=== PATIENT | female | born 1955 | race Caucasian/White ===

== ENCOUNTER 2016-09-22 13:11 | Emergency (ER) | payer OTHER ==
[2016-09-22 14:30] VITALS: BP 122/90
--- NOTE | 2016-09-22 14:47 | ED ---
Respiratory - History of Current Complaint Chief Complaint: UCRespiratory Stated Complaint: COUGH AND ACHES Hx Obtained From: Patient Onset/Duration: Gradual Onset - started last week with runny nose, now has dry cough and sinus leander. 3 months ago was treated for bronchitis and got better. Initial Severity: Mild Current Severity: Moderate Character: Cough (Nonproductive) Sputum Amount: Small Sputum Color: Clear Aggravating Factor(s): Nothing Alleviating Factor(s): Nothing - has tried no meds Associated Signs and Symptoms: Negative - no fever - Allergy/Home Medications Allergies/Adverse Reactions: Allergies Allergy/AdvReac Type Severity Reaction Status Date / Time Tramadol Allergy Intermediate Rash Verified 03/16/16 17:05 Codeine Allergy Unknown See Comment Verified 03/16/16 17:05 Ibuprofen AdvReac Intermediate stomach Verified 03/16/16 17:05 upset Sulfamethoxazole AdvReac Intermediate stomach Verified 03/16/16 17:05 w/Trimethoprim upset [From Bactrim] Amoxicillin AdvReac GI Upset Verified 03/16/16 17:05 PMH/Surg Hx/FS Hx/Imm Hx Previously Healthy: Yes Endocrine/Hematology History: Denies: Hx Anticoagulant Therapy, Hx Blood Disorders, Hx Blood Transfusions, Hx Bone Marrow Disease, Hx Diabetes, Hx Systemic Lupus Erythematosus, Hx Sickle Cell Disease, Hx Thyroid Disease, Hx Anemia, Hx Unexplained Bleeding Cardiovascular History: Reports: Hx Angina, Hx Hypercholesterolemia, Hx Hypertension, Other Cardiovascular Problems/Disorders - Hx HTN Denies: Hx Aneurysm, Hx Angioplasty, Hx Auto Implanted Cardiovert Defib, Hx Cardiac Arrest, Hx Cardiomegaly, Hx Congenital Heart Disease, Hx Congestive Heart Failure, Hx Coronary Artery Disease, Hx Deep Vein Thrombosis, Hx Embolism , Hx Hypotension, Hx Myocardial Infarction, Hx Pacemaker/ICD, Hx Rheumatic Fever , Hx Syncope, Hx Valvular Heart Disease Respiratory History: Reports: Hx Seasonal Allergies Denies: Hx Asthma, Hx Chronic Bronchitis, Hx Chronic Obstructive Pulmonary Disease (COPD), Hx Cystic Fibrosis, Hx Lung Cancer, Hx Pleural Effusion, Hx Pneumonia, Hx Pulmonary Edema, Hx Pulmonary Embolism, Hx Sleep Apnea GI History: Reports: Hx Irritable Bowel Denies: Hx Cirrhosis, Hx Crohn's Disease, Hx Diverticulosis, Hx Gall Bladder Disease, Hx Gastroesophageal Reflux Disease, Hx Gastrointestinal Bleed, Hx Hiatal Hernia, Hx Jaundice, Hx Obstructive Bowel, Hx Ulcer History: Reports: Hx Kidney Stones Denies: Hx Acute Renal Failure, Hx Chronic Renal Failure, Hx Dialysis, Hx Kidney Infection, Hx Renal Disease Musculoskeletal History: Reports: Hx Arthritis, Hx Back Problems, Hx Orthopedic Injury - broken left foot x2, Hx Osteoporosis, Hx Scoliosis Denies: Hx Rheumatoid Arthritis, Hx Bursitis, Hx Congenital Bone Abnormalities, Hx Fibromyalgia, Hx Gout, Hx Tendonitis Sensory History: Reports: Hx Contacts or Glasses - bifocals Denies: Hx Cataracts, Hx Glaucoma, Hx Macular Degeneration, Hx Deafness, Hx Hearing Aid Opthamlomology History: Reports: Hx Contacts or Glasses - bifocals Denies: Hx Cataracts, Hx Glaucoma, Hx Macular Degeneration Psychiatric History: Reports: Hx Anxiety, Hx Depression, Hx Community Mental Health Tx Denies: Hx Attention Deficit Hyperactivity Disorder, Hx Eating Disorder, Hx Panic Disorder, Hx Post Traumatic Stress Disorder, Hx Inpatient Treatment, Hx Schizophrenia, Hx Bipolar Disorder, Hx Suicide Attempt, Hx of Violent Episodes Against Others, Hx Substance Abuse - Cancer History Hx Chemotherapy: No Hx Radiation Therapy: No - Surgical History Surgery Procedure, Year, and Place: LEFT and Right BREAST cys REMOVED. tonsillectomy 1957. tubal ligation 1996 - Immunization History Date of Tetanus Vaccine: Unk Date of Influenza Vaccine: Fall 2012 Infectious Disease History: No Infectious Disease History: Denies: Hx Hepatitis, Hx Tuberculosis, History Other Infectious Disease, Traveled Outside the [place] in Last 30 Days - Family History Known Family History: Positive: Diabetes - Social History Occupation: Disabled Lives: Alone Alcohol Use: None Substance Use Type: Reports: None Hx Tobacco Use: No Smoking Status (MU): Former Smoker Have You Smoked in the Last Year: No Review of Systems Constitutional: Negative Negative: Fever, Chills Eyes: Negative Negative: Drainage Positive: Nasal Discharge - clear. Negative: Sore Throat Cardiovascular: Negative Positive: Cough. Negative: Shortness Of Breath Gastrointestinal: Negative Negative: Abdominal Pain, Diarrhea, Nausea Musculoskeletal: Negative Skin: Negative Negative: Rash Neurological: Negative Negative: Headache Psychological: Normal All Other Systems Reviewed And Are Negative: Yes Physical Exam Triage Information Reviewed: Yes Vital Signs On Initial Exam: Initial Vitals Temp Pulse Resp BP Pulse Ox 97.5 F 78 18 122/90 95 09/22/16 14:27 09/22/16 14:27 09/22/16 14:27 09/22/16 14:27 09/22/16 14:27 Vital Signs Reviewed: Yes Appearance: Positive: Well-Appearing, No Pain Distress, Well-Nourished Skin: Positive: Warm, Skin Color Reflects Adequate Perfusion Eyes: Positive: Conjunctiva Clear ENT: Positive: Pharynx normal, Nasal congestion, TMs normal Neck: Positive: No Lymphadenopathy Respiratory/Lung Sounds: Positive: Clear to Auscultation Cardiovascular: Positive: Normal, RRR, Pulses are Symmetrical in both Upper and Lower Extremities Neurological: Positive: Normal, Sensory/Motor Intact, Alert, Oriented to Person Place, Time Psychiatric: Positive: Normal Diagnostics - Vital Signs Vital Signs Temp Pulse Resp BP Pulse Ox 09/22/16 14:27 97.5 F 78 18 122/90 95 - Laboratory Lab Statement: Any lab studies that have been ordered have been reviewed, and results considered in the medical decision making process. Disposition - Differential Dx - Cardiopulmonary Differential Diagnoses - Cardiopulmonary: Bronchitis, Influenza, Lower Resp Infection, Sinusitis, Other - URI - Diagnoses Provider Diagnoses: Upper respiratory infection Discharge - Discharge Plan Condition: Stable Disposition: HOME Patient Education Materials: Upper Respiratory Infection (ED) Referrals: Kenzie Will MD [Primary Care Provider] - 2 Days (if no better) Additional Instructions: drink extra fluids and rest Use Robitussin DM cough syrup as directed (this is over the counter) return here or to the ER if your symptoms worsen at any time
== END 2016-09-22 15:13 | disposition home or self-care (01) ==
LOC: UCEAST 13:11
DX: J06.9 Acute upper respiratory infection, unspecified (principal); Z88.5 Allergy status to narcotic agent; Z88.6 Allergy status to analgesic agent; Z88.0 Allergy status to penicillin; Z88.2 Allergy status to sulfonamides; Z87.891 Personal history of nicotine dependence
CPT/HCPCS: 99212; G0463

== ENCOUNTER 2017-09-30 13:23 | Emergency (ER) | payer OTHER ==
[2017-09-30 13:42] VITALS: BP 126/93
--- NOTE | 2017-09-30 13:43 | UC ---
Throat Pain/Nasal Augusto HPI - HPI Summary HPI Summary: Pt presents with post nasal drip and cough for the last 3 weeks. She has not taken anything OTC for this. Denies fever, chills, sore throat, SOB, chest pain , abdominal pain, n/v/d/c. - History of Current Complaint Chief Complaint: UCGeneralIllness Stated Complaint: RESP COMPLAINT Time Seen by Provider: 09/30/17 13:40 Hx Obtained From: Patient Hx Last Menstrual Period: na Onset/Duration: Gradual Onset Pain Intensity: 0 Pain Scale Used: 0-10 Numeric Cough: Nonproductive - Allergies/Home Medications Allergies/Adverse Reactions: Allergies Allergy/AdvReac Type Severity Reaction Status Date / Time MS Tramadol [Tramadol] Allergy Intermediate Rash Verified 03/16/16 17:05 nitrofurantoin Allergy Intermediate vomit Verified 09/30/17 13:42 [From Macrobid] MS Codeine [Codeine] Allergy Unknown See Comment Verified 03/16/16 17:05 MS Ibuprofen [Ibuprofen] AdvReac Intermediate stomach Verified 03/16/16 17:05 upset MS Sulfamethoxazole AdvReac Intermediate stomach Verified 03/16/16 17:05 w/Trimethoprim upset [From Bactrim] MS Amoxicillin [Amoxicillin] AdvReac GI Upset Verified 03/16/16 17:05 Home Medications: Home Medications Atenolol TAB* [Tenormin TAB* 25 MG] 25 mg PO DAILY 09/30/17 [History Confirmed 09/30/17] Atorvastatin* [Lipitor*] 40 mg PO 1700 09/30/17 [History Confirmed 09/30/17] OLANzapine TAB* [Zyprexa 2.5 MG TAB*] 2.5 mg PO BEDTIME 09/30/17 [History Confirmed 09/30/17] PMH/Surg Hx/FS Hx/Imm Hx Cardiovascular History: Hypertension Psychological History: Anxiety, Depression, Bipolar Disorder Other History Of: Negative For: Anticoagulant Therapy - Surgical History Surgical History: Yes Surgery Procedure, Year, and Place: LEFT and Right BREAST cys REMOVED. tonsillectomy 1957. tubal ligation 1996 - Family History Known Family History: Positive: Diabetes - Social History Lives: With Family Alcohol Use: None Substance Use Type: None Smoking Status (MU): Former Smoker Have You Smoked in the Last Year: No When Did the Patient Quit Smoking/Using Tobacco: 20 years ago - Immunization History Most Recent Influenza Vaccination: 2014 Most Recent Tetanus Shot: UP TO DATE Most Recent Pneumonia Vaccination: 2011 Review of Systems Constitutional: Negative Skin: Negative Eyes: Negative ENT: Other - Post nasal drip Respiratory: Cough Cardiovascular: Negative Gastrointestinal: Negative Neurological: Negative Psychological: Negative All Other Systems Reviewed And Are Negative: Yes Physical Exam Triage Information Reviewed: Yes Appearance: Well-Appearing, No Pain Distress, Well-Nourished Vital Signs: Initial Vital Signs Temp 99.3 F 09/30/17 13:37 Pulse 76 09/30/17 13:37 Resp 18 09/30/17 13:37 BP 126/93 09/30/17 13:37 Pulse Ox 98 09/30/17 13:37 Vital Signs Reviewed: Yes Eyes: Positive: Conjunctiva Clear. Negative: Conjunctiva Inflamed, Discharge ENT: Positive: Hearing grossly normal, Pharynx normal, Uvula midline, Other - Right ear with occluding cerumen. Negative: Pharyngeal erythema, Nasal congestion, Nasal drainage, TM bulging, TM dull, TM red, Tonsillar swelling, Tonsillar exudate, Muffled voice, Hoarse voice, Sinus tenderness Neck: Positive: Supple, Nontender, No Lymphadenopathy Respiratory: Positive: Chest non-tender, Lungs clear, Normal breath sounds, No respiratory distress, No accessory muscle use Cardiovascular: Positive: RRR, No Murmur, Pulses Normal Neurological: Positive: Alert Psychological: Positive: Age Appropriate Behavior Skin: Negative: rashes Throat Pain/Nasal Course/Dx - Course Course Of Treatment: Cerumen disimpaction of right ear today. Post nasal drip - has not tried anything OTC. Will advise to try claritin and flonase. Tylenol prn discomfort. - Differential Dx/Diagnosis Provider Diagnoses: Post nasal drip. Cerumen impaction right ear Discharge - Discharge Plan Condition: Stable Disposition: HOME Prescriptions: Acetaminophen TAB* [Tylenol TAB*] 325 mg PO Q6H PRN #30 tab PRN Reason: Pain Fluticasone NASAL SPRAY 50MCG* [Flonase NASAL SPRAY 50MCG*] 1 spray BOTH NARES DAILY #1 btl Loratadine [Claritin] 10 mg PO DAILY #14 tablet Patient Education Materials: Postnasal Drip (DC) Referrals: Kenzie Will MD [Primary Care Provider] - Additional Instructions: If you develop a fever, shortness of breath, chest pain, new or worsening symptoms - please call your PCP or go to the ED.
== END 2017-09-30 14:35 | disposition home or self-care (01) ==
LOC: UCEAST 13:23
DX: R09.82 Postnasal drip (principal); H61.21 Impacted cerumen, right ear; I10 Essential (primary) hypertension; F41.9 Anxiety disorder, unspecified; F31.9 Bipolar disorder, unspecified; Z88.6 Allergy status to analgesic agent; Z88.1 Allergy status to other antibiotic agents; Z88.5 Allergy status to narcotic agent; Z88.2 Allergy status to sulfonamides; Z87.891 Personal history of nicotine dependence
CPT/HCPCS: 99213; G0463

== ENCOUNTER 2018-03-14 12:59 | Emergency (ER) | payer OTHER ==
[2018-03-14 13:06] VITALS: BP 119/92
--- OUTSIDE RECORDS SUMMARY | 2018-03-14 13:06 | XMS REPORT ---
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 Active Onset: 06/29/2011 Lumbar sprain Ankita Clements M.D. Active Onset: 06/29/2011 Essential hypertension Ankita Clements M.D. Active Onset: 06/29/2011 Recurrent major depressive episodes Ankita Clements M.D. Active Onset: 06/29/2011 Obesity Ankita Clements M.D. Active Onset: 06/29/2011 Disorder of lipid metabolism Ankita Clements M.D. Active Onset: 10/15/2011 Arthralgia of the pelvic region and Selwyn Pillai M.D. Active thigh Onset: 10/15/2011 Swelling of limb Selwyn Pillai M.D. Active Onset: 01/26/2014 Abnormal renal function Ankita Clements M.D. Active Onset: 07/31/2011 Chronic kidney disease stage 3 Kenzie Will M.D. Active Onset: 01/21/2017 Left bundle branch hemiblock Kenzie Will M.D. 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 2 children cig no social smoker quit 10 yrs ago etoh no exercise no caffiene no Allergies, Adverse Reactions, Alerts Date Description Reaction Status Severity Comments 06/15/2011 Codeine Anaphylaxis, Nausea and active Vomiting 03/27/2013 Tramadol stomach pain active 06/13/2015 Caffeine active 06/06/2016 Macrobid active Nausea, headache Medications Medication Date Status Form Strength Qnty SIG Indications Ordering Provider Multi-Vitamin 02/13/ Active Tablets 30tab 1 by mouth Kenzie Daily 2018 s every day Zully Will Rollator 07/31/ Active Misc 1unit M21.962 Kenzie Ultra-Light/2016 s Rachid Will,Seat M.DPrimitivo And Brakes Wheelchair 07/29/ Active Misc 1unit basket/chair Kenzie 2016 s as needed Dx dawn Will1.962 MPrimitivoDPrimitivo Metoprolol 07/10/ Active Tablets ER 25mg 90tab 1 by mouth Kenzie Succinate ER 2016 24HR s every day Zully Will Elkins-3 08/16/ Active Capsules 1000mg 60cap 2 by mouth Kenzie 2016 s qd. Zully Will Blood Pressure 06/15/ Active Misc 1unit in the I10 Ankita Monitor 2013 s morning and Felipe Clements/Manual at night M.DPrimitivo Inflate Atorvastatin 06/15/ Active Tablets 40mg 90tab take one E78.2 Kenzie Calcium 2013 s tablet by Suman, mouth at M.D. bedtime Colace 01/07/ Active Capsules 100mg 60cap 2 capsules by K59.00 Kenzie 2013 s mouth at Suman, bedtime as M.D. needed for constipation Tylenol 12/30/ Active Tablets 325mg 60tab 2 tabs q Kenzie 2013 s 4hours as larissa Will M.DPrimitivo Calcium 500/D 12/02/ Active Chewtabs 500-400mg 90uni 3 times a day Kenzie 2013 -Unit ts Will, M.D. Walker 10/15/ 1unit as needed 847.2 Ankita 2011 angel Clements M.D. 729.81 Lactaid Ultra 07/25/2011 Active Tablets 9000Unit 60tabs 1 po prn Ankita Clements M.D. Clonazepam Active Tablets .5mg 90tabs 1/2-1 po bid Unknown and 1 at bedtime Sertraline HCL Active Tablets 100mg 90tabs 2 po qd Unknown Bupropion HCL Active Tablets ER 150mg 60tabs 1 po bid Selwyn SR 12HR Zully Pillai Olanzapine Active Tablets 2.5mg 30tabs [address] Garrett Alex Probiotic Active Capsules 1 by mouth Unknown every day Augmentin 08/14/2016 - Hx Tablets 875-125mg 20tabs 1 tab by Jeromy Espino 01/21/2017 mouth twice a 0 Will, day 2 M.D. . 8 1 8 Bactrim DS 06/06/2016 - Hx Tablets 800-160mg 20tabs 1 by mouth Asaf Cortez 07/22/2016 twice a day 3 Isidra, 5 M.D. . 0 Macrobid 06/04/2016 - Hx Capsules 100mg 14caps 1 tab by Asaf Cortez 06/06/2016 mouth twice a 3 Isidra, day x 7 days 5 M.D. . 0 Cleocin 06/17/2015 - Hx Capsules 300mg 28caps 1 capsule Qid Jeromy Dumont 07/21/2015 x 7 days 0 Red, RELIEF DRILLER 3 . 1 1 4 Doxycycline 06/13/2015 - Hx Capsules 100mg 20caps 1 tab by Jeromy Dumont Hyclate 06/17/2015 mouth twice a 0 Red, RELIEF DRILLER day x 10 days 3 . 1 1 9 Azithromycin 01/18/2015 - Hx Tablets 250mg 6tabs take 2 tab on 4 Kenzie 03/18/2015 day 1 then 1 6 Will, tab daily x 4 6 M.D. days . 0 Loratadine 01/05/2015 - Hx Tablets 10mg 30tabs 1 by mouth 9 Kenzie 03/18/2015 every day as 9 Will, needed 5 M.D. . 3 Atenolol 06/15/2014 - Hx Tablets 25mg 90tabs take one Kenzie 07/10/2017 tablet by Suman, mouth once M.D. daily Elkins 3 03/04/2014 - Hx Capsules 1000mg 60caps take 2 Víctor E. 08/16/2016 capsules Isidra, daily M.D. Senna-Tabs 01/07/2014 - Hx Tablets 8.6mg 30tabs 1 tab po 5 Ankita 06/13/2015 every day as 6 Tyree, needed 4 M.D. . 0 0 Fiber 01/07/2014 - Hx Tablets 625mg 30tabs 1 po every 5 Ankita 12/10/2014 day as needed 6 Tyree, for 4 M.D. constipation . 0 0 Tramadol HCL 12/18/2012 - Hx Tablets 50mg 20tabs 1 po 2x per 7 Ankita 01/16/2013 day 2 Tyree, 2 M.D. . 9 3 Flexeril 11/10/2012 - Hx Tablets 10mg 30tabs 1 tab by Ankita 12/10/2014 mouth at Tyree, bedtime as M.D. needed Naproxen 04/15/2012 - Hx Tablets 550mg 60tabs 1 po bid Herminio Sodium 12/18/2012 Zully Pappas Alendronate 03/11/2012 - Hx Tablets 70mg 12tabs 1 po weekly Ankita Sodium 04/08/2012 Zully Clements Lipitor 10/19/2011 - Hx Tablets 40mg 90tabs 1 po qhs Ankita 01/07/2014 Zully Clements Boniva 08/09/2011 - Hx Tablets 150mg 4tabs once a month Deborah 06/15/2014 Zully Jacobo Calcium 07/27/2011 - Hx 60units 2 tabs qd [place] Citrate With 12/02/2012 [place] Vitamin D Zully Ibuprofen 07/25/2011 - Hx Tablets 200mg 90tabs prn Ankita 07/21/2015 Zully Clements Loperamide HCL 07/25/2011 - Hx Capsules 2mg 30caps 2 tabs with Ankita 12/18/2012 first loose Clements, stool, then 1 M.D. q2hr prn loose stool Milk Of 07/25/2011 - Hx Suspension 400mg/5ML Ankita Magnesia 07/25/2011 Zully Clements Lactaid 07/25/2011 - Hx Tablets 3000Unit Ankita 07/25/2011 Zully Clements Lactaid Fast 07/25/2011 - Hx Tablets 9000Unit Ankita Act 07/25/2011 Zully Clements Milk Of 07/25/2011 - Hx Suspension 1200mg/15 1Bottle 30 ml po qd Ankita Magnesia 06/13/2015 ML prn Zully Clements Alendronate 06/29/2011 - Hx Tablets 70mg 12tabs 1 po weekly 7 Ankita Sodium 08/07/2011 3 Tyree, 3 M.D. . 0 0 Calcium 06/29/2011 - Hx Chewtabs 600-400mg 60units 1 tab po 2x 7 Ankita Creamies 07/27/2011 -Unit per day with 3 Tyree, food 3 M.D. . 0 0 Lipitor 06/26/2011 - Hx Tablets 10mg 90tabs 1 po qhs Ankita 10/19/2011 Zully Clements Vitamin D 06/26/2011 - Hx Tablets 1000Unit 30tabs 1 tab po Ankita 08/22/2012 every day Zully Clements Elkins 3 06/26/2011 - Hx Capsules 1000mg 60caps Take 2 Ankita 08/07/2011 capsules gume Clements M.D. Multi-Vitamin - Hx Tablets 30tabs 1 by mouth Kenzie 02/13/2018 every day Zully Will Atenolol - Hx Tablets 50mg 30tabs 1 by mouth Kenzie 06/15/2014 every day uZlly Will Zyprexa - Hx Tablets 2.5mg 90tabs 1 po qhs Unknown 08/22/2012 Multiple - Hx Tablets 100tabs 1 po qd Unknown Vitamin With 08/07/2011 Ginkgo Lovaza - Hx Capsules 1gm 60caps 1 po bid Ankita 10/19/2011 Zully Clements Oxycodone/Acet - Hx Tablets 5-325mg 60tabs 1-2 tabs poq Ankita aminophen 06/13/2015 6 hour only Clements, 2x per day as M.D. needed pain Lomotil - Hx Tablets 2.5-0.025 20tabs po qid prn Unknown 03/27/2013 mg diarrhea Atorvastatin - Hx Tablets 40mg 30tabs 1 po qd Unknown Calcium 01/28/2014 Levaquin - Hx Tablets 500mg 7tabs 1 by mouth Unknown 09/17/2014 every day x 7 days Rollator - Hx 1units Ancelmo Will W/4 07/31/2017 Rachid Espino Brakes, MD Seat Immunizations CPT Code Status Date Vaccine Lot # [id number] Given 01/21/2018 Pneumococcal Conjugate Vaccine 13 Valent For [id number] Intramuscular Use 62574 Given 04/13/2017 Influenza Virus Vaccine, Quadrivalent, Split, Preservative Free [id number] Given 04/13/2017 Influenza Virus Vaccine, Quadrivalent, Split, Preservative Free 80778 Given 07/23/2016 Zoster (Zostavax) [id number] 27564 Given 05/11/2016 Influenza Virus Vaccine, Quadrivalent, Split, Preservative Free [id number] Given 05/17/2015 Flu Vaccine NOS [id number] Given 05/28/2014 Flu Vaccine Split Virus Preservative Free For Indiv 3Yr Older [id number] Given 07/31/2013 Flu Vaccine Split Virus Preservative Free For [id number] Indiv 3Yr Older 91538 Given 06/15/2011 Tdap - Tetanus/Diptheria/Acellular Pertussis [id number] Vital Signs Date Vital Result Comment 01/21/2018 Height 61.3 inches 5'1.30" Weight 182.00 lb Heart Rate 84 /min BP Systolic 130 mmHg R arm BP Diastolic 85 mmHg R arm Body Temperature 98.4 F O2 % BldC Oximetry 98 % BMI (Body Mass Index) 34.0 kg/m2 07/23/2017 Height 61.3 inches 5'1.30" Weight 181.00 lb Heart Rate 77 /min BP Systolic Sitting 130 mmHg BP Diastolic Sitting 90 mmHg O2 % BldC Oximetry 92 % BMI (Body Mass Index) 33.9 kg/m2 01/28/2017 Height 62 inches 5'2" Weight 180.50 lb no shoes Heart Rate 84 /min BP Systolic 126 mmHg Lue reg cuff BP Diastolic 90 mmHg Lue reg cuff BP Systolic Sitting 132 mmHg Rue reg cuff BP Diastolic Sitting 94 mmHg Rue reg cuff BP Systolic Standing 126 mmHg Rue reg cuff BP Diastolic Standing 94 mmHg Rue reg cuff Respiratory Rate 16 /min BMI (Body Mass Index) 33.0 kg/m2 01/21/2017 Weight 179.00 lb Heart Rate 80 /min BP Systolic Sitting 110 mmHg BP Diastolic Sitting 76 mmHg O2 % BldC Oximetry 94 % 08/14/2016 Height 62 inches 5'2" Weight 179.00 lb Heart Rate 93 /min BP Systolic 104 mmHg BP Diastolic 60 mmHg Body Temperature 99.7 F O2 % BldC Oximetry 98 % BMI (Body Mass Index) 32.7 kg/m2 07/23/2016 Height 62 inches 5'2" Weight 181.25 lb Heart Rate 66 /min BP Systolic 120 mmHg BP Diastolic 80 mmHg Body Temperature 98.7 F O2 % BldC Oximetry 98 % BMI (Body Mass Index) 33.1 kg/m2 06/04/2016 Heart Rate 79 /min BP Systolic Sitting 128 mmHg BP Diastolic Sitting 88 mmHg Body Temperature 99.4 F O2 % BldC Oximetry 97 % 05/28/2016 Weight 179.00 lb Heart Rate 77 /min BP Systolic Sitting 120 mmHg BP Diastolic Sitting 86 mmHg Body Temperature 99.2 F O2 % BldC Oximetry 98 % 01/20/2016 Height 61.5 inches 5'1.50" Weight 182.00 lb Heart Rate 73 /min BP Systolic Sitting 128 mmHg BP Diastolic Sitting 80 mmHg Body Temperature 98.7 F BMI (Body Mass Index) 33.8 kg/m2 07/21/2015 Height 61.5 inches 5'1.50" Weight 178.00 lb Heart Rate 80 /min BP Systolic Sitting 139 mmHg BP Diastolic Sitting 93 mmHg Body Temperature 97.6 F BMI (Body Mass Index) 33.1 kg/m2 06/17/2015 Weight 177.00 lb Heart Rate 80 /min BP Systolic Sitting 116 mmHg BP Diastolic Sitting 86 mmHg Body Temperature 98.3 F 06/13/2015 Weight 179.00 lb Heart Rate 93 /min BP Systolic Sitting 109 mmHg BP Diastolic Sitting 69 mmHg Body Temperature 99.6 F 03/18/2015 Height 62 inches 5'2" Weight 177.00 lb Heart Rate 68 /min BP Systolic Sitting 110 mmHg BP Diastolic Sitting 60 mmHg Body Temperature 98.4 F O2 % BldC Oximetry 97 % BMI (Body Mass Index) 32.4 kg/m2 01/18/2015 Weight 178.25 lb Heart Rate 83 /min BP Systolic Sitting 138 mmHg BP Diastolic Sitting 98 mmHg Respiratory Rate 16 /min Body Temperature 98.7 F O2 % BldC Oximetry 95 % 01/05/2015 Weight 177.25 lb Heart Rate 81 /min BP Systolic Sitting 121 mmHg BP Diastolic Sitting 88 mmHg 09/17/2014 Weight 179.00 lb Heart Rate 84 /min BP Systolic Sitting 142 mmHg BP Diastolic Sitting 92 mmHg Body Temperature 98.2 F 08/17/2014 Weight 174.00 lb Heart Rate 64 /min BP Systolic Sitting 126 mmHg BP Diastolic Sitting 82 mmHg Body Temperature 98.3 F 06/15/2014 Weight 170.00 lb Heart Rate 70 /min BP Systolic Sitting 118 mmHg BP Diastolic Sitting 72 mmHg 01/07/2014 Weight 171.00 lb Heart Rate 90 /min BP Systolic Sitting 128 mmHg BP Diastolic Sitting 80 mmHg 10/21/2013 Height 62 inches 5'2" Weight 165.00 lb Heart Rate 86 /min BP Systolic 129 mmHg BP Diastolic 82 mmHg BMI (Body Mass Index) 30.2 kg/m2 09/25/2013 Height 62 inches 5'2" Weight 165.00 lb Heart Rate 78 /min BP Systolic 130 mmHg BP Diastolic 90 mmHg BMI (Body Mass Index) 30.2 kg/m2 08/28/2013 Weight 175.00 lb Heart Rate 76 /min BP Systolic Sitting 126 mmHg BP Diastolic Sitting 82 mmHg 07/31/2013 Weight 176.00 lb Heart Rate 82 /min BP Systolic Sitting 123 mmHg BP Diastolic Sitting 84 mmHg 03/27/2013 Weight 169.25 lb Heart Rate 76 /min BP Systolic Sitting 120 mmHg BP Diastolic Sitting 86 mmHg 01/22/2013 Weight 168.25 lb Heart Rate 74 /min BP Systolic Sitting 136 mmHg BP Diastolic Sitting 95 mmHg 12/18/2012 Weight 168.00 lb Heart Rate 75 /min BP Systolic Sitting 120 mmHg BP Diastolic Sitting 82 mmHg Body Temperature 98.4 F O2 % BldC Oximetry 98 % 09/18/2012 Height 63 inches 5'3" Weight 169.00 lb Heart Rate 72 /min BP Systolic Sitting 122 mmHg BP Diastolic Sitting 68 mmHg Body Temperature 98.8 F BMI (Body Mass Index) 29.9 kg/m2 08/22/2012 Height 63 inches 5'3" Weight 169.00 lb Heart Rate 68 /min BP Systolic Sitting 118 mmHg BP Diastolic Sitting 80 mmHg BMI (Body Mass Index) 29.9 kg/m2 04/08/2012 Height 63 inches 5'3" Weight 173.00 lb Heart Rate 64 /min BP Systolic 118 mmHg BP Diastolic 74 mmHg Respiratory Rate 16 /min Body Temperature 98.3 F BMI (Body Mass Index) 30.6 kg/m2 01/18/2012 Height 63 inches 5'3" Weight 177.00 lb Heart Rate 68 /min BP Systolic Sitting 110 mmHg BP Diastolic Sitting 80 mmHg BMI (Body Mass Index) 31.4 kg/m2 12/07/2011 Height 63 inches 5'3" Weight 172.00 lb Heart Rate 60 /min BP Systolic Sitting 122 mmHg BP Diastolic Sitting 90 mmHg BMI (Body Mass Index) 30.5 kg/m2 11/13/2011 Height 63 inches 5'3" Weight 170.00 lb Heart Rate 64 /min BP Systolic Sitting 126 mmHg BP Diastolic Sitting 90 mmHg BMI (Body Mass Index) 30.1 kg/m2 10/15/2011 Height 63 inches 5'3" Weight 172.00 lb pt has a boot on. Heart Rate 76 /min BP Systolic Sitting 140 mmHg BP Diastolic Sitting 90 mmHg BMI (Body Mass Index) 30.5 kg/m2 08/07/2011 Height 63 inches 5'3" Weight 158.00 lb Heart Rate 76 /min BP Systolic Sitting 130 mmHg BP Diastolic Sitting 80 mmHg BMI (Body Mass Index) 28.0 kg/m2 06/29/2011 Height 63 inches 5'3" Weight 153.00 lb Heart Rate 60 /min BP Systolic Sitting 120 mmHg BP Diastolic Sitting 82 mmHg BMI (Body Mass Index) 27.1 kg/m2 06/15/2011 Height 63 inches 5'3" Weight 150.00 lb Heart Rate 84 /min BP Systolic Sitting 150 mmHg BP Diastolic Sitting 100 mmHg BMI (Body Mass Index) 26.6 kg/m2 Results Test Date Test Result H/L Range Note CBC Auto Diff 12/10/2017 White Blood Count 6.4 10^3/uL 3.5-10.8 Red Blood Count 4.81 10^6/uL 4.0-5.4 Hemoglobin 15.3 g/dL 12.0-16.0 Hematocrit 45 % 35-47 Mean Corpuscular Volume 94 fL 80-97 Mean Corpuscular Hemoglobin 32 pg High 27-31 Mean Corpuscular HGB Conc 34 g/dL 31-36 Red Cell Distribution Width 14 % 10.5-15 Platelet Count 277 10^3/uL 150-450 Mean Platelet Volume 8.2 um3 7.4-10.4 Abs Neutrophils 4.5 10^3/uL 1.5-7.7 Abs Lymphocytes 0.9 10^3/uL Low 1.0-4.8 Abs Monocytes 0.6 10^3/uL 0-0.8 Abs Eosinophils 0.4 10^3/uL 0-0.6 Abs Basophils 0.1 10^3/uL 0-0.2 Abs Nucleated RBC 0 10^3/uL Granulocyte % 70.1 % 38-83 Lymphocyte % 14.0 % Low 25-47 Monocyte % 9.3 % High 0-7 Eosinophil % 5.6 % 0-6 Basophil % 1.0 % 0-2 Nucleated Red Blood Cells % 0.1 Lipid Profile (Trig/Chol/HDL) 07/12/2017 Triglycerides 100 mg/dL 1 Cholesterol 165 mg/dL 2 HDL Cholesterol 69.2 mg/dL 3 LDL Cholesterol 76 mg/dL 4 Comp Metabolic Panel 07/12/2017 Sodium 141 mmol/L 133-145 Potassium 4.1 mmol/L 3.5-5.0 Chloride 106 mmol/L 101-111 Co2 Carbon Dioxide 27 mmol/L 22-32 Anion Gap 8 mmol/L 2-11 Glucose 88 mg/dL 70-100 Blood Urea Nitrogen 22 mg/dL 6-24 Creatinine 1.15 mg/dL High 0.51-0.95 BUN/Creatinine Ratio 19.1 8-20 Calcium 9.6 mg/dL 8.6-10.3 Total Protein 6.2 g/dL Low 6.4-8.9 Albumin 3.9 g/dL 3.2-5.2 Globulin 2.3 g/dL 2-4 Albumin/Globulin Ratio 1.7 1-3 Total Bilirubin 0.60 mg/dL 0.2-1.0 Alkaline Phosphatase 97 U/L 34-104 Alt 14 U/L 7-52 Ast 17 U/L 13-39 Egfr Non- 47.8 >60 Egfr 61.5 >60 5 Basic Metabolic Panel 01/14/2017 Sodium 139 mmol/L 133-145 Potassium 4.0 mmol/L 3.5-5.0 Chloride 106 mmol/L 101-111 Co2 Carbon Dioxide 26 mmol/L 22-32 Anion Gap 7 mmol/L 2-11 Glucose 87 mg/dL 70-100 Blood Urea Nitrogen 24 mg/dL 6-24 Creatinine 1.22 mg/dL High 0.51-0.95 BUN/Creatinine Ratio 19.7 8-20 Calcium 9.7 mg/dL 8.6-10.3 Egfr Non- 44.7 >60 Egfr 57.4 >60 6 Laboratory test finding 07/12/2016 Hepatitis C Antibody Nonreactive Nonreactive 7 Comp Metabolic Panel 07/12/2016 Sodium 140 mmol/L 133-145 Potassium 4.0 mmol/L 3.5-5.0 Chloride 105 mmol/L 101-111 Co2 Carbon Dioxide 29 mmol/L 22-32 Anion Gap 6 mmol/L 2-11 Glucose 89 mg/dL 70-100 Blood Urea Nitrogen 17 mg/dL 6-24 Creatinine 1.22 mg/dL High 0.51-0.95 BUN/Creatinine Ratio 13.9 8-20 Calcium 9.6 mg/dL 8.6-10.3 Total Protein 6.8 g/dL 6.4-8.9 Albumin 4.1 g/dL 3.2-5.2 Globulin 2.7 g/dL 2-4 Albumin/Globulin Ratio 1.5 1-3 Total Bilirubin 0.60 mg/dL 0.2-1.0 Alkaline Phosphatase 101 U/L 34-104 Alt 16 U/L 7-52 Ast 15 U/L 13-39 Egfr Non- 44.8 >60 Egfr 57.6 >60 8 Lipid Profile (Trig/Chol/HDL) 07/12/2016 Triglycerides 111 mg/dL 9 Cholesterol 166 mg/dL 10 HDL Cholesterol 71.6 mg/dL 11 LDL Cholesterol 72 mg/dL 12 Ua Routine 06/04/2016 Ua Specific [place] 1.005 Ua PH 6 Ua Color yellow Ua Appera cloudy Ua WBC ++ Ua Protein trace Ua Glucose neg Ua Ketones neg Ua Bilirubin neg Ua Urobilinogen normal Ua Nitrite positive Ua Occult Blood trace Urine Culture And 06/04/2016 Urine Culture SEE RESULT BELOW 13 Sensitivities Pertussis PCR 10/16/2015 Bordetella Source Nasopharyngeal s <SEE 14 NOTE> Bordetella pertussis PCR Negative 15 Bordetella parapertussis PCR Negative 16 Creatinine Clearance 07/23/2015 Creatinine 1.22 mg/dL High 0.51-0.95 17 Urine Collection Time 24 17 Urine Total Volume 2050 mL 17 Urine Random Creatinine 69.00 mg/dL 17 Creatinine Clearance 81 mL/min Low 88-128 17 Comp Metabolic Panel 07/04/2015 Sodium 137 mmol/L 133-145 Potassium 4.1 mmol/L 3.5-5.0 Chloride 101 mmol/L 101-111 Co2 Carbon Dioxide 29 mmol/L 22-32 Anion Gap 7 mmol/L 2-11 Glucose 81 mg/dL 70-100 Blood Urea Nitrogen 26 mg/dL High 6-24 Creatinine 1.21 mg/dL High 0.51-0.95 BUN/Creatinine Ratio 21.5 High 8-20 Calcium 9.8 mg/dL 8.6-10.3 Total Protein 6.6 g/dL 6.4-8.9 Albumin 4.0 g/dL 3.2-5.2 Globulin 2.6 g/dL 2-4 Albumin/Globulin Ratio 1.5 1-3 Total Bilirubin 0.50 mg/dL 0.2-1.0 Alkaline Phosphatase 104 U/L 34-104 Alt 14 U/L 7-52 Ast 15 U/L 13-39 Egfr Non- 45.4 >60 Egfr 58.4 >60 18 Lipid Profile (Trig/Chol/HDL) 07/04/2015 Triglycerides 100 mg/dL 19 Cholesterol 159 mg/dL 20 HDL Cholesterol 66.8 mg/dL 21 LDL Cholesterol 72 mg/dL 22 Comp Metabolic Panel 02/24/2015 Sodium 140 mmol/L 133-145 Potassium 4.3 mmol/L 3.5-5.0 Chloride 105 mmol/L 101-111 Co2 Carbon Dioxide 30 mmol/L 22-32 Anion Gap 5 mmol/L 2-11 Glucose 79 mg/dL 70-100 Blood Urea Nitrogen 20 mg/dL 6-24 Creatinine 1.08 mg/dL High 0.51-0.95 BUN/Creatinine Ratio 18.5 8-20 Calcium 9.5 mg/dL 8.6-10.3 Total Protein 6.4 g/dL 6.4-8.9 Albumin 4.1 g/dL 3.2-5.2 Globulin 2.3 g/dL 2-4 Albumin/Globulin Ratio 1.8 1-3 Total Bilirubin 0.50 mg/dL 0.2-1.0 Alkaline Phosphatase 103 U/L 34-104 Alt 20 U/L 7-52 Ast 17 U/L 13-39 Egfr Non- 51.8 >60 Egfr 66.6 >60 23 Laboratory test finding 09/17/2014 Cytology RUN DATE: 09/20/ <SEE NOTE> 24 Human Papilloma Virus Rna Negative Negative 25 Basic Metabolic Panel 08/26/2014 Sodium 140 mmol/L 133-145 Potassium 4.0 mmol/L 3.5-5.0 Chloride 107 mmol/L 101-111 Co2 Carbon Dioxide 28 mmol/L 22-32 Anion Gap 5 mmol/L 2-11 Glucose 85 mg/dL 70-100 Blood Urea Nitrogen 18 mg/dL 6-24 Creatinine 1.24 mg/dL High 0.51-0.95 BUN/Creatinine Ratio 14.5 8-20 Calcium 9.5 mg/dL 8.6-10.3 Egfr Non- 44.1 >60 Egfr 56.7 >60 26 Comp Metabolic Panel 08/17/2014 Sodium 140 mmol/L 133-145 Potassium 3.9 mmol/L 3.5-5.0 Chloride 103 mmol/L 101-111 Co2 Carbon Dioxide 30 mmol/L 22-32 Anion Gap 7 mmol/L 2-11 Glucose 89 mg/dL 70-100 Blood Urea Nitrogen 21 mg/dL 6-24 Creatinine 1.28 mg/dL High 0.51-0.95 BUN/Creatinine Ratio 16.4 8-20 Calcium 9.7 mg/dL 8.6-10.3 Total Protein 6.7 g/dL 6.4-8.9 Albumin 4.0 g/dL 3.2-5.2 Globulin 2.7 g/dL 2-4 Albumin/Globulin Ratio 1.5 1-3 Total Bilirubin 0.50 mg/dL 0.2-1.0 Alkaline Phosphatase 98 U/L 34-104 Alt 16 U/L 7-52 Ast 16 U/L 13-39 Egfr Non- 42.7 >60 Egfr 54.9 >60 27 Lipid Profile (Trig/Chol/HDL) 07/29/2014 Triglycerides 123 mg/dL 28, 29 Cholesterol 177 mg/dL 28, 30 HDL Cholesterol 82.4 mg/dL 28, 31 LDL Cholesterol 70 mg/dL 28, 32 Laboratory test 07/29/2014 TSH (Thyroid 2.31 IU/mL 0.34-5.60 28, 33 finding Stimulating Horm) Testosterone 18.67 ng/dL 8-60 28, 34 Dhea 1.3 ng/mL <6.0 28, 35 Urinalysis Profile 03/20/2014 Urine Color Yellow Urine Appearance Clear Urine Specific [place] 1.015 1.010-1.030 Urine pH 6.0 5-9 Urine Urobilinogen Negative Negative Urine Ketones Negative Negative Urine Protein Negative Negative Urine Leukocytes 2+ Negative Urine Blood Negative Negative Urine Nitrite Negative Negative Urine Bilirubin Negative Negative Urine Glucose Negative Negative Urine White Blood Cell 1+(6-10/hpf) Absent Urine Red Blood Cell Trace Absent Urine Bacteria Absent Absent Urine Squamous Epithelial Cell Present Absent Urine Culture And Sensitivities 03/20/2014 Urine Culture (SEE NOTE) 36 Lipid Profile (Trig/Chol/HDL) 02/22/2014 Triglycerides 210 mg/dL 37, 38 Cholesterol 297 mg/dL 37, 39 HDL Cholesterol 55.8 mg/dL 37, 40 LDL Cholesterol 199 mg/dL 37, 41 Creatinine Clearance 01/22/2014 Urine Random Creatinine 71.12 mg/dL 42 Creatinine 1.45 mg/dL High 0.51-0.95 42 Creatinine Clearance 45 mL/min Low 88-128 42 Urine Collection Time 24 42 Urine Total Volume 1325 mL 42 Alkaline Phos Isoenzymes 01/20/2014 Alkaline Phosphatase 136 U/L 46 - 118 Alp Liver 1% 62.8 % 27.8-76.3 Alp Liver 1 85.4 IU/L 16.2-70.2 Alp Liver 2% 8.6 % 0.0-8.0 Alp Liver 2 11.7 IU/L 0.0-5.8 Alp Bone % 28.6 % 19.1-67.7 Alp Bone 38.9 IU/L 12.1-42.7 Alp Intestine % 0.0 % 0.0-20.6 Alp Intestine 0.0 IU/L 0.0-11.0 Alp Placental NotPresent 43 Urinalysis Profile 01/14/2014 Urine Color Yellow Urine Appearance Clear Urine Specific [place] 1.015 1.010-1.030 Urine Esterase Trace Negative Urine Nitrate Negative Negative Urine Urobilinogen Negative E.U./dL Negative Urine Protein Negative mg/dL Negative Urine pH 6.0 5-9 Urine Blood Negative Negative Urine Ketones Negative mg/dL Negative Urine Bilirubin Negative Negative Urine Glucose Negative mg/dL Negative Urine Microscopic 01/14/2014 Urine WBC 1+ (<10 /hpf) None Seen Urine Mucus Present /lpf Absent Urine Epithelial Cells 1+ Urothelial /hpf None Seen Urine Epithelial Cells 1+ Squamous /hpf None Seen Comp Metabolic Panel 01/14/2014 Sodium 138 mmol/L 133-145 Potassium 4.7 mmol/L 3.7-5.6 Chloride 102 mmol/L 101-111 Co2 Carbon Dioxide 28 mmol/L 22-32 Anion Gap 8 mmol/L 2-11 Glucose 85 mg/dL 70-100 Blood Urea Nitrogen 27 mg/dL High 6-24 Creatinine 1.61 mg/dL High 0.51-0.95 BUN/Creatinine Ratio 16.8 8-20 Calcium 10.0 mg/dL 8.6-10.3 Total Protein 7.0 g/dL 6.4-8.9 Albumin 3.9 g/dL 3.2-5.2 Globulin 3.1 g/dL 2-4 Albumin/Globulin Ratio 1.3 1-3 Total Bilirubin 0.50 mg/dL 0.2-1.0 Alkaline Phosphatase 173 U/L High 34-104 Alt 17 U/L 7-52 Ast 14 U/L 13-39 Egfr Non- 32.8 >60 Egfr 42.1 >60 44 Urinalysis Profile 12/30/2013 Urine Color Yellow 45 Urine Appearance Turbid 45 Urine Specific [place] 1.024 1.010-1.030 45 Urine Esterase 3+ Negative 45 Urine Nitrate Positive Negative 45 Urine Urobilinogen Negative E.U./dL Negative 45 Urine Protein 2+ mg/dL Negative 45 Urine pH 5.5 5-9 45 Urine Blood 3+ Negative 45 Urine Ketones Negative mg/dL Negative 45 Urine Bilirubin Negative Negative 45 Urine Glucose Negative mg/dL Negative 45 Urine Microscopic 12/30/2013 Urine WBC 3+ (>30 /hpf) None Seen 45 Urine RBC 2+ (>3-10 /hpf) None Seen 45 Urine Mucus Present /lpf Absent 45 Urine Epithelial Cells 1+ Squamous /hpf None Seen 45 Bacteria Urine 3+ None Seen 45 CBC Auto Diff 12/30/2013 White Blood Count 12.1 10^3/uL High 4.8-10.8 Red Blood Count 4.36 10^6/uL 4.0-5.4 Hemoglobin 13.9 g/dL 12.0-16.0 Hematocrit 41 % 35-47 Mean Corpuscular Volume 93 fL 80-97 Mean Corpuscular Hemoglobin 32 pg High 27-31 Mean Corpuscular HGB Conc 34 g/dL 31-36 Red Cell Distribution Width 14 % 10.5-15 Platelet Count 279 10^3/uL 150-450 Mean Platelet Volume 8 um3 7.4-10.4 Abs Neutrophils 11.9 10^3/uL High 1.5-7.7 Abs Lymphocytes 0.1 10^3/uL Low 1.0-4.8 Abs Monocytes 0.1 10^3/uL 0-0.8 Abs Eosinophils 0 10^3/uL 0-0.6 Abs Basophils 0 10^3/uL 0-0.2 Abs Nucleated RBC 0.01 10^3/uL Granulocyte % 98.1 % High 38-83 Lymphocyte % 1.2 % Low 25-47 Monocyte % 0.5 % Low 1-9 Eosinophil % 0 % 0-6 Basophil % 0.2 % 0-2 Nucleated Red Blood Cells % 0.1 Laboratory test finding 12/30/2013 Lactic Acid 1.4 mmol/L 0.5-2.2 Comp Metabolic Panel 12/30/2013 Sodium 136 mmol/L 133-145 Potassium 4.1 mmol/L 3.7-5.6 Chloride 103 mmol/L 101-111 Co2 Carbon Dioxide 24 mmol/L 22-32 Anion Gap 9 mmol/L 2-11 Glucose 133 mg/dL High 70-100 Blood Urea Nitrogen 21 mg/dL 6-24 Creatinine 1.31 mg/dL High 0.51-0.95 BUN/Creatinine Ratio 16.0 8-20 Calcium 9.5 mg/dL 8.6-10.3 Total Protein 6.8 g/dL 6.4-8.9 Albumin 3.6 g/dL 3.2-5.2 Globulin 3.2 g/dL 2-4 Albumin/Globulin Ratio 1.1 1-3 Total Bilirubin 0.70 mg/dL 0.2-1.0 Alkaline Phosphatase 101 U/L 34-104 Alt 28 U/L 7-52 Ast 23 U/L 13-39 Egfr Non- 41.6 >60 Egfr 53.4 >60 46 Laboratory test finding 12/30/2013 Magnesium 1.8 mg/dL Low 1.9-2.7 CKMB 12/30/2013 CKMB ng/mL 1.0 ng/mL 0.6-6.3 Laboratory test finding 12/30/2013 Troponin I 0.01 ng/mL <0.03 47 Myoglobin 24.8 ng/mL 14.3-65.8 T4 6.21 g/dL 6.09-12.23 TSH (Thyroid Stimulating Horm) 1.55 IU/mL 0.34-5.60 Comp Metabolic Panel 08/28/2013 Sodium 139 mmol/L 133-145 Potassium 4.0 mmol/L 3.5-5.0 Chloride 103 mmol/L 101-111 Co2 Carbon Dioxide 29.0 mmol/L 22-32 Anion Gap 7.0 mmol/L 2-11 Glucose 80 mg/dL 70-100 Blood Urea Nitrogen 21 mg/dL 6-24 Creatinine 1.20 mg/dL 0.50-1.40 BUN/Creatinine Ratio 17.5 8-20 Calcium 9.5 mg/dL 8.1-9.9 Total Protein 5.8 g/dL Low 6.2-8.1 Albumin 3.8 g/dL 3.6-5.4 Globulin 2.0 g/dL 2-4 Albumin/Globulin Ratio 1.9 1-3 Total Bilirubin 0.7 mg/dL 0.4-1.5 Alkaline Phosphatase 97 U/L 30-110 Alt 22 U/L 14-54 Ast 20 U/L 12-42 Egfr Non- 46.0 >60 Egfr 59.1 >60 48 CBC Auto Diff 08/28/2013 White Blood Count 7.8 10^3/uL 4.8-10.8 Red Blood Count 4.67 10^6/uL 4.0-5.4 Hemoglobin 14.8 g/dL 12.0-16.0 Hematocrit 44 % 35-47 Mean Corpuscular Volume 94 fL 80-97 Mean Corpuscular Hemoglobin 32 pg High 27-31 Mean Corpuscular HGB Conc 34 g/dL 31-36 Red Cell Distribution Width 14 % 10.5-15 Platelet Count 270 10^3/uL 150-450 Mean Platelet Volume 9 um3 7.4-10.4 Abs Neutrophils 6.0 10^3/uL 1.5-7.7 Abs Lymphocytes 0.8 10^3/uL Low 1.0-4.8 Abs Monocytes 0.6 10^3/uL 0-0.8 Abs Eosinophils 0.2 10^3/uL 0-0.6 Abs Basophils 0.1 10^3/uL 0-0.2 Abs Nucleated RBC 0 10^3/uL Granulocyte % 77.4 % 38-83 Lymphocyte % 10.6 % Low 25-47 Monocyte % 8.1 % 1-9 Eosinophil % 2.9 % 0-6 Basophil % 1.0 % 0-2 Nucleated Red Blood Cells % 0 Laboratory test finding 08/28/2013 Cytology RUN DATE: <SEE NOTE> Laboratory test finding 07/31/2013 Affirm Vaginal Dna (SEE NOTE) 50 Probe Ua Routine 07/31/2013 Ua Specific [place] 1.005 Ua PH 5 Ua Color yellow Ua Appera clear Ua WBC trace Ua Protein neg Ua Glucose neg Ua Ketones neg Ua Bilirubin neg Ua Urobilinogen neg Ua Nitrite neg Ua Occult Blood neg Vitamin D, 25 Hydroxy 03/27/2013 25-Hydroxy Vitamin D2 <4.0 ng/mL 25-Hydroxy Vitamin D3 46 ng/mL 25-Hydroxy Vitamin D Total 46 ng/mL 51 Lipid Profile (Trig/Chol/HDL) 03/27/2013 Triglycerides 178 mg/dL 40-200 Cholesterol 187 mg/dL Less than 200 HDL Cholesterol 73 mg/dL High 40-60 52 Cholesterol/HDL Ratio 2.6 Average 1-4.44 LDL Cholesterol 78.4 Less Than 100 53 Urine Culture And Sensitivities 03/27/2013 Urine Culture (SEE NOTE) 54 Drug Abuse 20 Urine 03/27/2013 Urine Amphetamine Negative ng/mL 55 Urine Barbiturates Negative ng/mL 56 Urine Benzodiazepines Negative ng/mL 57 Urine Cocaine Negative ng/mL 58 Urine Methadone Negative ng/mL 59 Urine Opiates Negative ng/mL 60 Urine Phencyclidine Negative ng/mL Cutoff: 25 Urine Propoxyphene Negative ng/mL 61 Urine Tetrahydrocannabinol Negative ng/mL Cutoff: 20 62 Creatinine 98.9 mg/dL Specific [place] 1.014 pH 7.1 Oxidants Negative 63 Urine Opiates Screen Negative 64 Urine Codeine Confirmation Negative ng/mL 65 Urine Hydrocodone Confirm Negative ng/mL 66 Urine Hydromorphone Confirm Negative ng/mL 67 Urine Morphine Confirm Negative ng/mL 68 Urine Oxycodone Confirm Negative ng/mL 69 Urine Opiates Interpretation Negative. 70 Ua Routine 03/27/2013 Ua Specific [place] 1.010 Ua PH 5 Ua Color yellow Ua Appera clear Ua WBC trace Ua Protein neg Ua Glucose neg Ua Ketones neg Ua Bilirubin neg Ua Urobilinogen neg Ua Nitrite neg Ua Occult Blood neg Urinalysis W/Microscopic 11/28/2012 Urine Color Yellow Urine Appearance Cloudy Urine Specific [place] 1.027 1.010-1.030 Urine Esterase 3+ Negative Urine Nitrate Negative Negative Urine Urobilinogen Negative E.U./dL Negative Urine Protein Negative mg/dL Negative Urine pH 5.5 5-9 Urine Blood Negative Negative Urine Ketones Negative mg/dL Negative Urine Bilirubin Negative Negative Urine Glucose Negative mg/dL Negative Urine WBC 3+ (>30 /hpf) None Seen Urine RBC None Seen None Seen Urine Mucus Present /lpf Absent Urine Epithelial Cells 2+ Squamous /hpf None Seen Crystals Urine Calcium Oxalate /lpf None Seen Urine Culture And 11/28/2012 Urine Culture (SEE NOTE) 71 Sensitivities Urine Culture And 11/22/2012 Urine Culture (SEE NOTE) 72 Sensitivities Urine Microscopic 11/22/2012 Urine WBC 2+ (>10-30 /hpf) None Seen 73 Urine Mucus Present /lpf Absent Bacteria Urine 1+ None Seen Urinalysis 11/22/2012 Urine Color Yellow Urine Appearance Clear Urine Specific [place] 1.020 1.010-1.030 Urine Esterase 3+ Negative Urine Nitrate Negative Negative Urine Urobilinogen Negative E.U./dL Negative Urine Protein Negative mg/dL Negative Urine pH 5.5 5-9 Urine Blood Negative Negative Urine Ketones Negative mg/dL Negative Urine Bilirubin Negative Negative Urine Glucose Negative mg/dL Negative Ua Routine 09/18/2012 Ua Specific [place] 1.020 Ua PH 5 Ua Color clear Ua Appera clear Ua WBC negative Ua Protein negative Ua Glucose negative Ua Ketones negative Ua Bilirubin negative Ua Urobilinogen negative Ua Nitrite negative Ua Occult Blood negative Laboratory test finding 09/11/2012 Lactic Acid 1.4 mmol/L 0.5-1.6 CBC Auto Diff 09/11/2012 White Blood Count 11.2 10^3/uL High 4.8-10.8 Red Blood Count 4.07 10^6/uL 4.0-5.4 Hemoglobin 12.5 g/dL 12.0-16.0 Hematocrit 38 % 35-47 Mean Corpuscular Volume 92 fL 80-97 Mean Corpuscular Hemoglobin 31 pg 27-31 Mean Corpuscular HGB Conc 33 g/dL 31-36 Red Cell Distribution Width 14 % 10.5-15 Platelet Count 265 10^3/uL 150-450 Mean Platelet Volume 8 um3 7.4-10.4 Abs Neutrophils 10.8 10^3/uL High 1.5-7.7 Abs Lymphocytes 0.2 10^3/uL Low 1.0-4.8 Abs Monocytes 0.1 10^3/uL 0-0.8 Abs Eosinophils 0.1 10^3/uL 0-0.6 Abs Basophils 0.1 10^3/uL 0-0.2 Abs Nucleated RBC 0 10^3/uL Granulocyte % 96.5 % High 38-83 Lymphocyte % 1.5 % Low 25-47 Monocyte % 0.4 % Low 1-9 Eosinophil % 1.1 % 0-6 Basophil % 0.5 % 0-2 Nucleated Red Blood Cells % 0 Laboratory test finding 09/11/2012 B Type Natriuretic Peptide 43.0 pg/mL 0-100 Comp Metabolic Panel 09/11/2012 Sodium 140 mmol/L 133-145 Potassium 3.4 mmol/L Low 3.5-5.0 Chloride 107 mmol/L 101-111 Co2 Carbon Dioxide 24.0 mmol/L 22-32 Anion Gap 9.0 mmol/L 2-11 Glucose 103 mg/dL High 70-100 Blood Urea Nitrogen 19 mg/dL 6-24 Creatinine 1.10 mg/dL 0.50-1.40 BUN/Creatinine Ratio 17.3 8-20 Calcium 8.9 mg/dL 8.1-9.9 Total Protein 6.1 g/dL Low 6.2-8.1 Albumin 3.2 g/dL Low 3.6-5.4 Globulin 2.9 g/dL 2-4 Albumin/Globulin Ratio 1.1 1-3 Total Bilirubin 0.9 mg/dL 0.4-1.5 Alkaline Phosphatase 103 U/L 30-110 Alt 21 U/L 14-54 Ast 31 U/L 12-42 Egfr Non- 51.0 >60 Egfr 65.6 >60 74 Urine Microscopic 09/11/2012 Urine WBC 3+ (>10 /hpf) None Seen Urine RBC 3+ (>10 /hpf) None Seen Bacteria Urine 1+ None Seen Urinalysis 09/11/2012 Urine Color Yellow Urine Appearance Clear Urine Specific [place] 1.022 1.010-1.030 Urine Esterase 3+ Negative Urine Nitrate Negative Negative Urine Urobilinogen Negative E.U./dL Negative Urine Protein Negative mg/dL Negative Urine pH 6.5 5-9 Urine Blood 2+ Negative Urine Ketones Negative mg/dL Negative Urine Bilirubin Negative Negative Urine Glucose Negative mg/dL Negative Laboratory test finding 09/11/2012 Lipase 20 U/L Low 22-51 75 Creatine Kinase 43 U/L 0-200 76 CKMB 0.8 ng/mL 0.3-4.0 77 Troponin I 0 ng/mL 0-0.06 78 Comp Metabolic Panel 08/22/2012 Sodium 140 mmol/L 133-145 Chloride 112 mmol/L High 101-111 Co2 Carbon Dioxide 24.0 mmol/L 22-32 Anion Gap 4.0 mmol/L 2-11 Glucose 81 mg/dL 70-100 Blood Urea Nitrogen 17 mg/dL 6-24 Creatinine 1.00 mg/dL 0.50-1.40 BUN/Creatinine Ratio 17.0 8-20 Calcium 9.2 mg/dL 8.1-9.9 Total Protein 6.7 g/dL 6.2-8.1 Albumin 3.9 g/dL 3.6-5.4 Globulin 2.8 g/dL 2-4 Albumin/Globulin Ratio 1.4 1-3 Total Bilirubin 0.7 mg/dL 0.4-1.5 Alkaline Phosphatase 110 U/L 30-110 Alt 16 U/L 14-54 Ast 18 U/L 12-42 Egfr Non- 56.9 >60 Egfr 73.2 >60 79 Laboratory test 08/22/2012 Potassium 4.0 mmol/L 3.5-5.0 finding Cytology 08/22/2012 Cy RUN DATE: <SEE NOTE> Vitamin D, 25 Hydroxy 08/22/2012 25-Hydroxy Vitamin D2 <4.0 ng/mL 25-Hydroxy Vitamin D3 40 ng/mL 25-Hydroxy Vitamin D Total 40 ng/mL 81 Laboratory test finding 08/08/2012 Potassium 3.9 mmol/L 3.5-5.0 Laboratory test finding 08/08/2012 O P: Giardia/Cryptospor (SEE NOTE) 82 Screen C. difficile Amplified Dna (SEE NOTE) 83 Stool Culture (SEE NOTE) 84 Urine Culture And 08/03/2012 Urine Culture (SEE NOTE) 85 Sensitivities Fecal Lactoferrin 08/03/2012 Fecal Lactoferrin (SEE NOTE) 86 (Stool WBC) (Stool WBC) Urine Microscopic 08/03/2012 Urine WBC 2+ (>10-30 None Seen 87 /hpf) Urine RBC None Seen None Seen Urine Epithelial Cells 1+ Squamous /hpf None Seen Crystals Urine Calcium Oxalate /lpf None Seen Urinalysis 08/03/2012 Urine Color Yellow Urine Appearance Clear Urine Specific [place] 1.026 1.010-1.030 Urine Esterase 2+ Negative Urine Nitrate Negative Negative Urine Urobilinogen Negative E.U./dL Negative Urine Protein Negative mg/dL Negative Urine pH 5.0 5-9 Urine Blood Negative Negative Urine Ketones Trace mg/dL Negative Urine Bilirubin 1+ Negative 88 Urine Glucose Negative mg/dL Negative Manual Differential 08/03/2012 Neutrophil % 80.0 % 38-83 Band % 0 % 0-8 Lymphocytes % 10.0 % Low 25-47 Monocytes % 1.0 % 0-13 Eosinophils % 6.0 % 0-6 Basophil % 0 % 0-2 Reactive Lymph % 3.0 % 0-6 Metamyelocytes % 0 % 0-2 Myelocytes % 0 % 0-1 Promyelocytes % 0 % Blast % 0 % RBC Morphology Normal Normal CBC Auto Diff 08/03/2012 White Blood Count 7.9 10^3/uL 4.8-10.8 Red Blood Count 4.64 10^6/uL 4.0-5.4 Hemoglobin 14.5 g/dL 12.0-16.0 Hematocrit 43 % 35-47 Mean Corpuscular Volume 94 fL 80-97 Mean Corpuscular Hemoglobin 31 pg 27-31 Mean Corpuscular HGB Conc 34 g/dL 31-36 Red Cell Distribution Width 14 % 10.5-15 Platelet Count 272 10^3/uL 150-450 Mean Platelet Volume 8 um3 7.4-10.4 Abs Neutrophils 6.0 10^3/uL 1.5-7.7 Abs Lymphocytes 0.8 10^3/uL Low 1.0-4.8 Abs Monocytes 0.6 10^3/uL 0-0.8 Abs Eosinophils 0.3 10^3/uL 0-0.6 Abs Basophils 0.2 10^3/uL 0-0.2 Abs Nucleated RBC 0 10^3/uL Comp Metabolic Panel 08/03/2012 Sodium 139 mmol/L 133-145 Potassium 3.3 mmol/L Low 3.5-5.0 Chloride 112 mmol/L High 101-111 Co2 Carbon Dioxide 21.0 mmol/L Low 22-32 Anion Gap 6.0 mmol/L 2-11 Glucose 87 mg/dL 70-100 Blood Urea Nitrogen 15 mg/dL 6-24 Creatinine 1.00 mg/dL 0.50-1.40 BUN/Creatinine Ratio 15.0 8-20 Calcium 9.7 mg/dL 8.1-9.9 Total Protein 6.3 g/dL 6.2-8.1 Albumin 3.7 g/dL 3.6-5.4 Globulin 2.6 g/dL 2-4 Albumin/Globulin Ratio 1.4 1-3 Total Bilirubin 1.2 mg/dL 0.4-1.5 Alkaline Phosphatase 105 U/L 30-110 Alt 17 U/L 14-54 Ast 18 U/L 12-42 Egfr Non- 57.1 >60 Egfr 73.5 >60 89 Laboratory test finding 08/03/2012 Lipase 21 U/L Low 22-51 C Reactive Protein 0.5 mg/dL Less than 0.5 Manual Differential 05/16/2012 Neutrophil % 78.0 % 38-83 Band % 0 % 0-8 Lymphocytes % 10.0 % Low 25-47 Monocytes % 2.0 % 0-13 Eosinophils % 8.0 % High 0-6 Basophil % 1.0 % 0-2 Reactive Lymph % 1.0 % 0-6 Metamyelocytes % 0 % 0-2 Myelocytes % 0 % 0-1 Promyelocytes % 0 % Blast % 0 % RBC Morphology Normal Normal CBC Auto Diff 05/16/2012 White Blood Count 7.6 10^3/uL 4.8-10.8 Red Blood Count 4.42 10^6/uL 4.0-5.4 Hemoglobin 14.0 g/dL 12.0-16.0 Hematocrit 42 % 35-47 Mean Corpuscular Volume 95 fL 80-97 Mean Corpuscular Hemoglobin 32 pg High 27-31 Mean Corpuscular HGB Conc 34 g/dL 31-36 Red Cell Distribution Width 14 % 10.5-15 Platelet Count 299 10^3/uL 150-450 Mean Platelet Volume 8 um3 7.4-10.4 Abs Neutrophils 4.8 10^3/uL 1.5-7.7 Abs Lymphocytes 1.2 10^3/uL 1.0-4.8 Abs Monocytes 0.6 10^3/uL 0-0.8 Abs Eosinophils 0.9 10^3/uL High 0-0.6 Abs Basophils 0.1 10^3/uL 0-0.2 Abs Nucleated RBC 0 10^3/uL CBC Auto Diff 05/14/2012 White Blood Count 9.2 10^3/uL 4.8-10.8 Red Blood Count 4.30 10^6/uL 4.0-5.4 Hemoglobin 13.8 g/dL 12.0-16.0 Hematocrit 40.8 % 35-47 Mean Corpuscular Volume 95 fL 80-97 Mean Corpuscular Hemoglobin 32 pg High 27-31 Mean Corpuscular HGB Conc 34 g/dL 31-36 Red Cell Distribution Width 14 % 10.5-15 Platelet Count 270 10^3/uL 150-450 Mean Platelet Volume 8 um3 7.4-10.4 Abs Neutrophils 6.3 10^3/uL 1.5-7.7 Abs Lymphocytes 1.4 10^3/uL 1.0-4.8 Abs Monocytes 0.6 10^3/uL 0-0.8 Abs Eosinophils 0.9 10^3/uL High 0-0.6 Abs Basophils 0.1 10^3/uL 0-0.2 Abs Nucleated RBC 0 10^3/uL Granulocyte % 67.6 % 38-83 Lymphocyte % 14.9 % Low 25-47 Monocyte % 6.9 % 1-9 Eosinophil % 9.6 % High 0-6 Basophil % 1.0 % 0-2 Nucleated Red Blood Cells % 0 CBC Auto Diff 05/12/2012 White Blood Count 7.6 10^3/uL 4.8-10.8 Red Blood Count 4.10 10^6/uL 4.0-5.4 Hemoglobin 13.0 g/dL 12.0-16.0 Hematocrit 39.2 % 35-47 Mean Corpuscular Volume 96 fL 80-97 Mean Corpuscular Hemoglobin 32 pg High 27-31 Mean Corpuscular HGB Conc 33 g/dL 31-36 Red Cell Distribution Width 14 % 10.5-15 Platelet Count 252 10^3/uL 150-450 Mean Platelet Volume 8 um3 7.4-10.4 Abs Neutrophils 5.2 10^3/uL 1.5-7.7 Abs Lymphocytes 0.9 10^3/uL Low 1.0-4.8 Abs Monocytes 0.5 10^3/uL 0-0.8 Abs Eosinophils 0.7 10^3/uL High 0-0.6 Abs Basophils 0.2 10^3/uL 0-0.2 Abs Nucleated RBC 0 10^3/uL Granulocyte % 68.9 % 38-83 Lymphocyte % 12.1 % Low 25-47 Monocyte % 7.2 % 1-9 Eosinophil % 9.2 % High 0-6 Basophil % 2.6 % High 0-2 Nucleated Red Blood Cells % 0 Comp Metabolic Panel 04/26/2012 Sodium 140 mmol/L 135-145 Potassium 4.2 mmol/L 3.5-5.0 Chloride 109 mmol/L 101-111 Co2 (Carbon Dioxide) 23.0 mmol/L 22-32 Anion Gap 8.0 mmol/L 2-11 90 Glucose 85 mg/dL 70-100 BUN 29 mg/dL High 6-24 Creatinine 1.0 mg/dL 0.50-1.40 One Over Creatinine 1.00 BUN/Creatinine Ratio 29.0 High 8-20 Calcium 9.2 mg/dL 8.1-9.9 Total Protein 6.2 GM/DL 6.2-8.1 Albumin 3.5 GM/DL Low 3.6-5.4 Globulin 2.7 GM/DL 2-4 Albumin/Globulin Ratio 1.3 1-3 Bilirubin Total 0.8 mg/dL 0.4-1.5 91 Alkaline Phosphatase 123 U/L High 30-110 Alt (SGPT) 19 U/L 14-54 Ast (Sgot) 19 U/L 12-42 eGFR Non- 57.1 > 60 eGFR 73.5 > 60 92 Laboratory test finding 04/26/2012 CPK (Creatine Kinase) 60 U/L 0-170 CBC Auto Diff 04/26/2012 White Blood Count 11.0 CUMM High 4.8-10.8 Red Cell Count 4.21 CUMM 4.2-5.4 Hemoglobin 13.7 g/dL 12.0-16.0 Hematocrit 41 % 35-47 Mean Corpuscular Volume 96 um3 79-97 Mean Corpuscular Hemoglob 33 pg High 27-31 Mean Corpuscular HGB Cone 34 g/dL 32-36 Redcell Distribution WDTH 14 % 10.5-15 Platelet Count 247 CUMM 150-450 Mean Platelet Volume 7.7 um3 7.4-10.4 Gran % 80.3 % 38-83 Lymph % 8.1 % Low 20-45 Mononuclear % 6.7 % 1-9 Eosinophil % 4.2 % 0-6 Basophil % 0.7 % 0-2 Abs Lymphs 0.9 Low 1.0-4.8 Abs Mononuclear 0.7 0-0.8 Absolute Neutrophil Count 8.8 High 1.5-7.7 Abs Eosinophils 0.5 0-0.6 Abs Basophils 0.1 0-0.2 Laboratory test finding 04/26/2012 Erythrocyte Sed Rate 26 MM/HR 0-30 CBC No Diff 04/08/2012 White Blood Count 7.9 CUMM 4.8-10.8 Red Cell Count 4.37 CUMM 4.2-5.4 Hemoglobin 14.5 g/dL 12.0-16.0 Hematocrit 42 % 35-47 Mean Corpuscular Volume 96 um3 79-97 Mean Corpuscular Hemoglob 33 pg High 27-31 Mean Corpuscular HGB Cone 35 g/dL 32-36 Redcell Distribution WDTH 14 % 10.5-15 Platelet Count 285 CUMM 150-450 Mean Platelet Volume 8.2 um3 7.4-10.4 Liver Function Panel 04/08/2012 Total Protein 6.4 GM/DL 6.2-8.1 Albumin 3.7 GM/DL 3.6-5.4 Globulin 2.7 GM/DL 2-4 Albumin/Globulin Ratio 1.4 1-3 Bilirubin Total 0.9 mg/dL 0.4-1.5 93 Bilirubin Direct 0.1 mg/dL 0.1-0.5 Indirect Bilirubin 0.8 mg/dL 0.3-1.0 94 Alkaline Phosphatase 97 U/L 30-110 Alt (SGPT) 29 U/L 14-54 Ast (Sgot) 27 U/L 12-42 Laboratory test finding 04/08/2012 GGTP 21 U/L 7-50 Alkaline Phosphatase 04/08/2012 Alkaline Phosphatase,S 109 U/L 46 - 118 95 Isoenzyme Liver 1% 57.2 % 27.8-76.3 Liver 1 62.3 IU/L 16.2-70.2 Liver 2% 5.8 % 0.0-8.0 Liver 2 6.3 IU/L 0.0-5.8 Bone % 36.3 % 19.1-67.7 Bone 39.6 IU/L 12.1-42.7 Intestine % 0.7 % 0.0-20.6 Intestine 0.8 IU/L 0.0-11.0 Placental NotPresent () 96 Lipid Profile (Trig/Chol/HDL) 04/08/2012 Triglyceride 183 mg/dL 40-200 Cholesterol 193 mg/dL Less Than 200 97 High Density Lipoprotein 67 mg/dL High 40-60 98 Cholesterol/HDL Ratio 2.88 AVERAGE 1-4.44 Low Density Lipoprotein 89 mg/dL Less Than 100 99 CBC Auto Diff 01/18/2012 White Blood Count 8.2 CUMM 4.8-10.8 Red Cell Count 4.56 CUMM 4.2-5.4 Hemoglobin 14.9 g/dL 12.0-16.0 Hematocrit 44 % 35-47 Mean Corpuscular Volume 96 um3 79-97 Mean Corpuscular Hemoglob 33 pg High 27-31 Mean Corpuscular HGB Cone 34 g/dL 32-36 Redcell Distribution WDTH 15 % 10.5-15 Platelet Count 268 CUMM 150-450 Mean Platelet Volume 8.2 um3 7.4-10.4 Absolute Neutrophil Count 6.1 1.5-7.7 100 Laboratory test finding 01/18/2012 PTT (Aptt) 23.1 SEC Low 25.1-38.5 Protime 01/18/2012 Inr 0.79 Low 0.88-1.13 101 Protime 9.3 SEC Low 10.3-13.5 102 Manual Differential 01/18/2012 Polysegmented Neutrophil 75 % 38-83 Lymphocyte 15 % Low 25-47 Monocyte 9 % 0-13 Eosinophil 1 % 0-6 RBC Morphology NORMAL Laboratory test finding 11/30/2011 Mitochondrial AB, AMA-M2 Igg <0.1 U ( ) 103 GGTP 21 U/L 7-50 Alkaline Phosphatase 11/05/2011 Alkaline Phosphatase,S 197 U/L 46 - 118 104 Isoenzyme Liver 1% 28.5 % 27.8-76.3 Liver 1 56.1 IU/L 16.2-70.2 Liver 2% 10.8 % 0.0-8.0 Liver 2 21.3 IU/L 0.0-5.8 Bone % 54.7 % 19.1-67.7 Bone 107.8 IU/L 12.1-42.7 Intestine % 6.0 % 0.0-20.6 Intestine 11.8 IU/L 0.0-11.0 Placental NotPresent () 105 Comp Metabolic Panel 11/05/2011 Sodium 141 mmol/L 135-145 Potassium 4.0 mmol/L 3.5-5.0 Chloride 109 mmol/L 101-111 Co2 (Carbon Dioxide) 28.0 mmol/L 22-32 Anion Gap 4.0 mmol/L 2-11 106 Glucose 77 mg/dL 70-100 BUN 17 mg/dL 6-24 Creatinine 1.0 mg/dL 0.50-1.40 One Over Creatinine 1.00 BUN/Creatinine Ratio 17.0 8-20 Calcium 9.0 mg/dL 8.1-9.9 Total Protein 6.1 GM/DL Low 6.2-8.1 Albumin 3.8 GM/DL 3.6-5.4 Globulin 2.3 GM/DL 2-4 Albumin/Globulin Ratio 1.7 1-3 Bilirubin Total 0.7 mg/dL 0.4-1.5 107 Alkaline Phosphatase 186 U/L High 30-110 Alt (SGPT) 17 U/L 14-54 Ast (Sgot) 17 U/L 12-42 eGFR Non- 57.1 > 60 eGFR 73.5 > 60 108 Lipid Profile (Trig/Chol/HDL) 11/05/2011 Triglyceride 138 mg/dL 40-200 Cholesterol 175 mg/dL Less Than 200 109 High Density Lipoprotein 92 mg/dL High 40-60 110 Cholesterol/HDL Ratio 1.90 AVERAGE 1-4.44 Low Density Lipoprotein 55 mg/dL Less Than 100 111 Protein Electrophoresis 24HR 06/30/2011 Urine Pattern (SEE NOTE) 112, 113 U Suggests: Total Protein Random Urine 2 mg/dL 112 Urine Total Protein/24HR 35 MG/24HR Low 50-100 112 Hours Of Collection 24 HR 24- 112 Urine Volume Measurement 1750 ML 112 Protein Electrophoresis Serum 06/29/2011 Albumin 3.60 GM/DL 3.0-4.35 Alpha 1 0.19 GM/DL 0.09-0.33 Alpha 2 1.21 GM/DL High 0.59-1.18 Beta 1.16 GM/DL High 0.68-1.02 Gamma 0.85 GM/DL 0.76-1.60 Albumin % 51.4 % 46-63 Alpha 1 % 2.7 % 1.2-5.3 Alpha 2 % 17.3 % High 9-17 Beta % 16.6 % High 10-16 Gamma % 12.1 % 12-22 A/G Ratio 1.1 0.9-2 Total Protein 7.0 GM/DL 6.2-8.1 Spep Comments (SEE NOTE) 114 PTH Intact, Inc Total Calcium 06/29/2011 PTH Intact 5.6 PMOL/L 1.3-9.3 Calcium For Pthi 10.0 mg/dL High 8.1-9.9 115 Laboratory test finding 06/15/2011 TSH 2.08 MIU/ML 0.34-5.60 Thyroxine Free 0.64 ng/dL 0.61-1.24 Lipid Profile (Trig/Chol/HDL) 06/15/2011 Triglyceride 234 mg/dL High 40- 200 Cholesterol 331 mg/dL High Less Than 200 116 High Density Lipoprotein 83 mg/dL High 40-60 117 Cholesterol/HDL Ratio 3.99 AVERAGE 1-4.44 Low Density Lipoprotein 201 mg/dL High Less Than 100 118 Urinalysis W/Microscopic 06/15/2011 Ua Color YELLOW Yellow Appearance-Urine CLEAR Clear Specific [place]-Ur 1.020 1.010-1.030 Esterase-Urine 2+ Negative Nitrite NEGATIVE Negative [id number] NEGATIVE Negative Protein-Urine NEGATIVE Negative PH-Urine 6.0 5-9 Blood-Urine NEGATIVE Negative Ketones-Urine NEGATIVE Negative Bilirubin-Ur NEGATIVE Negative Glucose-Urine NEGATIVE Negative WBC-Urine 10-20 0-5 RBC-Urine NONE SEEN 0-2 Epith Cells-Ur MODERATE None Bacteria-Urine 1+ None Urine Culture & Sensitivi 06/15/2011 Urine Culture Sensitivi NF1 119 CBC Auto Diff 06/15/2011 White Blood Count 9.4 CUMM 4.8-10.8 Red Cell Count 4.67 CUMM 4.2-5.4 Hemoglobin 15.0 g/dL 12.0-16.0 Hematocrit 44 % 35-47 Mean Corpuscular Volume 95 um3 79-97 Mean Corpuscular Hemoglob 32 pg High 27-31 Mean Corpuscular HGB Cone 34 g/dL 32-36 Redcell Distribution WDTH 15 % 10.5-15 Platelet Count 287 CUMM 150-450 Mean Platelet Volume 8.3 um3 7.4-10.4 120 Vitamin D, 25 Hydroxy 06/15/2011 25-Hydroxy Vitamin D2 <4.0 ng/mL () 25-Hydroxy Vitamin D3 34 ng/mL () 25-Hydroxy Vitamin D Total 34 ng/mL () 121 Manual Differential 06/15/2011 Polysegmented Neutrophil 75 % 38-83 Band Neutrophil 3 % 0-8 Lymphocyte 17 % Low 25-47 Monocyte 1 % 0-13 Eosinophil 3 % 0-6 Basophil 1 % 0-2 Absolute Neutrophil Count 7.3 RBC Morphology NORMAL Comp Metabolic Panel 06/15/2011 Sodium 142 mmol/L 135-145 Potassium 4.4 mmol/L 3.5-5.0 Chloride 104 mmol/L 101-111 Co2 (Carbon Dioxide) 31.0 mmol/L 22-32 Anion Gap 7.0 mmol/L 2-11 122 Glucose 85 mg/dL 70-100 BUN 18 mg/dL 6-24 Creatinine 1.1 mg/dL 0.50-1.40 One Over Creatinine 0.90 BUN/Creatinine Ratio 16.4 8-20 Calcium 10.0 mg/dL High 8.1-9.9 Total Protein 6.8 GM/DL 6.2-8.1 Albumin 4.0 GM/DL 3.6-5.4 Globulin 2.8 GM/DL 2-4 Albumin/Globulin Ratio 1.4 1-3 Bilirubin Total 1.1 mg/dL 0.4-1.5 123 Alkaline Phosphatase 98 U/L 30-110 Alt (SGPT) 21 U/L 14-54 Ast (Sgot) 26 U/L 12-42 eGFR Non- 51.4 > 60 eGFR 66.1 > 60 124 1 Desirable: <150 Borderline High: 150-199 High: 200-499 Very High: >500 2 Desirable: <200 Borderline High: 200-239 High: >239 3 Low: <40 Desirable: 40-60 High: >60 4 Desirable: <100 Near Optimal: 100-129 Borderline High: 130-159 High: 160-189 Very High: >189 5 Because ethnic data is not always readily available, this report includes an eGFR for both -Americans and non- Americans. The National Kidney Disease Education Program (NKDEP) does not endorse the use of the MDRD equation for patients that are not between the ages of 18 and 70, are , have extremes of body size, muscle mass, or nutritional status, or are non- or non-. According to the [employer], irrespective of diagnosis, the stage of the disease is based on the level of kidney function: Stage Description GFR(mL/min/1.73 m(2)) 1 Kidney damage with normal or decreased GFR 90 2 Kidney damage with mild decrease in GFR 60-89 3 Moderate decrease in GFR 30-59 4 Severe decrease in GFR 15-29 5 Kidney failure <15 (or dialysis) 6 Because ethnic data is not always readily available, this report includes an eGFR for both -Americans and non- Americans. The National Kidney Disease Education Program (NKDEP) does not endorse the use of the MDRD equation for patients that are not between the ages of 18 and 70, are , have extremes of body size, muscle mass, or nutritional status, or are non- or non-. According to the [employer], irrespective of diagnosis, the stage of the disease is based on the level of kidney function: Stage Description GFR(mL/min/1.73 m(2)) 1 Kidney damage with normal or decreased GFR 90 2 Kidney damage with mild decrease in GFR 60-89 3 Moderate decrease in GFR 30-59 4 Severe decrease in GFR 15-29 5 Kidney failure <15 (or dialysis) 7 FASTING 12 HOUR 8 Because ethnic data is not always readily available, this report includes an eGFR for both -Americans and non- Americans. The National Kidney Disease Education Program (NKDEP) does not endorse the use of the MDRD equation for patients that are not between the ages of 18 and 70, are , have extremes of body size, muscle mass, or nutritional status, or are non- or non-. According to the [employer], irrespective of diagnosis, the stage of the disease is based on the level of kidney function: Stage Description GFR(mL/min/1.73 m(2)) 1 Kidney damage with normal or decreased GFR 90 2 Kidney damage with mild decrease in GFR 60-89 3 Moderate decrease in GFR 30-59 4 Severe decrease in GFR 15-29 5 Kidney failure <15 (or dialysis) 9 Desirable <150 Borderline high 150-199 High 200-499 Very High >500 10 Desirable <200 Borderline high 200-239 High >239 11 Low <40 Desirable: 40-60 High: >60 12 Desirable: <100 mg/dL Near Optimal: 100-129 mg/dL Borderline High: 130-159 mg/dL High: 160-189 mg/dL Very High: >189 mg/dL 13 SEE RESULT BELOW Name: JAY COATES E : [address]: Víctor Miner III, MD Acct: [id number] Unit: [id number] AGE: 60 Location: [facility] Re06/04/16 SEX: F Status: REG REF SPEC: [id number] MIGUEL: 06/04/16-3 [facility] DR: Víctor Miner III, MD REQ: [id number] RECD: 06/04/16 STATUS: COMP _ SOURCE: URINE SPDESC: ORDERED: Urine Culture COMMENTS: [id number] Procedure Result Reported Site Urine Culture Final 06/06/16- 08 ML Organism 1 PROTEUS MIRABILIS [place] Count >100,000 (Many) CFU/ML 1. PROTEUS MIRABILIS M.I.C. RX --------- ------ Ampicillin <=2 S Cefazolin <=4 S Cefepime <=1 S Ceftriaxone <=1 S Ciprofloxacin <=0.25 S Gentamicin <=1 S Levofloxacin <=0.12 S Meropenem <=0.25 S Nitrofurantoin 128 R Tetracycline >=16 R Pipercillin/Tazobactam <=4 S Trimethoprim/Sulfamethoxazole <=20 S Amoxicillin/Clavulanic Acid 4 S Aztreonam <=1 S Contact the Microbiology Department for any additional antibiotic reporting. * ML - MAIN LAB ([facility]) . END OF REPORT * ML=Testing performed at Main Lab DEPARTMENT OF PATHOLOGY, [address] [place] [address] Eh Ronoey M.D. Director [facility] # [id number] 14 Nasopharyngeal swab 15 REFERENCE VALUE Not Applicable 16 REFERENCE VALUE Not Applicable ADDITIONAL INFORMATION Laboratory developed test. Test Performed by: [facility] - [address] [address] Technical Project Manager: Sami Singh II, M.D., Ph.D. 17 Collected from 07/22/15321 through 07/23/15321. 18 Because ethnic data is not always readily available, this report includes an eGFR for both -Americans and non- Americans. The National Kidney Disease Education Program (NKDEP) does not endorse the use of the MDRD equation for patients that are not between the ages of 18 and 70, are , have extremes of body size, muscle mass, or nutritional status, or are non- or non-. According to the National Kidney Foundation, irrespective of diagnosis, the stage of the disease is based on the level of kidney function: Stage Description GFR(mL/min/1.73 m(2)) 1 Kidney damage with normal or decreased GFR 90 2 Kidney damage with mild decrease in GFR 60-89 3 Moderate decrease in GFR 30-59 4 Severe decrease in GFR 15-29 5 Kidney failure <15 (or dialysis) 19 Desirable <150 Borderline high 150-199 High 200-499 Very High >500 20 Desirable <200 Borderline high 200-239 High >239 21 Low <40 Desirable: 40-60 High: >60 22 Desirable: <100 mg/dL Near Optimal: 100-129 mg/dL Borderline High: 130-159 mg/dL High: 160-189 mg/dL Very High: >189 mg/dL 23 Because ethnic data is not always readily available, this report includes an eGFR for both -Americans and non- Americans. The National Kidney Disease Education Program (NKDEP) does not endorse the use of the MDRD equation for patients that are not between the ages of 18 and 70, are , have extremes of body size, muscle mass, or nutritional status, or are non- or non-. According to the National Kidney Foundation, irrespective of diagnosis, the stage of the disease is based on the level of kidney function: Stage Description GFR(mL/min/1.73 m(2)) 1 Kidney damage with normal or decreased GFR 90 2 Kidney damage with mild decrease in GFR 60-89 3 Moderate decrease in GFR 30-59 4 Severe decrease in GFR 15-29 5 Kidney failure <15 (or dialysis) 24 RUN DATE: 09/20/14 [facility] LAB LIVE PAGE 1 RUN TIME: [address] [place] [address] Specimen Inquiry Name: JAY COATES : [address]: Ankita Clements MD Acct: [id number] Unit: [id number] AGE: 59 Location: [facility] Re09/17/14 SEX: F Status: REG REF SPEC: [id number] MIGUEL: 09/17/14-1213 [facility] DR: Ankita Clements MD REQ: [id number] RECD: 09/17/14 STATUS: SOUT _ ORDERED: IMAGE ANALYSIS, HPV/Thin Prep FINAL DIAGNOSIS Negative for Intraepithelial lesion or Malignancy A. Ectocervical/Endocervical Specimen Adequacy: Satisfactory of evaluation Transformation zone component identified Patient Information: HPV: High risk HPV RNA testing regardless of pap results. Actual Specimen Date: 09/17/14 ?: N Hysterectomy?: N Date Time Test Result Flag (u) Normal Range 09/17/14 1213 HPV RNA Negative Negative The high-risk HPV types detected by the assay include: 16, 18, 31, 33, 35, 39, 45, 51, 52, 56, 58, 59, 66, and 68. Signed (signature on file) KAROLINA Steinberg(ASCP) 1312 This Pap test was evaluated with the assistance of the QooplPrep Test Imaging System. Due to cytologic findings at the communications administrator microscope, comprehensive manual rescreening by a Hogshead Wrecker may be required. The Pap Smear is a screening test designed to aid in the detection of premalignant and malignant conditions of the uterine cervix. It is not a diagnostic procedure and should not be used as the sole means of detecting cervical cancer. Both false- positive and false- negative reports do occur. Depending on your risk status, a Pap smear should be obtained and evaluated every 1-3 years. END OF REPORT * ML=Testing performed at Main Lab DEPARTMENT OF PATHOLOGY, [address] [place] [address] Eh Rooney M.D. Director [facility] # [id number] 25 The high-risk HPV types detected by the assay include: 16, 18, 31, 33, 35, 39, 45, 51, 52, 56, 58, 59, 66, and 68. 26 Because ethnic data is not always readily available, this report includes an eGFR for both -Americans and non- Americans. The National Kidney Disease Education Program (NKDEP) does not endorse the use of the MDRD equation for patients that are not between the ages of 18 and 70, are , have extremes of body size, muscle mass, or nutritional status, or are non- or non-. According to the National Kidney Foundation, irrespective of diagnosis, the stage of the disease is based on the level of kidney function: Stage Description GFR(mL/min/1.73 m(2)) 1 Kidney damage with normal or decreased GFR 90 2 Kidney damage with mild decrease in GFR 60-89 3 Moderate decrease in GFR 30-59 4 Severe decrease in GFR 15-29 5 Kidney failure <15 (or dialysis) 27 Because ethnic data is not always readily available, this report includes an eGFR for both -Americans and non- Americans. The National Kidney Disease Education Program (NKDEP) does not endorse the use of the MDRD equation for patients that are not between the ages of 18 and 70, are , have extremes of body size, muscle mass, or nutritional status, or are non- or non-. According to the National Kidney Foundation, irrespective of diagnosis, the stage of the disease is based on the level of kidney function: Stage Description GFR(mL/min/1.73 m(2)) 1 Kidney damage with normal or decreased GFR 90 2 Kidney damage with mild decrease in GFR 60-89 3 Moderate decrease in GFR 30-59 4 Severe decrease in GFR 15-29 5 Kidney failure <15 (or dialysis) 28 FASTING 29 Desirable <150 Borderline high 150-199 High 200-499 Very High >500 30 Desirable <200 Borderline high 200-239 High >239 31 Low <40 Desirable: 40-60 High: >60 32 Desirable <100 Near Optimal 100-129 Borderline high 130-159 High 160-189 Very High >189 33 FASTING 34 FASTING 35 Test Performed by: [facility] - [address] [address] Technical Project Manager: Tito Bryan M.D. 36 RUN DATE: 03/22/14 [facility] LAB LIVE PAGE 1 RUN TIME: [address] [place], [place] [address] Specimen Inquiry Name: JAY COATES : [address]: Nicanor Valencia Acct: [id number] Unit: [id number] AGE: 58 Location: ED Re03/20/14 SEX: F Status: DEP ER SPEC: [id number] MIGUEL: 03/20/14-1299 [facility] DR: Nicanor Gonsales DO REQ: [id number] RECD: 03/20/14 STATUS: SRI SANDS DR: Ankita Clements MD _ SOURCE: URINE SPDESC: ORDERED: Urine Culture Procedure Result Verified Site Urine Culture Final 03/22/14- 1118 ML Organism 1 NORMAL MARTY [place] Count 25-50,000 (Moderate) CFU/ML END OF REPORT * ML=Testing performed at Main Lab DEPARTMENT OF PATHOLOGY, [address] [place] [address] Eh Rooney M.D. Director [facility] # [id number] 37 FASTING 10 HOUR 38 Desirable <150 Borderline high 150-199 High 200-499 Very High >500 39 Desirable <200 Borderline high 200-239 High >239 40 Low <40 Desirable: 40-60 High: >60 41 Desirable <100 Near Optimal 100-129 Borderline high 130-159 High 160-189 Very High >189 42 Collected from 01/21/14 0507 through 01/22/14 0500. 43 -- REFERENCE VALUE -- Not present Test Performed by: [address] [address] Technical Project Manager: Justin Baker III, M.D. 44 Because ethnic data is not always readily available, this report includes an eGFR for both -Americans and non- Americans. The National Kidney Disease Education Program (NKDEP) does not endorse the use of the MDRD equation for patients that are not between the ages of 18 and 70, are , have extremes of body size, muscle mass, or nutritional status, or are non- or non-. According to the National Kidney Foundation, irrespective of diagnosis, the stage of the disease is based on the level of kidney function: Stage Description GFR(mL/min/1.73 m(2)) 1 Kidney damage with normal or decreased GFR 90 2 Kidney damage with mild decrease in GFR 60-89 3 Moderate decrease in GFR 30-59 4 Severe decrease in GFR 15-29 5 Kidney failure <15 (or dialysis) 45 Comment: via catch 46 Because ethnic data is not always readily available, this report includes an eGFR for both -Americans and non- Americans. The National Kidney Disease Education Program (NKDEP) does not endorse the use of the MDRD equation for patients that are not between the ages of 18 and 70, are , have extremes of body size, muscle mass, or nutritional status, or are non- or non-. According to the National Kidney Foundation, irrespective of diagnosis, the stage of the disease is based on the level of kidney function: Stage Description GFR(mL/min/1.73 m(2)) 1 Kidney damage with normal or decreased GFR 90 2 Kidney damage with mild decrease in GFR 60-89 3 Moderate decrease in GFR 30-59 4 Severe decrease in GFR 15-29 5 Kidney failure <15 (or dialysis) 47 Reference Range and Interpretation: TnI (ng/mL) Interpretation Less Than 0.03 ng/mL Not supportive of diagnosis of SD 0.03 - 0.50 ng/mL Indeterminate: suggest serial studies if clinically indicated. Greater than 0.5 ng/mL Consistent with diagnosis of SD 48 Because ethnic data is not always readily available, this report includes an eGFR for both -Americans and non- Americans. The National Kidney Disease Education Program (NKDEP) does not endorse the use of the MDRD equation for patients that are not between the ages of 18 and 70, are , have extremes of body size, muscle mass, or nutritional status, or are non- or non-. According to the National Kidney Foundation, irrespective of diagnosis, the stage of the disease is based on the level of kidney function: Stage Description GFR(mL/min/1.73 m(2)) 1 Kidney damage with normal or decreased GFR 90 2 Kidney damage with mild decrease in GFR 60-89 3 Moderate decrease in GFR 30-59 4 Severe decrease in GFR 15-29 5 Kidney failure <15 (or dialysis) 49 RUN DATE: 08/31/13 [facility] LAB LIVE PAGE 1 RUN TIME: [address] [place], [place] [address] Specimen Inquiry Name: JAY COATES : [address]: Ankita Clements MD Acct: [id number] Unit: [id number] AGE: 58 Location: [facility] Re08/28/13 SEX: F Status: REG REF SPEC: [id number] MIGUEL: 08/28/[address]: Ankita Clements MD REQ: [id number] RECD: 08/28/13 STATUS: SOUT _ ORDERED: IMAGE ANALYSIS FINAL DIAGNOSIS Negative for Intraepithelial lesion or Malignancy A. Ectocervical/Endocervical Specimen Adequacy: Satisfactory of evaluation Transformation zone component cannot be definitely identified due to presence of atrophy or other hormonal changes Patient Information: HPV: Thin Layer Pap Test w/reflex to high risk HPV DNA testing when ASCUS Actual Specimen Date: 08/28/13 LMP If Unknown: 4+ yrs ago Cautery: N IUD: N Lesion, grossly demonstrate: N ?: N Post Menopausal?: Y Hysterectomy?: N Previous Abnormal Pap Smears?:N Signed (signature on file) Freddy KAROLINA Plascencia (ASCP) 08/31 1305 This Pap test was evaluated with the assistance of the QooplPrep Test Imaging System. Due to cytologic findings at the communications administrator microscope, comprehensive manual rescreening by a Hogshead Wrecker may be required. The Pap Smear is a screening test designed to aid in the detection of premalignant and malignant conditions of the uterine cervix. It is not a diagnostic procedure and should not be used as the sole means of detecting cervical cancer. Both false- positive and false- negative reports do occur. Depending on your risk status, a Pap smear shoudl be obtained and evaluated every 1-3 years. END OF REPORT * ML=Testing performed at Main Lab DEPARTMENT OF PATHOLOGY, [facility] [address] [place] [address] Eh Rooney M.D. Director [facility] Permit #[id number] 50 RUN DATE: 08/01/13 [facility] LAB LIVE PAGE 1 RUN TIME: 1155 [facility] [employer] [place], [place] [address] Specimen Inquiry Name: JAY COATES : [address]: Ankita Clements MD Acct: [id number] Unit: [id number] AGE: 57 Location: [facility] Re07/31/13 SEX: F Status: REG REF SPEC: [id number] MIGUEL: 07/31/13-1213 [facility] DR: Ankita Clements MD REQ: [id number] RECD: 07/31/13 STATUS: COMP _ SOURCE: VAGINAL SPDESC: ORDERED: Affirm QUERIES: Medent Number [id number] Procedure Result Verified Site Affirm Vaginal DNA Probe Final 08/01/13- 1155 ML Organism 1 Negative Trichomonas Organism 2 Negative Gardnerella Organism 3 Negative Hanna The presence of G. vaginalis, although suggestive, is not diagnostic for bacterial vaginosis. Results should be interpreted in conjunction with other clinical and laboratory data available. Women with vaginal discharge should be evaluated for risk factors of cervicitis and pelvic inflammatory disease, toxic shock syndrome (S.aureus), and if present, evaluated for organisms not included in this assay such as N. gonorrhoeae, C. trachomatis, Mobiluncus, Mycoplasma and/or Prevotella. Mixed infections may occur. The performance of this test on patient specimens collected during or immediately after antimicrobial therapy is unknown. The presence or absence of Hanna species, G. vaginalis or T. vaginalis cannot be used as a test for therapeutic success or failure. END OF REPORT * ML=Testing performed at Main Lab DEPARTMENT OF PATHOLOGY, [facility] [address] [place], [place] [address] Eh Rooney M.D. Director [facility] Permit #[id number] 51 -- REFERENCE VALUE -- 25-HYDROXY D TOTAL (D2+D3) Optimum levels in the normal population are 25-80 Test Performed by: [facility] [address] [address] Technical Project Manager: Justin Baker III, M.D. 52 HDL Interpretation: Undesirable: High Risk: Less than 40 mg/dL Desirable: Low Risk: Greater than 60 mg/dL 53 LDL Interpretation: Low Risk Optimal Level: LDL Less than 100 mg/dL Near or Above Optimal: LDL 100-129 mg/dL Borderline High Risk: LDL 130-159 mg/dL High Risk: LDL 160-189 mg/dL Very High Risk: LDL Greater than 189 mg/dL 54 RUN DATE: 03/29/13 [facility] LAB LIVE PAGE 1 RUN TIME: [address] [place] [address] Specimen Inquiry Name: JAY COATES : [address]: Ankita Clements MD Acct: [id number] Unit: [id number] AGE: 57 Location: [facility] Re03/27/13 SEX: F Status: REG REF SPEC: [id number] MIGUEL: 03/27/13-1150 [facility] DR: Ankita Clements MD REQ: [id number] RECD: 03/27/13 STATUS: COMP _ SOURCE: URINE SPDESC: ORDERED: Urine Culture QUERIES: Medent Number [id number] Procedure Result Verified Site Urine Culture Final 03/29/13- 1057 ML Organism 1 NORMAL MARTY [place] Count >100,000 (Many) CFU/ML END OF REPORT * ML=Testing performed at Main Lab DEPARTMENT OF PATHOLOGY, [address] [place] [address] Eh Rooney M.D. Director [facility] Permit #[id number] 55 -- REFERENCE VALUE -- Cutoff: 500 56 -- REFERENCE VALUE -- Cutoff: 200 57 -- REFERENCE VALUE -- Cutoff: 200 58 -- REFERENCE VALUE -- Cutoff: 150 59 -- REFERENCE VALUE -- Cutoff: 300 60 -- REFERENCE VALUE -- Cutoff: 300 61 -- REFERENCE VALUE -- Cutoff: 300 62 This report is intended for use in clinical monitoring or management of patients. It is not intended for use in employment-related testing. 63 Test Performed by: [facility] - [address] [address] Technical Project Manager: Justin Baker III, M.D. 64 -- REFERENCE VALUE -- Cutoff: 300 65 -- REFERENCE VALUE -- Cutoff: 100 66 -- REFERENCE VALUE -- Cutoff: 100 67 -- REFERENCE VALUE -- Cutoff: 100 68 -- REFERENCE VALUE -- Cutoff: 100 69 -- REFERENCE VALUE -- Cutoff: 100 70 This report is intended for use in clinical monitoring and management of patients. It is not intended for use in employment-related testing. Test Performed by: [facility] - [address] [address] Technical Project Manager: Justin Baker III, M.D. 71 RUN DATE: 11/30/12 [facility] LAB LIVE PAGE 1 RUN TIME: [address] [place] [address] Specimen Inquiry Name: JAY COATES : [address]: Ankita Clements MD Acct: [id number] Unit: [id number] AGE: 57 Location: LAB Re11/28/12 SEX: F Status: REG REF SPEC: [id number] MIGUEL: 11/28/12 [facility] DR: Ankita Clements MD REQ: [id number] RECD: 11/28/12 STATUS: COMP _ SOURCE: URINE SPDESC: ORDERED: Urine Culture QUERIES: Medent Number [id number] Urine Source: Clean Catch Procedure Result Verified Site Urine Culture Final 11/30/12- 09 ML Organism 1 NORMAL MARTY [place] Count >100,000 (Many) CFU/ML END OF REPORT * ML=Testing performed at Main Lab DEPARTMENT OF PATHOLOGY, [facility] [address] [place], [place] [address] Eh Rooney M.D. Director [facility] Permit #[id number] 72 RUN DATE: 11/24/12 [facility] LAB LIVE PAGE 1 RUN TIME: [address] [employer] [place], [place] [address] Specimen Inquiry Name: JAY COATES : [address]: Prabhakar Pop DO Acct: [id number] Unit: [id number] AGE: 57 Location: ED Re11/22/12 SEX: F Status: DEP ER SPEC: [id number] MIGUEL: 11/22/120 [facility] DR: Prabhakar Pop DO REQ: [id number] RECD: 11/22/12 STATUS: SRI SANDS DR: Ankita Clements MD _ SOURCE: URINE [facility]: ORDERED: Urine Culture Procedure Result Verified Site Urine Culture Final 11/24/12- 1036 ML Organism 1 NORMAL MARTY [place] Count >100,000 (Many) CFU/ML END OF REPORT * ML=Testing performed at Main Lab DEPARTMENT OF PATHOLOGY, [address] [place] [address] Eh Rooney M.D. Director [facility] Permit #[id number] 73 2+ (>10-30 /hpf) 74 Because ethnic data is not always readily available, this report includes an eGFR for both -Americans and non- Americans. The National Kidney Disease Education Program (NKDEP) does not endorse the use of the MDRD equation for patients that are not between the ages of 18 and 70, are , have extremes of body size, muscle mass, or nutritional status, or are non- or non-. According to the National Kidney Foundation, irrespective of diagnosis, the stage of the disease is based on the level of kidney function: Stage Description GFR(mL/min/1.73 m(2)) 1 Kidney damage with normal or decreased GFR 90 2 Kidney damage with mild decrease in GFR 60-89 3 Moderate decrease in GFR 30-59 4 Severe decrease in GFR 15-29 5 Kidney failure <15 (or dialysis) 75 Comment: b Comment: d Comment: c Comment: s 76 Comment: b Comment: d Comment: c Comment: s 77 CKMB interpretation should be made in conjunction with clinical symptoms, patient history and EKG changes. 78 Reference Range and Interpretation: TnI (ng/ml) Interpretation Less Than 0.06 ng/mL Not supportive of diagnosis of SD 0.06 - 0.50 ng/ml Indeterminate: suggest serial studies if clinically indicated. Greater than 0.5 ng/mL Consistent with diagnosis of SD 79 Because ethnic data is not always readily available, this report includes an eGFR for both -Americans and non- Americans. The National Kidney Disease Education Program (NKDEP) does not endorse the use of the MDRD equation for patients that are not between the ages of 18 and 70, are , have extremes of body size, muscle mass, or nutritional status, or are non- or non-. According to the National Kidney Foundation, irrespective of diagnosis, the stage of the disease is based on the level of kidney function: Stage Description GFR(mL/min/1.73 m(2)) 1 Kidney damage with normal or decreased GFR 90 2 Kidney damage with mild decrease in GFR 60-89 3 Moderate decrease in GFR 30-59 4 Severe decrease in GFR 15-29 5 Kidney failure <15 (or dialysis) 80 RUN DATE: 08/25/12 [facility] LAB LIVE PAGE 1 RUN TIME: [address] [place], [place] [address] Specimen Inquiry Name: JAY COATES : [address]: Ankita Clements MD Acct: [id number] Unit: [id number] AGE: 57 Location: [facility] Re08/22/12 SEX: F Status: REG REF SPEC: [id number] MIGUEL: 08/22/12-1222 [facility] DR: Tyree SOLOMON, Ankita Sellers REQ: [id number] RECD: 08/25/12 STATUS: SOUT _ ORDERED: IMAGE ANALYSIS FINAL DIAGNOSIS Negative for Intraepithelial lesion or Malignancy A. Ectocervical/Endocervical Specimen Adequacy: Satisfactory of evaluation Transformation zone component cannot be definitely identified due to presence of atrophy or other hormonal changes Patient Information: HPV: Thin Layer Pap Test w/reflex to high risk HPV DNA testing when ASCUS Actual Specimen Date: 08/22/12 LMP If Unknown: 4 yrs Signed (signature on file) Tameka Webber [place] (ASCP) 08/25/12 1158 This Pap test was evaluated with the assistance of the snapp.mep Test Imaging System. Due to cytologic findings at the communications administrator microscope, comprehensive manual rescreening by a Hogshead Wrecker may be required. The Pap Smear is a screening test designed to aid in the detection of premalignant and malignant conditions of the uterine cervix. It is not a diagnostic procedure and should not be used as the sole means of detecting cervical cancer. Both false- positive and false- negative reports do occur. Depending on your risk status, a Pap smear shoudl be obtained and evaluated every 1-3 years. END OF REPORT * ML=Testing performed at Main Lab DEPARTMENT OF PATHOLOGY, [address] [place] [address] Eh Rooney M.D. Director [facility] Permit #[id number] 81 -- REFERENCE VALUE -- 25-HYDROXY D TOTAL (D2+D3) Optimum levels in the normal population are 25-80 Test Performed by: [facility] - [address] [address] Technical Project Manager: Justin Baker III, M.D. 82 RUN DATE: 08/11/12 [facility] LAB LIVE PAGE 1 RUN TIME: [address] [place] [address] Specimen Inquiry Name: JAY COATES : [address]: Ankita Clements MD Acct: [id number] Unit: [id number] AGE: 56 Location: [facility] Re08/08/12 SEX: F Status: REG REF SPEC: [id number] MIGUEL: 08/08/12-1006 [facility] DR: Tyree SOLOMON, Ankita Sellers REQ: [id number] RECD: 08/08/12 STATUS: COMP _ SOURCE: STOOL SPDESC: ORDERED: Stool Culture, C. diff Amp DNA, O P: Giar/Crypt QUERIES: Medent Number [id number] Procedure Result Verified Site Stool Culture Final 08/10/12- 1029 ML Result No enteric pathogens isolated Testing for Salmonella, Shigella, Aeromonas, Plesiomonas, Yersinia and Campylobacter are included in a Stool Culture. Vibrio spp not routinely tested for in a stool culture. If testing is desired, please request specifically when placing test order. Sensitivities not routinely performed on stool isolates, as antibiotics may prolong the carriage rate of bacteria. Please contact the microbiology lab if sensitivities are required. Stool Specimen Description Final 08/09/12- 0734 ML Test not performed Shiga Toxin 1 2 Final 08/11/12- 1146 ML SHIGA TOXIN 1 Negative by Immunochromatographic Assay SHIGA TOXIN 2 Negative by Immunochromatographic Assay C. difficile Amplified DNA Final 08/09/12- 1420 ML C. difficile Amplif DNA Negative: No Toxigenic C. difficile Detected TEST LIMITATIONS: Assay does not distinguish between viable and nonviable organisms. Test results are to be used in conjunction with information available from the patient clinical evaluation CONTINUED ON NEXT PAGE * ML=Testing performed at Main Lab DEPARTMENT OF PATHOLOGY, [address] [place] [address] Eh Rooney M.D. Director [facility] Permit #[id number] RUN DATE: 08/11/12 [facility] LAB LIVE PAGE 2 RUN TIME: [address] [place] [address] Specimen Inquiry Patient: JAY COATES [id number] (Continued) Specimen: [id number] Collected: 08/08/12100 Received: 08/08/12 (Continued) Procedure Result Verified Site C. difficile Amplified DNA Final (continued) 08/09/12- 1420 and other diagnostic procedures. Two distinct groups have been identified that can harbor C. difficile asymptomatically at very high rates. Colonization at rates up to 50% and higher have been reported in infants and rates up to 32% in cystic fibrosis patients. O P: Giardia/Cryptospor Screen Final 08/11/12- 1204 ML Giardia Antigen Negative by Immunoassay Cryptosporidium Antigen Negative by Immunoassay Giardia and cryptosporidium antigen testing performed by immunoassay. If patient is immunocompromised or has traveled to or is from a developing country, a full ova and parasite exam with microscopic (OPMIC) is recommended. All samples will be held one month in case full ova and parasite testing is requested. Contact the Microbiology Department at [phone]. TEST LIMITATIONS: As with all diagnostic procedures, the results obtained should be used in conjunction with other clinical information available the physician. Negative results can occur in samples containing antigen below lower limits of detection of the assay. The use of colonic washes, aspirates or other diluted sample types has not been established and could affect the performance of the assay. Stool samples contaminated with an oily or particulate base (eg. Barium, mineral oil etc.) could interfere with the test and are not recommended. END OF REPORT * ML=Testing performed at Main Lab DEPARTMENT OF PATHOLOGY, [facility] [address] [place], [place] [address] Eh Rooney M.D. Director [facility] Permit #[id number] RUN DATE: 08/09/12 [facility] LAB LIVE PAGE 1 RUN TIME: 1420 [facility] [employer] [place], [place] [address] Specimen Inquiry Name: JAY COATES : [address]: Tyree SOLOMON ,Ankita Sellers Acct: [id number] Unit: [id number] AGE: 56 Location: [facility] Re08/08/12 SEX: F Status: REG REF SPEC: [id number] MIGUEL: 08/08/12-[address]: Tyree SOLOMON, Ankita Sellers REQ: [id number] RECD: 08/08/12 STATUS: RES _ SOURCE: STOOL SPDESC: ORDERED: Stool Culture, C. diff Amp DNA, O P: Giar/Crypt QUERIES: Medent Number [id number] Procedure Result Verified Site Stool Culture Preliminary 08/09/12- 1109 ML <No reportable results for this procedure> Stool Specimen Description Final 08/09/12- 0734 ML Test not performed Shiga Toxin 1 2 PENDING C. difficile Amplified DNA Final 08/09/12- 1420 ML C. difficile Amplif DNA Negative: No Toxigenic C. difficile Detected TEST LIMITATIONS: Assay does not distinguish between viable and nonviable organisms. Test results are to be used in conjunction with information available from the patient clinical evaluation and other diagnostic procedures. Two distinct groups have been identified that can harbor C. difficile asymptomatically at very high rates. Colonization at rates up to 50% and higher have been reported in infants and rates up to 32% in cystic fibrosis patients. O P: Giardia/Cryptospor Screen PENDING END OF REPORT * ML=Testing performed at Main Lab DEPARTMENT OF PATHOLOGY, [facility] [address] [place], [place] [address] Eh Rooney M.D. Director [facility] Permit #[id number] RUN DATE: 08/11/12 [facility] LAB LIVE PAGE 1 RUN TIME: 1146 [facility] [employer] [place], [place] [address] Specimen Inquiry Name: JAY COATES : [address]: Ankita Clements MD Acct: [id number] Unit: [id number] AGE: 56 Location: [facility] Re08/08/12 SEX: F Status: REG REF SPEC: [id number] MIGUEL: 08/08/12-1006 [facility] DR: Tyree SOLOMON, Ankita Sellers REQ: [id number] RECD: 08/08/12 STATUS: RES _ SOURCE: STOOL SPDESC: ORDERED: Stool Culture, C. diff Amp DNA, O P: Giar/Crypt QUERIES: Medent Number [id number] Procedure Result Verified Site Stool Culture Final 08/10/12- 1029 ML Result No enteric pathogens isolated Testing for Salmonella, Shigella, Aeromonas, Plesiomonas, Yersinia and Campylobacter are included in a Stool Culture. Vibrio spp not routinely tested for in a stool culture. If testing is desired, please request specifically when placing test order. Sensitivities not routinely performed on stool isolates, as antibiotics may prolong the carriage rate of bacteria. Please contact the microbiology lab if sensitivities are required. Stool Specimen Description Final 08/09/12- 0734 ML Test not performed Shiga Toxin 1 2 Final 08/11/12- 1146 ML SHIGA TOXIN 1 Negative by Immunochromatographic Assay SHIGA TOXIN 2 Negative by Immunochromatographic Assay C. difficile Amplified DNA Final 08/09/12- 1420 ML C. difficile Amplif DNA Negative: No Toxigenic C. difficile Detected TEST LIMITATIONS: Assay does not distinguish between viable and nonviable organisms. Test results are to be used in conjunction with information available from the patient clinical evaluation CONTINUED ON NEXT PAGE * ML=Testing performed at Main Lab DEPARTMENT OF PATHOLOGY, [address] [place] [address] Eh Rooney M.D. Director [facility] Permit #[id number] RUN DATE: 08/11/12 [facility] LAB LIVE PAGE 2 RUN TIME: [address] [place] [address] Specimen Inquiry Patient: JAY COATES [id number] (Continued) Specimen: [id number] Collected: 08/08/12 Received: 08/08/12-1724 (Continued) Procedure Result Verified Site C. difficile Amplified DNA Final (continued) 08/09/12- 1419 and other diagnostic procedures. Two distinct groups have been identified that can harbor C. difficile asymptomatically at very high rates. Colonization at rates up to 50% and higher have been reported in infants and rates up to 32% in cystic fibrosis patients. O P: Giardia/Cryptospor Screen PENDING END OF REPORT * ML=Testing performed at Main Lab DEPARTMENT OF PATHOLOGY, [facility] [address] [place], [place] [address] Eh Rooney M.D. Director [facility] Permit #[id number] RUN DATE: 08/05/12 [facility] LAB LIVE PAGE 1 RUN TIME: [address] [place] [address] Specimen Inquiry Name: JAY COATES : [address]: Prabhakar Pop DO Acct: [id number] Unit: [id number] AGE: 56 Location: ED Re08/03/12 SEX: F Status: DEP ER SPEC: [id number] MIGUEL: 08/03/[address]: Prabhakar Pop DO REQ: [id number] RECD: 08/03/12 STATUS: SRI SANDS DR: Tyree SOLOMON,Ankita Sellers _ SOURCE: URINE SPDESC: ORDERED: Urine Culture Procedure Result Verified Site Urine Culture Final 08/05/12- 1032 ML No Growth Day 2 (<1,000 CFU/mL) END OF REPORT * ML=Testing performed at Main Lab DEPARTMENT OF PATHOLOGY, [address] [place] [address] Eh Rooney M.D. Director [facility] Permit #[id number] RUN DATE: 08/04/12 [facility] LAB LIVE PAGE 1 RUN TIME: [address] [place] [address] Specimen Inquiry Name: JAY COATES : [address]: Prabhakar Pop DO Acct: [id number] Unit: [id number] AGE: 56 Location: ED Re08/03/12 SEX: F Status: DEP ER SPEC: [id number] MIGUEL: 08/03/[address]: Prabhakar Pop DO REQ: [id number] RECD: 08/03/12 STATUS: SRI SANDS DR: Tyree SOLOMON,Ankita Sellers _ SOURCE: STOOL SPDESC: ORDERED: Fecal Lactoferr Procedure Result Verified Site Stool Specimen Description Final 08/04/12- 0746 ML Stool Color Brown Stool Form Nonformed Stool Consistency Soft Fecal Lactoferrin (Stool WBC) Final 08/04/12- 1258 ML Fecal Lactoferrin Positive by Immunoassay TEST LIMITATIONS: Assay detects elevated levels of lactoferrin released from fecal leukocytes as a marker of intestinal inflammation. The test may not be appropriate in immunocompromised persons. Fecal samples from breast fed infants should not be used with this assay. END OF REPORT * ML=Testing performed at Main Lab DEPARTMENT OF PATHOLOGY, [address] [place] [address] Eh Rooney M.D. Director [facility] Permit #[id number] 87 2+ (>10-30 /hpf) 88 Effective 07/09/12, bilirubin confirmation by ictotest is discontinued. False-positive results for bilirubin may occur due to color interference from large amounts of blood in the urine, very concentrated urine, or drugs that discolor urine such as phenazopyridine(Pyridium). 89 Because ethnic data is not always readily available, this report includes an eGFR for both -Americans and non- Americans. The National Kidney Disease Education Program (NKDEP) does not endorse the use of the MDRD equation for patients that are not between the ages of 18 and 70, are , have extremes of body size, muscle mass, or nutritional status, or are non- or non-. According to the National Kidney Foundation, irrespective of diagnosis, the stage of the disease is based on the level of kidney function: Stage Description GFR(mL/min/1.73 m(2)) 1 Kidney damage with normal or decreased GFR 90 2 Kidney damage with mild decrease in GFR 60-89 3 Moderate decrease in GFR 30-59 4 Severe decrease in GFR 15-29 5 Kidney failure <15 (or dialysis) 90 Anion gap measurement may be of limited value in the presence of any alkalosis, especially in a combined acid base disorder. . 91 A metabolite of Naproxen, O-desmethylnaproxen, has been shown to interfere with the Jendrassik-John method for measuring total bilirubin. Samples from patients who have taken Naproxen have shown spurious elevation in total bilirubin levels. 92 Because ethnic data is not always readily available, this report includes an eGFR for both -Americans and non- Americans. The National Kidney Disease Education Program (NKDEP) does not endorse the use of the MDRD equation for patients that are not between the ages of 18 and 70, are , have extremes of body size, muscle mass, or nutritional status, or are non- or non-. According to the National Kidney Foundation, irrespective of diagnosis, the stage of the disease is based on the level of kidney function: Stage Description GFR(mL/min/1.73 m(2)) 1 Kidney damage with normal or decreased GFR 90 2 Kidney damage with mild decrease in GFR 60-89 3 Moderate decrease in GFR 30-59 4 Severe decrease in GFR 15-29 5 Kidney failure <15 (or dialysis) 93 A metabolite of Naproxen, O-desmethylnaproxen, has been shown to interfere with the [place] method for measuring total bilirubin. Samples from patients who have taken Naproxen have shown spurious elevation in total bilirubin levels. 94 Please note updated reference range, effective 03/02/10 95 Test Performed by: [address] [address] Technical Project Manager: Justin Baker III, M.D. 96 -- REFERENCE VALUE -- Not present Test Performed by: [facility] [address] [place] [address] Technical Project Manager: Justin Baker III, M.D. 97 CHOLESTEROL INTERPRETATION: Desirable: Less than 200 MG/DL Borderline-High Risk: 200-239 MG/DL High-Risk: 240 MG/DL and over 98 HDL INTERPRETATION: Undesirable: High Risk: Less than 40 MG/DL Desirable: Low Risk: Greater than 60 MG/DL 99 LDL INTERPRETATION: Low Risk Optimal Level: LDL Less than 100 MG/DL Near or Above Optimal: LDL 100-129 MG/DL Borderline High Risk: LDL 130-159 MG/DL High Risk: LDL 160-189 MG/DL Very High Risk: LDL Greater than 189 MG/DL 100 Lymphopenia % 101 Recommended INR for Patients on Oral Anticoagulants Prophylaxis 2.0 - 3.0 Treatment of thrombosis 2.0 - 3.0 Prevention of embolism 2.0 - 3.0 Prevention of embolism from prosthetic heart valves 2.5 - 3.5 102 DIAGNOSIS,TREATMENT,AND THERAPY MUST BE BASED ON THE INR VALUE ALONE. 103 -- REFERENCE VALUE -- <0.1 (Negative) Test Performed by: [facility] Dpt of Lab Med and Pathology [address] [place] [address] Technical Project Manager: Justin Baker III, M.D. 104 Test Performed by: [facility] Dpt of Lab Med and Pathology [address] [place] [address] Technical Project Manager: Justin Baker III, M.D. 105 -- REFERENCE VALUE -- Not present Test Performed by: [facility] Dpt of Lab Med and Pathology [address] [place] [address] Technical Project Manager: Justin Baker III, M.D. 106 Anion gap measurement may be of limited value in the presence of any alkalosis, especially in a combined acid base disorder. . 107 A metabolite of Naproxen, O-desmethylnaproxen, has been shown to interfere with the J[place]rass[place] method for measuring total bilirubin. Samples from patients who have taken Naproxen have shown spurious elevation in total bilirubin levels. 108 Because ethnic data is not always readily available, this report includes an eGFR for both -Americans and non- Americans. The National Kidney Disease Education Program (NKDEP) does not endorse the use of the MDRD equation for patients that are not between the ages of 18 and 70, are , have extremes of body size, muscle mass, or nutritional status, or are non- or non-. According to the National Kidney Foundation, irrespective of diagnosis, the stage of the disease is based on the level of kidney function: Stage Description GFR(mL/min/1.73 m(2)) 1 Kidney damage with normal or decreased GFR 90 2 Kidney damage with mild decrease in GFR 60-89 3 Moderate decrease in GFR 30-59 4 Severe decrease in GFR 15-29 5 Kidney failure <15 (or dialysis) 109 CHOLESTEROL INTERPRETATION: Desirable: Less than 200 MG/DL Borderline-High Risk: 200-239 MG/DL High-Risk: 240 MG/DL and over 110 HDL INTERPRETATION: Undesirable: High Risk: Less than 40 MG/DL Desirable: Low Risk: Greater than 60 MG/DL 111 LDL INTERPRETATION: Low Risk Optimal Level: LDL Less than 100 MG/DL Near or Above Optimal: LDL 100-129 MG/DL Borderline High Risk: LDL 130-159 MG/DL High Risk: LDL 160-189 MG/DL Very High Risk: LDL Greater than 189 MG/DL 112 COLLECTED FROM 06/30/11729 THROUGH 07/01/11729. 113 URINE PROTEIN BELOW DETECTABLE LIMITS 114 DECREASED BETA GLOBULIN 115 Please note change in reference range effective 08 . 116 CHOLESTEROL INTERPRETATION: Desirable: Less than 200 MG/DL Borderline-High Risk: 200-239 MG/DL High-Risk: 240 MG/DL and over 117 HDL INTERPRETATION: Undesirable: High Risk: Less than 40 MG/DL Desirable: Low Risk: Greater than 60 MG/DL 118 LDL INTERPRETATION: Low Risk Optimal Level: LDL Less than 100 MG/DL Near or Above Optimal: LDL 100-129 MG/DL Borderline High Risk: LDL 130-159 MG/DL High Risk: LDL 160-189 MG/DL Very High Risk: LDL Greater than 189 MG/DL 119 SPECIMEN CONTAINS NORMAL URETHRAL OR PERINEAL MARTY AND DOES NOT SUGGEST URINARY TRACT INFECTION 120 Lymphopenia % 121 -- REFERENCE VALUE -- 25-HYDROXY D TOTAL (D2+D3) Optimum levels in the normal population are 25-80 Test Performed by: [facility] Dpt of Lab Med and Pathology [address] [place], [place] [id number] Technical Project Manager: Justin Baker III, M.D. 122 Anion gap measurement may be of limited value in the presence of any alkalosis, especially in a combined acid base disorder. . 123 A metabolite of Naproxen, O-desmethylnaproxen, has been shown to interfere with the [place]-John method for measuring total bilirubin. Samples from patients who have taken Naproxen have shown spurious elevation in total bilirubin levels. 124 Because ethnic data is not always readily available, this report includes an eGFR for both -Americans and non- Americans. The National Kidney Disease Education Program (NKDEP) does not endorse the use of the MDRD equation for patients that are not between the ages of 18 and 70, are , have extremes of body size, muscle mass, or nutritional status, or are non- or non-. According to the National Kidney Foundation, irrespective of diagnosis, the stage of the disease is based on the level of kidney function: Stage Description GFR(mL/min/1.73 m(2)) 1 Kidney damage with normal or decreased GFR 90 2 Kidney damage with mild decrease in GFR 60-89 3 Moderate decrease in GFR 30-59 4 Severe decrease in GFR 15-29 5 Kidney failure <15 (or dialysis) Procedures Date CPT Code Description Status 10/02/2017 Mammogram Completed 01/29/2017 90281 ECHO Transthoracic, Real-Time 2D With Doppler And Color Completed Flow 01/28/2017 11815 EKG Tracing & Interpretation Completed 01/21/2017 09236 EKG Tracing & Interpretation Completed 09/28/2016 Mammogram Completed 09/28/2016 Bone Mineral Density Test Completed 09/13/2015 Mammogram Completed 09/09/2014 Mammogram Completed 01/03/2014 63651 EKG, Interpretation Only Completed 01/01/2014 79461 Treadmill Interp/Report Only Completed 01/01/2014 29446 Stress Test Supervsn W/Out I/R Completed 12/31/2013 16067 EKG, Interpretation Only Completed 12/18/2013 Colonoscopy Completed 09/25/2013 10222 Rad Exam; Ankle Comp Completed 09/25/2013 05326 Rad Exam; Foot Limited Completed 09/07/2013 Bone Mineral Density Test Completed 09/07/2013 Mammogram Completed 09/03/2012 Bone Mineral Density Test Completed 09/03/2012 Mammogram Completed 04/26/2012 21459 Cat Scan Pelvis W/O Contrast,computed tomography Completed 08/20/2011 98374 Rad Exam; Ankle Limited Completed 08/20/2011 44333 Rad Exam; Ankle Comp Completed 08/20/2011 36767 Rad Exam; Foot Limited Completed 06/25/2011 Bone Mineral Density Test Completed 06/25/2011 Mammogram Completed Encounters Type Date Location Provider CPT E/M Dx Office Visit 01/21/2018 10:30a [facility] Internal Medicine Kenzie Will M.D. 39117 I10 - Fei Z68.34 Z23 Office Visit 07/23/2017 10:30a [facility] Internal Medicine Kenzie Will 20156 Z00.01 - Fei Andrea N18.3 Z79.899 H61.21 E78.2 Office Visit 01/28/2017 1:00p [facility], 41034 R94.31 [facility] I10 I44.4 N18.3 E78.2 Office Visit 01/21/2017 11:50a [facility] Internal Medicine - Kenzie Will M.D. 79499 I10 Fei I44.4 N18.3 I12.9 Office Visit 08/14/2016 9:10a [facility] Internal Medicine Kenzie Will 09528 L02.818 - Fei Andrea Office Visit 07/23/2016 11:10a [facility] Internal Medicine Kenzie Will 78763 Z00.00 - Fei Andrea M81.0 N18.3 E78.2 Z23 Office Visit 06/04/2016 2:40p [facility] Internal Medicine Víctor Miner, 84897 R35.0 - Fei Andrea Office Visit 05/28/2016 1:20p [facility] Internal Medicine Kenzie Will M.D. 28916 N64.4 - Fei B30.9 N19 Z11.59 Office Visit 01/20/2016 11:00a [facility] Internal Medicine - Ankita Clements M.D. 63557 I10 [place] E78.2 N19 M81.0 M25.571 Office Visit 07/21/2015 11:00a [facility] Internal Medicine Ankita Clements M.D. 12019 Z00.01 - [place] I10 E78.2 Z12.39 N19 M81.0 Office Visit 06/17/2015 3:00p [facility] [place] [address] L03.114 [place] Office Visit 06/13/2015 3:30p [facility] [place] [address] L03.119 [place] L03.114 Office Visit 03/18/2015 11:20a [facility] Internal Medicine Ankita Clements M.D. 37157 588.9 - [place] 401.9 272.2 Office Visit 01/18/2015 2:50p [facility] Internal Medicine Kenzie Will M.D. 58775 466.0 - [place] Office Visit 01/05/2015 1:50p [facility] Internal Medicine Kenzie Will M.D. 52567 995.3 - [place] 611.79 477.9 Office Visit 09/17/2014 11:20a [facility] Internal Medicine Ankita Clements M.D. 44739 V76.19 - [place] V76.2 588.9 V72.31 Office Visit 08/17/2014 11:00a [facility] Internal Medicine - Ankita Clements M.D. 37813 586 [place] 272.2 V76.19 Office Visit 06/15/2014 1:20p [facility] Internal Medicine - Ankita Clements M.D. 01931 586 [place] 272.2 733.00 401.9 704.01 Office Visit 01/07/2014 3:40p [facility] Internal Medicine Ankita Clements M.D. 84960 590.80 - [place] 564.00 311 586 Office Visit 01/05/2014 12:57p [facility] Jones 96785 786.51 [facility] [place] 595.0 272.2 599.70 Office Visit 01/04/2014 12:57p [facility] Cesar Jones 23174 786.51 [facility] [place] 595.0 272.2 599.70 Office Visit 01/03/2014 12:56p Lauren Jones 80569 786.51 [facility] [place] 595.0 272.2 599.70 Office Visit 01/02/2014 12:55p Lauren Jones 75448 786.51 [facility] [place] 595.0 272.2 599.70 Office Visit 01/01/2014 12:54p Lauren Jones, 93624 786.51 [facility]oc, Hospital[facility] Andrea 595.0 458.9 272.2 Office Visit 12/30/2013 12:51p [facility], Gayle Narvaez N.P. 38813 786.51 Hospitalists 595.0 401.9 272.2 Office Visit 10/21/2013 1:45p [facility], 35921 715.17 April Andrea Office Visit 09/25/2013 10:15a [facility], 80525 715.17 April Andrea Office Visit 08/28/2013 9:00a [facility] Internal Medicine Ankita Clements M.D. 42246 V70.0 - [place] V76.2 V76.19 V76.51 272.2 733.00 722.93 790.6 780.79 Office Visit 07/31/2013 11:20a [facility] Internal Medicine Ankita Clements M.D. 71716 788.1 - [place] 616.10 V76.19 V76.41 V04.81 Office Visit 03/27/2013 11:20a [facility] Internal Medicine Ankita Clements M.D. 78261 788.1 - [place] 278.00 733.00 272.2 Office Visit 01/22/2013 11:40a [facility] Internal Medicine Ankita Clements M.D. 57624 722.93 - [place] 272.2 Office Visit 12/18/2012 11:40a [facility] Internal Medicine Ankita Clements M.D. 61395 722.93 - [place] 733.00 592.0 311 599.0 Office Visit 09/18/2012 2:40p [facility] Internal Medicine Ankita Clements M.D. 27642 595.0 - [place] 787.91 Office Visit 09/13/2012 10:03a [facility], Carlos Marquez, 18151 595.0 Hospitalists N.P. 458.9 311 Office Visit 09/12/2012 10:03a [facility], Mukesh Montero M.D. 34428 595.0 Hospitalists 458.9 311 Office Visit 08/22/2012 11:00a [facility] Internal Medicine Ankita Clements M.D. 16364 V76.19 - [place] V76.2 787.91 733.00 276.8 808.8 V72.31 Office Visit 05/16/2012 2:21p [facility], Mukesh Montero M.D. 75967 808.8 Hospitalists 805.8 Office Visit 05/14/2012 2:21p [facility], Mukesh Montero M.D. 25806 808.8 Hospitalists 805.8 Office Visit 05/11/2012 2:20p [facility], Mukesh Montero M.D. 05065 808.8 Hospitalists 805.8 Office Visit 05/02/2012 2:18p [facility], Sabina Helton, 69985 808.8 Hospitalists [place] 805.8 Office Visit 04/28/2012 2:15p [facility] 41370 724.3 April Andrea Office Visit 04/08/2012 10:00a [facility] Internal Medicine - Ankita Clements M.D. 75333 847.2 [place] 272.2 296.30 Office Visit 01/18/2012 2:40p [facility] Internal Medicine Ankita Clements M.D. 57938 782.7 - [place] 734 847.2 Office Visit 12/07/2011 9:40a [facility] Internal Medicine Ankita Clements M.D. 31223 790.6 - [place] 726.5 727.3 Office Visit 11/13/2011 1:40p [facility] Internal Medicine Ankita Clements M.D. 86948 703.0 - [place] 790.6 Office Visit 10/24/2011 1:15p [facility] 72148 716.97 April Andrea Office Visit 10/15/2011 3:20p [facility] Internal Medicine Selwyn Pillai [id number] 719.45 - Leia Andrea [phone] Office Visit 09/17/2011 2:00p [facility] 39477 716.97 C.M.APrimitivo Andrea Office Visit 08/20/2011 2:15p [facility] M.D. 34882 716.97 C.M.A. 754.69 Office Visit 08/07/2011 3:20p DO Not Use [facility] AT Ankita Clements M.D. 34731 [phone] [facility] Office Visit 06/29/2011 11:20a DO Not Use [facility] [employer] [facility] Ankita Clements M.D. 25291 [phone] [facility] 847.2 401.9 [phone] 272.9 V70.0 Office Visit 06/15/2011 9:40a DO Not Use [employer] [facility] Ankita Clements M.D. 56313 847.2 [facility] 724.3 401.9 825.20 296.30 627.9 v06.1 Plan of Care Future Appointment(s):07/23/2018 11:10 am - Kenzie Will M.D. at [facility] Internal Medicine - [id number]/12/2018 - Kenzie Will M.D.I10 Essential ( primary) hypertensionFollow up:annual medicare [id number] Body mass index ( BMI) 34.0-34.9, adultReferral:[facility], [id number] Encounter for immunization
--- NOTE | 2018-03-14 14:35 | UC ---
Skin Complaint HPI - HPI Summary HPI Summary: Patient is a 62-year-old female presenting to the with diffuse confluent erythematous non-blanchable macules to the right upper shoulder, mid back, bilateral posterior upper legs and right inner arm which has been worsening over the past 1 month. Denies any pruritus until approximately 2 days ago and states it is "mild." Denies any known or recent illness. Denies any fevers, sweats, chills. She states the rash is not bothering her in any way, but would like to understand for this is from. Denies any detergent, soaps or lotions changes. Denies any medication changes. She denies any new environments or sleeping arrangements. - History of Current Complaint Chief Complaint: [facility] Time Seen by Provider: 03/14/18 13:20 Stated Complaint: RASH ON ARMS, LEG, BACK Hx Obtained From: Patient Hx Last Menstrual Period: na ?: No Onset/Duration: Sudden Onset Timing: Constant Onset Severity: Mild Current Severity: Mild Pain Intensity: 1 Pain Scale Used: 0-10 Numeric Aggravating Factor(s): Nothing Alleviating Factor(s): Nothing Associated Signs & Symptoms: Positive: Negative - Allergy/Home Medications Allergies/Adverse Reactions: Allergies Allergy/AdvReac Type Severity Reaction Status Date / Time amoxicillin Allergy Intermediate GI Upset Verified 03/14/18 13:06 codeine Allergy Intermediate See Comment Verified 03/14/18 13:06 ibuprofen Allergy Intermediate See Comment Verified 03/14/18 13:06 nitrofurantoin Allergy Intermediate vomit Verified 03/14/18 13:06 [From Macrobid] tramadol Allergy Intermediate Rash Verified 03/14/18 13:06 sulfamethoxazole Allergy See Comment Verified 03/14/18 13:06 [From Bactrim] trimethoprim [From Bactrim] Allergy See Comment Verified 03/14/18 13:06 Home Medications: Home Medications Metoprolol Succinate XL TAB* [Toprol XL TAB*] 25 mg PO DAILY 03/14/18 [History Confirmed 03/14/18] Review of Systems Constitutional: Negative Skin: Rash Eyes: Negative Respiratory: Negative Cardiovascular: Negative Motor: Negative Neurovascular: Negative Neurological: Negative Is Patient Immunocompromised?: No All Other Systems Reviewed And Are Negative: Yes PMH/Surg Hx/FS Hx/Imm Hx Previously Healthy: Yes Other History Of: Negative For: Anticoagulant Therapy - Surgical History Surgical History: Yes Surgery Procedure, Year, and Place: LEFT and Right BREAST cys REMOVED. tonsillectomy 1957. tubal ligation 1996 - Family History Known Family History: Positive: Diabetes - Social History Occupation: Unemployed Lives: Alone Alcohol Use: None Substance Use Type: None Smoking Status (MU): Former Smoker Have You Smoked in the Last Year: No When Did the Patient Quit Smoking/Using Tobacco: 20 years ago - Immunization History Most Recent Influenza Vaccination: 2014 Most Recent Tetanus Shot: UP TO DATE Most Recent Pneumonia Vaccination: 2011 Physical Exam Triage Information Reviewed: Yes Appearance: Well-Appearing, No Pain Distress, Well-Nourished Vital Signs: Initial Vital Signs Temp 98 F 03/14/18 13:04 Pulse 88 03/14/18 13:04 Resp 17 03/14/18 13:04 BP 119/92 03/14/18 13:04 Pulse Ox 100 03/14/18 13:04 Vital Signs Reviewed: Yes Eye Exam: Normal Eyes: Positive: Conjunctiva Clear Respiratory Exam: Normal Respiratory: Positive: Chest non-tender, Lungs clear Cardiovascular Exam: Normal Cardiovascular: Positive: RRR Musculoskeletal Exam: Normal Musculoskeletal: Positive: Strength Intact Neurological Exam: Normal Skin: Positive: Other - diffuse confluent erythematous non-blanchable macules to the right upper shoulder, mid back, bilateral posterior upper legs and right inner arm Course/Dx - Course Course Of Treatment: On physical examination, there is diffuse confluent erythematous non-blanchable macules/and plaques to the right upper shoulder, mid back, bilateral posterior upper legs and right inner arm. This does not appear to be psoriasis, however it could be a manifestation of atopic dermatitis. There are no darkened papules or hemorrhagic lesions to suggest bedbugs. Discussed with the patient this could also be fungal. However, first course of treatment she'll be topical steroids, systemic steroids as well as allergy medications. If this does not improve her symptoms, we will at that point tried antifungal medication or Selsun Blue for fungal reaction. She will also follow up with a internal control consultant if symptoms fail to improve. - Differential Diagnoses - Skin Complaint Differential Diagnoses: Other - Atopic dermatitis, plaques, environmental exposure reaction, allergic reaction, mycosis fungoides - Diagnoses Provider Diagnoses: Dermatitis Discharge - Sign-Out/Discharge Documenting (check all that apply): Patient Departure - Discharge Plan Condition: Stable Disposition: HOME Prescriptions: predniSONE TAB* [Deltasone 20 MG TAB*] 20 mg PO DAILY #12 tab Triamcinolone 0.5% CREAM(NF) [Triamcinolone 0.5% CREAM*] 1 applic TOPICAL TID # 1 tube Referrals: Kenzie Will MD [Primary Care Provider] - Additional Instructions: Please follow up with a internal control consultant Will treat for systemic skin dermatitis, however, this could be a fungal infection and may warrant further evaluation if symptoms fail to improve with topical and systemic steroids. - Billing Disposition and Condition Condition: STABLE Disposition: Home
== END 2018-03-14 14:05 | disposition home or self-care (01) ==
LOC: UCEAST 12:59
DX: L30.9 Dermatitis, unspecified (principal); Z88.6 Allergy status to analgesic agent; Z88.5 Allergy status to narcotic agent; Z88.0 Allergy status to penicillin; Z88.2 Allergy status to sulfonamides; Z87.891 Personal history of nicotine dependence
CPT/HCPCS: 99212; G0463

== ENCOUNTER 2018-08-28 15:21 | Emergency (ER) | payer OTHER ==
--- NOTE | 2018-08-28 17:03 | ED ---
GI/ HPI - HPI Summary HPI Summary: This patient is a 63 year old F presenting to [facility] with a chief complaint of chronic diarrhea since July of the last year. She states the diarrhea began after her colonoscopy on July 28 for polyp removal, they were benign. She states she has about 8 episodes of diarrhea aday. Today when she went and felt like her body opened up, like a hose. The patient rates the pain 6/10 in severity. Symptoms alleviated by Imodium. Patient denies n/v, melena, blood in the stool, CP, pain with BM, dizziness, ABD pain, light headedness, and recent abx use. She has tried changing her diet as suggested by GI with no success. She states she is a nervous person. - History of Current Complaint Chief Complaint: EDNauseaVomitDiarrh Time Seen by Provider: 08/28/18 16:29 Stated Complaint: DIARRHEA, CHILLS Hx Obtained From: Patient Hx Last Menstrual Period: na Onset/Duration: Still Present Timing: Constant, Lasting Weeks Severity: Moderate Current Severity: Moderate Pain Intensity: 6 Location of Pain: Diffuse Associated Signs and Symptoms: Positive: Negative - n/v, melena, blood in the stool, CP, pain with BM, dizziness, ABD pain, light headedness, and recent abx use - Allergy/Home Medications Allergies/Adverse Reactions: Allergies Allergy/AdvReac Type Severity Reaction Status Date / Time codeine Allergy Intermediate chills, Verified 07/28/18 11:38 near syncope nitrofurantoin Allergy Intermediate vomit Verified 07/28/18 11:38 [From Macrobid] tramadol Allergy Intermediate Rash Verified 07/28/18 11:38 caffeine AdvReac Severe jittery to Verified 07/28/18 11:38 the extreme amoxicillin AdvReac Intermediate GI Upset Verified 07/28/18 11:38 ibuprofen AdvReac Intermediate upset Verified 07/28/18 11:38 stomach sulfamethoxazole AdvReac Intermediate stomach Verified 07/28/18 11:38 [From Bactrim] upset trimethoprim [From Bactrim] AdvReac Intermediate stomach Verified 07/28/18 11:38 upset PMH/Surg Hx/FS Hx/Imm Hx Endocrine/Hematology History: Denies: Hx Anticoagulant Therapy, Hx Blood Disorders, Hx Blood Transfusions, Hx Bone Marrow Disease, Hx Diabetes, Hx Systemic Lupus Erythematosus, Hx Sickle Cell Disease, Hx Thyroid Disease, Hx Anemia, Hx Unexplained Bleeding Cardiovascular History: Reports: Hx Angina, Hx Hypercholesterolemia, Hx Hypertension, Other Cardiovascular Problems/Disorders - Hx HTN Denies: Hx Aneurysm, Hx Angioplasty, Hx Auto Implanted Cardiovert Defib, Hx Cardiac Arrest, Hx Cardiomegaly, Hx Congenital Heart Disease, Hx Congestive Heart Failure, Hx Coronary Artery Disease, Hx Deep Vein Thrombosis, Hx Embolism , Hx Hypotension, Hx Myocardial Infarction, Hx Pacemaker/ICD, Hx Rheumatic Fever , Hx Syncope, Hx Valvular Heart Disease Respiratory History: Reports: Hx Seasonal Allergies Denies: Hx Asthma, Hx Chronic Bronchitis, Hx Chronic Obstructive Pulmonary Disease (COPD), Hx Cystic Fibrosis, Hx Lung Cancer, Hx Pleural Effusion, Hx Pneumonia, Hx Pulmonary Edema, Hx Pulmonary Embolism, Hx Sleep Apnea GI History: Reports: Hx Irritable Bowel Denies: Hx Cirrhosis, Hx Crohn's Disease, Hx Diverticulosis, Hx Gall Bladder Disease, Hx Gastroesophageal Reflux Disease, Hx Gastrointestinal Bleed, Hx Hiatal Hernia, Hx Jaundice, Hx Obstructive Bowel, Hx Ulcer History: Reports: Hx Kidney Stones Denies: Hx Acute Renal Failure, Hx Chronic Renal Failure, Hx Dialysis, Hx Kidney Infection, Hx Renal Disease Musculoskeletal History: Reports: Hx Arthritis, Hx Back Problems, Hx Orthopedic Injury - broken left foot x2, Hx Osteoporosis, Hx Scoliosis Denies: Hx Rheumatoid Arthritis, Hx Bursitis, Hx Congenital Bone Abnormalities, Hx Fibromyalgia, Hx Gout, Hx Tendonitis Sensory History: Reports: Hx Contacts or Glasses - bifocals Denies: Hx Cataracts, Hx Glaucoma, Hx Macular Degeneration, Hx Deafness, Hx Hearing Aid Opthamlomology History: Reports: Hx Contacts or Glasses - bifocals Denies: Hx Cataracts, Hx Glaucoma, Hx Macular Degeneration Psychiatric History: Reports: Hx Anxiety, Hx Depression, Hx Community Mental Health Tx Denies: Hx Attention Deficit Hyperactivity Disorder, Hx Eating Disorder, Hx Panic Disorder, Hx Post Traumatic Stress Disorder, Hx Inpatient Treatment, Hx Schizophrenia, Hx Bipolar Disorder, Hx Suicide Attempt, Hx of Violent Episodes Against Others, Hx Substance Abuse - Cancer History Hx Chemotherapy: No Hx Radiation Therapy: No - Surgical History Surgery Procedure, Year, and Place: LEFT and Right BREAST cys REMOVED. tonsillectomy 1957. tubal ligation 1996 - Immunization History Date of Tetanus Vaccine: Unk Date of Influenza Vaccine: Fall 2012 Infectious Disease History: No Infectious Disease History: Denies: Hx Hepatitis, Hx Tuberculosis, History Other Infectious Disease, Traveled Outside the [place] in Last 30 Days - Family History Known Family History: Positive: Diabetes - Social History Alcohol Use: None Substance Use Type: Reports: None Hx Tobacco Use: No Smoking Status (MU): Former Smoker Have You Smoked in the Last Year: No Review of Systems Negative: Fever, Chills Negative: Erythema Negative: Sore Throat Negative: Chest Pain Negative: Shortness Of Breath, Cough Gastrointestinal: Negative - blood in stool, melena Negative: Abdominal Pain, Vomiting, Nausea Negative: dysuria, hematuria Negative: Myalgia Negative: Rash Neurological: Negative - dizziness and light headedness Positive: Anxious All Other Systems Reviewed And Are Negative: Yes Physical Exam - Summary Physical Exam Summary: Constitutional: Well-developed, Well-nourished, Alert. (-) Distressed Skin: Warm, Dry HENT: Normocephalic; Atraumatic Eyes: Conjunctiva normal Neck: Musculoskeletal ROM normal neck. (-) JVD, (-) Stridor, (-) Tracheal deviation Cardio: Rhythm regular, rate normal, Heart sounds normal; Intact distal pulses; The pedal pulses are 2+ and symmetric. Radial pulses are 2+ and symmetric. (-) Murmur Pulmonary/Chest wall: Effort normal. (-) Respiratory distress, (-) Wheezes, (-) Rales Abd: Soft, (-) epigastric tenderness, (-) Distension, (-) Guarding, (-) Rebound Musculoskeletal: (-) Edema Lymph: (-) Cervical adenopathy Neuro: Alert, Oriented x3 Psych: Mood and affect Normal Triage Information Reviewed: Yes Vital Signs On Initial Exam: Initial Vitals Temp Pulse Resp BP Pulse Ox 97.2 F 106 18 161/106 96 08/28/18 15:29 08/28/18 15:29 08/28/18 15:29 08/28/18 15:29 08/28/18 15:29 Vital Signs Reviewed: Yes Diagnostics - Vital Signs Vital Signs Temp Pulse Resp BP Pulse Ox 08/28/18 16:29 106 152/106 95 08/28/18 15:29 97.2 F 106 18 161/106 96 - Laboratory Result Diagrams: 08/28/18 17:05 08/28/18 17:05 Lab Statement: Any lab studies that have been ordered have been reviewed, and results considered in the medical decision making process. GIGU Course/Dx - Course Assessment/Plan: This patient is a 63 year old F presenting to [facility] with a chief complaint of chronic diarrhea since July of the last year. She states the diarrhea began after her colonoscopy on July 28 for polyp removal, they were benign. She states she has about 8 episodes of diarrhea a day. Today when she went and felt like her body opened up, like a hose. The patient rates the pain 6/10 in severity. Symptoms alleviated by Imodium. Patient denies n/v, melena, blood in the stool, CP, pain with BM, dizziness, ABD pain, light headedness, and recent abx use. She has tried changing her diet as suggested by GI with no success. She states she is a nervous person. I do not suspect C. Diff as there is no ABD pain and her stool is formed. Stool sample sent to the lab confirmed this. In the ED course the patient was given IV fluids. _. Patient will be discharged and fu with PCP. The patient is agreeable with this plan. - Diagnoses Provider Diagnoses: Chronic diarrhea, Dehydration Discharge - Sign-Out/Discharge Documenting (check all that apply): Patient Departure - Discharge Plan Condition: Good Disposition: HOME Patient Education Materials: Irritable Bowel Syndrome (ED), Chronic Diarrhea ( ED) Referrals: Kenzie Will MD [Primary Care Provider] - 2 Days - Billing Disposition and Condition Condition: GOOD Disposition: Home - Attestation Statements Document Initiated by Kong: Yes Documenting Scribe: Manny Conde Provider For Whom Kong is Documenting (Include Credential): Pio Jones MD Scribe Attestation: Manny Shankar scribed for Pio Jones MD on 09/02/18 at 1209. Scribe Documentation Reviewed: Yes Provider Attestation: The documentation as recorded by the Manny salinas accurately reflects the service I personally performed and the decisions made by me, Pio Jones MD Status of Scribe Document: Viewed
[2018-08-28 17:15] LABS: ABS Basophils 0.1 10^3/ul (0-0.2); ABS Eosinophils 0.5 10^3/ul (0-0.6); ABS Lymphocytes 0.8 10^3/ul (1.0-4.8); ABS Monocytes 0.6 10^3/ul (0-0.8); ABS Neutrophils 5.2 10^3/ul (1.5-7.7); ABS Nucleated RBC 0 10^3/ul; Eosinophil % 7.3 %; Hematocrit 46 % (35-47); Hemoglobin 15.3 g/dl (12.0-16.0); Lymphocyte % 11.5 %; Mean Corpuscular HGB Conc 33 g/dl (31-36); Mean Corpuscular Hemoglobin 31 pg (27-31); Mean Corpuscular Volume 93 fL (80-97); Mean Platelet Volume 7.6 fL (7.4-10.4); Nucleated Red Blood Cells % 0.1; Platelet Count 264 10^3/ul (150-450); Red Blood Count 4.92 10^6/ul (4.00-5.40); Red Cell Distribution Width 13 % (10.5-15); White Blood Count 7.2 10^3/ul (3.5-10.8)
[2018-08-28 17:23] LABS: Urine Appearance Cloudy; Urine Bacteria Absent (Absent); Urine Bilirubin Negative (Negative); Urine Blood Negative (Negative); Urine Color Yellow; Urine Glucose Negative (Negative); Urine Ketones Negative (Negative); Urine Nitrite Negative (Negative); Urine Protein Negative (Negative); Urine Red Blood Cell Absent (Absent); Urine Urobilinogen Negative (Negative); Urine White Blood Cell 1+(6-10/hpf) (Absent)
[2018-08-28 17:32] LABS: Albumin 4.2 g/dL (3.2-5.2); Albumin/Globulin Ratio 1.5 (1-3); C Reactive Protein 10.92 mg/L (<8.01); Calcium 9.7 mg/dL (8.6-10.3); EGFR Non-African American 45.7 (>60); Globulin 2.8 g/dL (2-4); Potassium 3.8 mmol/L (3.5-5.0); Total Bilirubin 0.4 mg/dL (0.2-1.0)
[2018-08-28] MEDS ORDERED: NS 0.9% 1000 ML* 1,000 ML IV ONE (18:14)
[2018-08-28 19:34] VITALS: BP 160/97
== END 2018-08-28 19:33 | disposition home or self-care (01) ==
LOC: ED 15:21
DX: R19.7 Diarrhea, unspecified (principal); Z88.0 Allergy status to penicillin; Z87.891 Personal history of nicotine dependence; E86.0 Dehydration
CPT/HCPCS: 36415; 80053; 81003; 81015; 83605; 83690; 85025; 86140; 87045; 87046; 87077; 87086; 87493; 87899; 99283

== ENCOUNTER 2018-12-15 14:02 | Emergency (ER) | payer OTHER ==
[2018-12-15 14:31] VITALS: BP 119/90
--- NOTE | 2018-12-15 15:02 | UC ---
Ear Complaint HPI - HPI Summary HPI Summary: 63 yo female presents with sinus congestion and post nasal drip for the last 2- 3 days. Yesterday developed left ear pain that has continued into today. She has not been taking anything OTC for her symptoms. Denies fever, chills, cough. States that she does get allergies, but has not been taking any allergy medications. - History of Current Complaint Chief Complaint: UCEar Stated Complaint: EAR PAIN Time Seen by Provider: 12/15/18 15:02 Hx Obtained From: Patient Hx Last Menstrual Period: na Onset/Duration: Gradual Onset Severity Initially: Moderate Severity Currently: Moderate Pain Intensity: 7 Pain Scale Used: 0-10 Numeric - Allergies/Home Medications Allergies/Adverse Reactions: Allergies Allergy/AdvReac Type Severity Reaction Status Date / Time codeine Allergy Intermediate chills, Verified 12/15/18 14:31 near syncope nitrofurantoin Allergy Intermediate vomit Verified 12/15/18 14:31 [From Macrobid] tramadol Allergy Intermediate Rash Verified 12/15/18 14:31 caffeine AdvReac Severe jittery to Verified 12/15/18 14:31 the extreme amoxicillin AdvReac Intermediate GI Upset Verified 12/15/18 14:31 ibuprofen AdvReac Intermediate upset Verified 12/15/18 14:31 stomach sulfamethoxazole AdvReac Intermediate stomach Verified 12/15/18 14:31 [From Bactrim] upset trimethoprim [From Bactrim] AdvReac Intermediate stomach Verified 12/15/18 14:31 upset PMH/Surg Hx/FS Hx/Imm Hx Endocrine History: Dyslipidemia Psychological History: Anxiety, Depression, Schizophrenia Other History Of: Negative For: Anticoagulant Therapy - Surgical History Surgical History: Yes Surgery Procedure, Year, and Place: LEFT and Right BREAST cys REMOVED. tonsillectomy 1957. tubal ligation 1996 - Family History Known Family History: Positive: Diabetes - Social History Alcohol Use: None Substance Use Type: None Smoking Status (MU): Former Smoker Have You Smoked in the Last Year: No When Did the Patient Quit Smoking/Using Tobacco: 20 years ago - Immunization History Most Recent Influenza Vaccination: 2014 Most Recent Tetanus Shot: UP TO DATE Most Recent Pneumonia Vaccination: 2011 Review of Systems All Other Systems Reviewed And Are Negative: Yes Constitutional: Positive: Negative Skin: Positive: Negative Eyes: Positive: Negative ENT: Positive: Ear Ache, Sinus Congestion Respiratory: Positive: Negative Cardiovascular: Positive: Negative Neurological: Positive: Negative Psychological: Positive: Negative Physical Exam - Summary Physical Exam Summary: GENERAL: NAD. WDWN. No pain distress. SKIN: No rashes, sores, lesions, or open wounds. HEENT: Head: AT/NC Eyes: EOM intact. Conjunctiva clear without inflammation or discharge. Ears: Hearing grossly normal. TMs intact, no bulging, erythema, or edema. Nose: Nasal mucosa pink and moist. NTTP maxillary and frontal sinus. Throat: Posterior oropharynx without exudates, erythema, or tonsillar enlargement. Uvula midline. NECK: Supple. Nontender. No lymphadenopathy. CHEST: CTAB. No r/r/w. No accessory muscle use. Breathing comfortably and in no distress. CV: Pulses intact. Cap refill <2seconds NEURO: Alert. PSYCH: Age appropriate behavior. Triage Information Reviewed: Yes Vital Signs: Initial Vital Signs Temp 98.1 F 12/15/18 14:28 Pulse 82 12/15/18 14:28 Resp 18 12/15/18 14:28 BP 119/90 12/15/18 14:28 Pulse Ox 97 12/15/18 14:28 Vital Signs Reviewed: Yes Ear Complaint Course/Dx - Course Course Of Treatment: Suspect allergies vs eustachian tube dysfunction. Will rx for allergy medications and decongestants. Advised to f/u if symptoms do not improve. - Differential Dx/Diagnosis Provider Diagnosis: Eustachian tube dysfunction Discharge - Sign-Out/Discharge Documenting (check all that apply): Patient Departure All imaging exams completed and their final reports reviewed: No Studies - Discharge Plan Condition: Stable Disposition: HOME Prescriptions: Fluticasone NASAL SPRAY 50MCG* [Flonase NASAL SPRAY 50MCG*] 2 spray BOTH NARES DAILY #1 btl guaiFENesin ER TAB [Mucinex*] 600 mg PO BID #30 tab.er Loratadine [Claritin] 10 mg PO DAILY #30 tablet Referrals: Kenzie Will MD [Primary Care Provider] - Additional Instructions: If you develop a fever, shortness of breath, chest pain, new or worsening symptoms - please call your PCP or go to the ED immediately. - Billing Disposition and Condition Condition: STABLE Disposition: Home
== END 2018-12-15 15:17 | disposition home or self-care (01) ==
LOC: UCEAST 14:02
DX: H69.82 Other specified disorders of Eustachian tube, left ear (principal); R09.81 Nasal congestion; E78.5 Hyperlipidemia, unspecified; F41.9 Anxiety disorder, unspecified; F32.9 Major depressive disorder, single episode, unspecified; F20.9 Schizophrenia, unspecified; Z88.6 Allergy status to analgesic agent; Z88.1 Allergy status to other antibiotic agents; Z88.5 Allergy status to narcotic agent; Z88.0 Allergy status to penicillin; Z88.2 Allergy status to sulfonamides; Z87.891 Personal history of nicotine dependence
CPT/HCPCS: 99212; G0463

== ENCOUNTER 2019-08-27 10:50 | Emergency (ER) | payer MEDICARE, OTHER ==
--- NOTE | 2019-08-27 11:17 | UC ---
Eye Complaint HPI - HPI Summary HPI Summary: 64 yo female presents with LEFT eye concern. She tells me that for the last 3-4 days she has noticed a small red bump to her left eyelid. She has been using OTC stye eye drops with no relief. She states it is mildly painful. Denies trauma, eye redness or drainage, or vision changes. - History of Current Complaint Stated Complaint: EYE ISSUE Time Seen by Provider: 08/27/19 11:17 Hx Obtained From: Patient Hx Last Menstrual Period: na Onset/Duration: Sudden Onset Timing: Constant Severity Initially: Mild Severity Currently: Mild Pain Intensity: 2 Pain Scale Used: 0-10 Numeric - Allergies/Home Medications Allergies/Adverse Reactions: Allergies Allergy/AdvReac Type Severity Reaction Status Date / Time codeine Allergy Intermediate chills, Verified 08/27/19 11:11 near syncope nitrofurantoin Allergy Intermediate vomit Verified 08/27/19 11:11 [From Macrobid] tramadol Allergy Intermediate Rash Verified 08/27/19 11:11 caffeine AdvReac Severe jittery to Verified 08/27/19 11:11 the extreme amoxicillin AdvReac Intermediate GI Upset Verified 08/27/19 11:11 ibuprofen AdvReac Intermediate upset Verified 08/27/19 11:11 stomach sulfamethoxazole AdvReac Intermediate stomach Verified 08/27/19 11:11 [From Bactrim] upset trimethoprim [From Bactrim] AdvReac Intermediate stomach Verified 08/27/19 11:11 upset PMH/Surg Hx/FS Hx/Imm Hx Endocrine History: Dyslipidemia Psychological History: Anxiety, Depression, Bipolar Disorder Other History Of: Negative For: Anticoagulant Therapy - Surgical History Surgical History: Yes Surgery Procedure, Year, and Place: LEFT and Right BREAST cys REMOVED. tonsillectomy 1957. tubal ligation 1996 - Family History Known Family History: Positive: Diabetes - Social History Alcohol Use: None Substance Use Type: None Smoking Status (MU): Former Smoker Have You Smoked in the Last Year: No When Did the Patient Quit Smoking/Using Tobacco: 20 years ago - Immunization History Most Recent Influenza Vaccination: 2014 Most Recent Tetanus Shot: UP TO DATE Most Recent Pneumonia Vaccination: 2011 Review of Systems All Other Systems Reviewed And Are Negative: No Constitutional: Positive: Negative Skin: Positive: Negative Eyes: Positive: Other - stye left eye ENT: Positive: Negative Respiratory: Positive: Negative Cardiovascular: Positive: Negative Neurological: Positive: Negative Psychological: Positive: Negative Physical Exam - Summary Physical Exam Summary: GENERAL: NAD. WDWN. No pain distress. SKIN: No rashes, sores, lesions, or open wounds. HEENT: Head: AT/NC Eyes: EOM intact. Conjunctiva clear without inflammation or discharge. LEFT EYE: Upper medial eyelid with 2mm stye. Mildly ttp. Ears: Hearing grossly normal. TMs intact, no bulging, erythema, or edema. Nose: Nasal mucosa pink and moist. NTTP maxillary and frontal sinus. Throat: Posterior oropharynx without exudates, erythema, or tonsillar enlargement. Uvula midline. NECK: Supple. Nontender. No lymphadenopathy. NEURO: Alert. PSYCH: Age appropriate behavior. Triage Information Reviewed: Yes Vital Signs: Vital Signs: Temp Pulse Resp BP Pulse Ox 97.5 F 88 18 129/95 100 08/27/19 11:12 08/27/19 11:12 08/27/19 11:12 08/27/19 11:12 08/27/19 11:12 Vital Signs Reviewed: Yes Eye Complaint Course/Dx - Course Course Of Treatment: Stye left eye. Advised to try warm compresses and continue OTC eye drops. - Differential Dx/Diagnosis Provider Diagnosis: Stye Discharge ED - Sign-Out/Discharge Documenting (check all that apply): Patient Departure All imaging exams completed and their final reports reviewed: No Studies - Discharge Plan Condition: Stable Disposition: HOME Prescriptions: Polymyx/Trimethoprim OPTH* [Polytrim OPHTH*] 1 drop LEFT EYE QID #1 btl Patient Education Materials: Stye (ED) Referrals: Kenzie Will MD [Primary Care Provider] - Additional Instructions: If you develop a fever, shortness of breath, chest pain, new or worsening symptoms - please call your PCP or go to the ED immediately. Continue to apply a warm compress - Billing Disposition and Condition Condition: STABLE Disposition: Home
[2019-08-27 11:18] VITALS: BP 129/95
== END 2019-08-27 11:35 | disposition home or self-care (01) ==
LOC: UCEAST 10:50
DX: H00.014 Hordeolum externum left upper eyelid (principal); F31.9 Bipolar disorder, unspecified; Z88.5 Allergy status to narcotic agent; Z88.0 Allergy status to penicillin; Z88.8 Allergy status to other drugs, medicaments and biological substances; Z88.1 Allergy status to other antibiotic agents; Z88.2 Allergy status to sulfonamides; Z87.891 Personal history of nicotine dependence
CPT/HCPCS: 99212; G0463

== ENCOUNTER 2019-09-27 10:51 | Emergency (ER) | payer MEDICARE ==
[2019-09-27 11:21] LABS: ABS Eosinophils 0.1 10^3/ul (0-0.6); ABS Lymphocytes 0.2 10^3/ul (1.0-4.8); ABS Monocytes 0.4 10^3/ul (0-0.8); ABS Neutrophils 3.6 10^3/ul (1.5-7.7); Eosinophil % 1.7 %; Hematocrit 43 % (35-47); Hemoglobin 14.4 g/dL (12.0-16.0); Lymphocyte % 4.4 %; Mean Corpuscular HGB Conc 34 g/dL (31-36); Mean Corpuscular Hemoglobin 32 pg (27-31); Mean Corpuscular Volume 94 fL (80-97); Mean Platelet Volume 7.5 fL (7.4-10.4); Nucleated Red Blood Cells % 0.1; Platelet Count 191 10^3/uL (150-450); Red Blood Count 4.55 10^6 /uL (3.70-4.87); Red Cell Distribution Width 14 % (10-15); White Blood Count 4.3 10^3/uL (3.5-10.8)
[2019-09-27 11:29] LABS: Influenza A Molecular POSITIVE (Negative)
[2019-09-27] MEDS ORDERED: Levalbuterol 1.25MG/0.5ML NEB INH ONE (11:39)
[2019-09-27] MEDS ORDERED: Acetaminophen TAB* 325 MG PO ONE (11:40)
[2019-09-27] MEDS ORDERED: NS 0.9% 1000 ML** 1,000 ML IV ONE (11:40)
[2019-09-27] MEDS ORDERED: Ondansetron INJ* 2 MG/ML VIAL IV ONE (11:41)
--- NOTE | 2019-09-27 11:47 | ED ---
Complex/Multi-Sys Presentation - HPI Summary HPI Summary: Patient is a 64 y/o F presenting to [facility] via EMS with complaints of dizziness, N/V, productive cough, ARENAS and chest pain. The patient states that last evening, 09/26/19, around 2029/2099, she had onset of nausea. Afterwards, the patient began to experience a dizziness that is characterized as room-spinning. She states that she attempted to eat and drink water, but she began to vomit and could not keep anything down. Patient also reports experiencing chest pain that is aggravated by palpation as well as a "tight" cough that is intermittently productive of greenish-white sputum. ARENAS, nausea, and dizziness are still present. EMS had told the patient that she had a fever, temperature was measured temporally. Patient had a flu shot this season. No known sick contacts reported. PMHx of HTN, HLD, depression, and anxiety noted. Hx of cardiac disease and diabetes denied; however, she does note that she has experienced palpitations in the past. Patient states that EMS gave ASA and that she took Tylenol around 0730 09/27/19. She claims that she is not able to take ibuprofen due to kidney dysfunction, stating that her kidneys are "not functioning at full percentage". Patient's last cardiac stress test was when she lived in [place]. Patient is a non-smoker of cigarettes and denies vape usage. Home medications and allergies are reviewed. - History Of Current Complaint Chief Complaint: EDChestPainROMI Time Seen by Provider: 09/27/19 10:53 Hx Obtained From: Patient Onset/Duration: Lasting Hours, Still Present Timing: Hours Location: Pain At: - chest pain, headache Aggravating Factor(s): palpation aggravates Associated Signs And Symptoms: Positive: Dizziness, Headache, Cough, Chest Pain , Nausea, Vomiting, Fever - reported - Allergies/Home Medications Allergies/Adverse Reactions: Allergies Allergy/AdvReac Type Severity Reaction Status Date / Time codeine Allergy Intermediate chills, Verified 09/27/19 11:01 near syncope nitrofurantoin Allergy Intermediate vomit Verified 09/27/19 11:01 [From Macrobid] tramadol Allergy Intermediate Rash Verified 09/27/19 11:01 caffeine AdvReac Severe jittery to Verified 09/27/19 11:01 the extreme amoxicillin AdvReac Intermediate GI Upset Verified 09/27/19 11:01 ibuprofen AdvReac Intermediate upset Verified 09/27/19 11:01 stomach sulfamethoxazole AdvReac Intermediate stomach Verified 09/27/19 11:01 [From Bactrim] upset trimethoprim [From Bactrim] AdvReac Intermediate stomach Verified 09/27/19 11:01 upset PMH/Surg Hx/FS Hx/Imm Hx Previously Healthy: No Endocrine/Hematology History: Denies: Hx Anticoagulant Therapy, Hx Blood Disorders, Hx Blood Transfusions, Hx Bone Marrow Disease, Hx Diabetes, Hx Systemic Lupus Erythematosus, Hx Sickle Cell Disease, Hx Thyroid Disease, Hx Anemia, Hx Unexplained Bleeding Cardiovascular History: Reports: Hx Angina, Hx Hypercholesterolemia, Hx Hypertension, Other Cardiovascular Problems/Disorders - Hx HTN Denies: Hx Aneurysm, Hx Angioplasty, Hx Auto Implanted Cardiovert Defib, Hx Cardiac Arrest, Hx Cardiomegaly, Hx Congenital Heart Disease, Hx Congestive Heart Failure, Hx Coronary Artery Disease, Hx Deep Vein Thrombosis, Hx Embolism , Hx Hypotension, Hx Myocardial Infarction, Hx Pacemaker/ICD, Hx Rheumatic Fever , Hx Syncope, Hx Valvular Heart Disease Respiratory History: Reports: Hx Seasonal Allergies Denies: Hx Asthma, Hx Chronic Bronchitis, Hx Chronic Obstructive Pulmonary Disease (COPD), Hx Cystic Fibrosis, Hx Lung Cancer, Hx Pleural Effusion, Hx Pneumonia, Hx Pulmonary Edema, Hx Pulmonary Embolism, Hx Sleep Apnea GI History: Reports: Hx Irritable Bowel Denies: Hx Cirrhosis, Hx Crohn's Disease, Hx Diverticulosis, Hx Gall Bladder Disease, Hx Gastroesophageal Reflux Disease, Hx Gastrointestinal Bleed, Hx Hiatal Hernia, Hx Jaundice, Hx Obstructive Bowel, Hx Ulcer History: Reports: Hx Kidney Stones Denies: Hx Acute Renal Failure, Hx Chronic Renal Failure, Hx Dialysis, Hx Kidney Infection, Hx Renal Disease Musculoskeletal History: Reports: Hx Arthritis, Hx Back Problems, Hx Orthopedic Injury - broken left foot x2, Hx Osteoporosis, Hx Scoliosis Denies: Hx Rheumatoid Arthritis, Hx Bursitis, Hx Congenital Bone Abnormalities, Hx Fibromyalgia, Hx Gout, Hx Tendonitis Sensory History: Reports: Hx Contacts or Glasses - bifocals Denies: Hx Cataracts, Hx Glaucoma, Hx Macular Degeneration, Hx Deafness, Hx Hearing Aid Opthamlomology History: Reports: Hx Contacts or Glasses - bifocals Denies: Hx Cataracts, Hx Glaucoma, Hx Macular Degeneration Psychiatric History: Reports: Hx Anxiety, Hx Depression, Hx Community Mental Health Tx Denies: Hx Attention Deficit Hyperactivity Disorder, Hx Eating Disorder, Hx Panic Disorder, Hx Post Traumatic Stress Disorder, Hx Inpatient Treatment, Hx Schizophrenia, Hx Bipolar Disorder, Hx Suicide Attempt, Hx of Violent Episodes Against Others, Hx Substance Abuse - Cancer History Hx Chemotherapy: No Hx Radiation Therapy: No - Surgical History Surgery Procedure, Year, and Place: LEFT and Right BREAST cys REMOVED. tonsillectomy 1957. tubal ligation 1996 - Immunization History Date of Tetanus Vaccine: Unk Date of Influenza Vaccine: Fall 2012 Infectious Disease History: No Infectious Disease History: Denies: Hx Hepatitis, Hx Tuberculosis, History Other Infectious Disease, Traveled Outside the [place] in Last 30 Days - Family History Known Family History: Positive: Diabetes - Social History Occupation: Disabled Lives: Alone Alcohol Use: None Substance Use Type: Reports: None Hx Tobacco Use: No Smoking Status (MU): Former Smoker Have You Smoked in the Last Year: No Review of Systems Positive: Fever - reported , Fatigue Eyes: Negative ENT: Negative Positive: Chest Pain Positive: Cough Positive: Vomiting, Nausea Neurological/Mental Status: Other - positive - dizziness Positive: Headache All Other Systems Reviewed And Are Negative: Yes Physical Exam - Summary Physical Exam Summary: Vital Signs Reviewed: Yes A+Ox3, congested, cough Eyes: Conjunctiva Clear, IRMA. EOM intact and full, no nystagmus, no photophobia ENT: Hearing grossly normal right TM obscurred with ceruen, left wnl, turbinates inflammed and boggy, + PND, mmoist, uvula midline, no exudate, no erythema Neck: Positive: Supple Respiratory: Positive: No respiratory distress, No accessory muscle use + CTA throughout no w/r, mild intermittent coarse cough Cardiovascular: RRR nl s1, s2 no m/r CBT <2 sec chest wall pain with direct palp along left sternal border abd soft + BS nt/nd no guarding, no distension Musculoskeletal Exam: WHITTEN x 4 without difficulty Strength Intact, ROM Intact Neurological: Positive: Alert, + sensation throughout 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 Skin: Positive: no rash, no ecchymosis Vital Signs On Initial Exam: Initial Vitals Pulse Pulse Ox 81 96 09/27/19 10:55 09/27/19 10:55 Procedures - Sedation Patient Received Moderate/Deep Sedation with Procedure: No Diagnostics - Vital Signs Vital Signs Temp Pulse Resp BP Pulse Ox 09/27/19 11:26 86 14 115/87 90 02/16/20 11:07 94 09/27/19 11:00 83 16 94 09/27/19 10:58 99.2 F 82 16 127/81 95 09/27/19 10:56 82 127/81 98 09/27/19 10:55 81 96 - Laboratory Lab Results: Lab Results 09/27/19 09/27/19 09/27/19 Range/Units 11:09 11:10 11:11 WBC 4.3 (3.5-10.8) 10^3/uL RBC 4.55 (3.70-4.87) 10^6 /uL Hgb 14.4 (12.0-16.0) g/dL Hct 43 (35-47) % MCV 94 (80-97) fL MCH 32 H (27-31) pg MCHC 34 (31-36) g/dL RDW 14 (10-15) % Plt Count 191 (150-450) 10^3/uL MPV 7.5 (7.4-10.4) fL Neut % (Auto) 84.3 % Lymph % (Auto) 4.4 % [place] % (Auto) 9.1 % Eos % (Auto) 1.7 % Baso % (Auto) 0.5 % Absolute Neuts (auto) 3.6 (1.5-7.7) 10^3/ul Absolute Lymphs (auto) 0.2 L (1.0-4.8) 10^3/ul Absolute Monos (auto) 0.4 (0-0.8) 10^3/ul Absolute Eos (auto) 0.1 (0-0.6) 10^3/ul Absolute Basos (auto) 0.0 (0-0.2) 10^3/ul Absolute Nucleated RBC 0.0 10^3/ul Nucleated RBC % 0.1 D-Dimer, Quantitative (Less Than 230) ng/mL Sodium Pending Potassium Pending Chloride Pending Carbon Dioxide Pending Anion Gap Pending BUN Pending Creatinine Pending Est GFR ( Amer) Pending Est GFR (Non-Af Amer) Pending BUN/Creatinine Ratio Pending Glucose Pending Calcium Pending Magnesium Pending Total Bilirubin Pending AST Pending ALT Pending Alkaline Phosphatase Pending Troponin I 0.00 (<0.03) ng/mL B-Natriuretic Peptide (<=100) pg/mL Total Protein Pending Albumin Pending Globulin Pending Albumin/Globulin Ratio Pending Influenza A (Rapid) Positive H (Negative) Influenza B (Rapid) Not Reportable 09/27/19 09/27/19 Range/Units 11:11 11:12 WBC (3.5-10.8) 10^3/uL RBC (3.70-4.87) 10^6 /uL Hgb (12.0-16.0) g/dL Hct (35-47) % MCV (80-97) fL MCH (27-31) pg MCHC (31-36) g/dL RDW (10-15) % Plt Count (150-450) 10^3/uL MPV (7.4-10.4) fL Neut % (Auto) % Lymph % (Auto) % [place] % (Auto) % Eos % (Auto) % Baso % (Auto) % Absolute Neuts (auto) (1.5-7.7) 10^3/ul Absolute Lymphs (auto) (1.0-4.8) 10^3/ul Absolute Monos (auto) (0-0.8) 10^3/ul Absolute Eos (auto) (0-0.6) 10^3/ul Absolute Basos (auto) (0-0.2) 10^3/ul Absolute Nucleated RBC 10^3/ul Nucleated RBC % D-Dimer, Quantitative 208 (Less Than 230) ng/mL Sodium Potassium Chloride Carbon Dioxide Anion Gap BUN Creatinine Est GFR ( Amer) Est GFR (Non-Af Amer) BUN/Creatinine Ratio Glucose Calcium Magnesium Total Bilirubin AST ALT Alkaline Phosphatase Troponin I (<0.03) ng/mL B-Natriuretic Peptide 33 (<=100) pg/mL Total Protein Albumin Globulin Albumin/Globulin Ratio Influenza A (Rapid) (Negative) Influenza B (Rapid) Result Diagrams: 09/27/19 11:11 09/27/19 11:09 Lab Statement: Any lab studies that have been ordered have been reviewed, and results considered in the medical decision making process. - Radiology CXR Radiology Interpretation Completed By: Radiologist Summary of Radiographic Findings: IMPRESSION: NO ACTIVE CARDIOPULMONARY DISEASE IS NOTED. THIS REPORT WAS REVIEWED BY ED PHYSICIAN. - EKG 1125 Cardiac Rate: NL - rate of 83 BPM EKG Rhythm: Sinus Rhythm Summary of EKG Findings: EKG showed NSR with rate of 83 BPM, no acute ST-T wave changes. ED physician has reviewed and interpreted this EKG. Re-Evaluation - Re-Evaluation First Eval Re-Evaluation Time: 12:35 Change: Improved Comment: Patient reports improvement of Sx after medications and nebulizer nausea resolved. PT will trial po - crackers, lana crystal Friend at bedside She is influenza A positive. Results of workup discussed with the patient, she will be prescribed Tamiflu and albuterol inhaler and then discharged to home with PCP followup. reviewd with pt secretion precautions. humidified air. APAP. return precautions Complex Multi-Symp Course/Dx Course Of Treatment: Pt presents to ED by EMS with reports of cough, fatigue, dizziness, nausea, chest pain worse with coughing and fevers. Pt has taken APAP at home Given ASA and ntg by EMS Pt states symptoms increasing x 24 hours. On exam, slight fever. Pt with congestion, cough, reproducible chest wall pain. Will check labs including trop, ekg, cxr, influenza. suspect sx are infection > cardiac. APAP. IVF. antiemtic. close reassessment - Diagnoses Provider Diagnoses: Influenza Discharge ED - Sign-Out/Discharge Documenting (check all that apply): Patient Departure - Discharge Plan Condition: Stable Disposition: HOME Prescriptions: Albuterol HFA INHALER* [Ventolin HFA Inhaler*] 2 puff INH Q4H PRN #1 mdi PRN Reason: wheeze Oseltamivir Phosphate [Tamiflu] 75 mg PO BID #9 capsule Patient Education Materials: Influenza (ED) Referrals: Kenzie Will MD [Primary Care Provider] - Additional Instructions: - Stay well hydrated. Drink plenty of non-alcoholic, non-caffinated beverages. For the first 6 hours, eat and drink clears (water, lana crystal, soup broth, jello, popsicles, Gatorade). If you tolerate this okay, add bland foods such as dry toast, scrambled eggs, crackers. Wait until you are feeling better for 24 hours before eating spicy food, acidic food, tomato based food, fried food. - Take Tamiflu as prescribed until gone - Okay to take Tylenol every 6 hours for pain or fever Take with food. Do NOT take for more than 4-5 days. - These infections are spread by secretions - do NOT share eating or drinking utensils - clean items you share with other people such as cell phones, computer mouse, TV remote, computer tablets,etc. Once you start to feel better, change your toothbrush and your pillowcase. - get plenty of restful sleep - humidify the air in the room where you sleep - boil water, run a hot steam shower, vaporizer, cups of water by heat register - okay to take over the counter decongestant and cough medication - Use the inhaler - 2 puffs every 4 hours today and tomorrow, then every 4 hours as needed - contact your doctor or return with questions or concerns - Billing Disposition and Condition Condition: STABLE Disposition: Home - Attestation Statements Document Initiated by Kong: Yes Documenting Scribe: KAYLA BALLESTEROS Provider For Whom Kong is Documenting (Include Credential): CARLOS CHE MD Scribe Attestation: IKAYLA, scribed for CARLOS CHE MD on 09/28/19 at 1541. Scribe Documentation Reviewed: Yes Provider Attestation: The documentation as recorded by the KAYLA salinas accurately reflects the service I personally performed and the decisions made by me, CARLOS CHE MD Status of Scribe Document: Viewed
[2019-09-27 12:19] LABS: Albumin 3.9 g/dL (3.2-5.2); Calcium 9.1 mg/dL (8.6-10.3); Potassium 3.8 mmol/L (3.5-5.0); Total Bilirubin 0.4 mg/dL (0.2-1.0)
[2019-09-27 12:24] LABS: Albumin/Globulin Ratio 1.6 (1-3); BUN/Creatinine Ratio 10.1 (8-20); EGFR African American 55.1 (>60); EGFR Non-African American 45.5 (>60); Globulin 2.5 g/dL (2-4); Total Protein 6.4 g/dL (6.4-8.9)
[2019-09-27] MEDS ORDERED: Oseltamivir CAP* 75 MG CAP PO ONE (12:45)
[2019-09-27 13:16] VITALS: BP 129/75
== END 2019-09-27 13:15 | disposition home or self-care (01) ==
LOC: ED 10:51
DX: J10.1 Influenza due to other identified influenza virus with other respiratory manifestations (principal); R42 Dizziness and giddiness; R07.89 Other chest pain; R11.2 Nausea with vomiting, unspecified; I10 Essential (primary) hypertension; Z88.6 Allergy status to analgesic agent; Z88.1 Allergy status to other antibiotic agents; Z88.5 Allergy status to narcotic agent; Z88.0 Allergy status to penicillin; Z88.2 Allergy status to sulfonamides; Z91.048 Other nonmedicinal substance allergy status; Z87.891 Personal history of nicotine dependence
CPT/HCPCS: 36415; 71045; 80053; 83735; 83880; 84484; 85025; 85379; 93005; 96361; 96374; 99284; A9270-GY; J2405

== ENCOUNTER 2019-10-12 13:59 | Emergency (ER) | payer MEDICARE, MEDICAID ==
[2019-10-12 14:11] VITALS: BP 00/00
--- NOTE | 2019-10-12 15:00 | UC ---
Respiratory Complaint HPI - HPI Summary HPI Summary: 64-year-old female comes in with a chief complaint of chest congestion and shortness of breath. On September 27, 2019 patient started with feeling ill and difficulty breathing. She was seen in the emergency department and diagnosed with influenza. He was treated for influenza. She did receive an albuterol inhaler from that episode. It does help some with the symptoms however she does not like using the medication. Patient reports improving from that illness however and the Last several days she started to feel more ill more congestion in her chest. - History of Current Complaint Chief Complaint: UCRespiratory Stated Complaint: COUGH Time Seen by Provider: 10/12/19 14:44 Hx Last Menstrual Period: na Pain Intensity: 5 - Allergies/Home Medications Allergies/Adverse Reactions: Allergies Allergy/AdvReac Type Severity Reaction Status Date / Time codeine Allergy Intermediate chills, Verified 10/12/19 14:12 near syncope nitrofurantoin Allergy Intermediate vomit Verified 10/12/19 14:12 [From Macrobid] tramadol Allergy Intermediate Rash Verified 10/12/19 14:12 caffeine AdvReac Severe jittery to Verified 10/12/19 14:12 the extreme amoxicillin AdvReac Intermediate GI Upset Verified 10/12/19 14:12 ibuprofen AdvReac Intermediate upset Verified 10/12/19 14:12 stomach sulfamethoxazole AdvReac Intermediate stomach Verified 10/12/19 14:12 [From Bactrim] upset trimethoprim [From Bactrim] AdvReac Intermediate stomach Verified 10/12/19 14:12 upset Home Medications: Home Medications Atorvastatin* [Lipitor*] 40 mg PO BEDTIME 08/03/12 [History Confirmed 10/12/19] Sertraline* [Zoloft*] 200 mg PO DAILY 08/03/12 [History Confirmed 10/12/19] buPROPion TAB* [Wellbutrin TAB*] 150 mg PO BID 08/03/12 [History Confirmed 10/11] clonazePAM TAB(*) [Klonopin TAB(*)] 0.25 mg PO BID 08/03/12 [History Confirmed 10/12/19] OLANzapine TAB* [Zyprexa 2.5 MG TAB*] 2.5 mg PO BEDTIME 09/30/17 [History Confirmed 10/12/19] Metoprolol Succinate XL TAB* [Toprol XL TAB*] 25 mg PO DAILY 03/14/18 [History Confirmed 10/12/19] Calcium Carbonate/Vitamin D3 [Calcium 500 + Vit D Caplet] 1 tab PO TID 07/23/18 [History Confirmed 10/12/19] L.acidoph,Paracasei, B.lactis [Probiotic] 1 cap PO DAILY 07/23/18 [History Confirmed 10/12/19] Lactase [Lactaid Fast Act] 9,000 unit PO ONCE PRN 07/23/18 [History Confirmed ] Azithromyxin ANANDA (NF) [Z-Ananda (Zithromax) 250 mg tabs #6] 2 tab PO .TODAY, THEN 1 DAILY #6 tab 10/12/19 [Rx] Magnesium Oxide [Magnesium] 250 mg PO DAILY 10/12/19 [History Confirmed 10/12/19 ] PMH/Surg Hx/FS Hx/Imm Hx Previously Healthy: Yes Endocrine History: Dyslipidemia Cardiovascular History: Hypertension Other History Of: Negative For: Anticoagulant Therapy - Surgical History Surgical History: Yes Surgery Procedure, Year, and Place: LEFT and Right BREAST cysts REMOVED. tonsillectomy 1957. tubal ligation 1996 - Family History Known Family History: Positive: Diabetes - Social History Alcohol Use: None Substance Use Type: None Smoking Status (MU): Former Smoker Have You Smoked in the Last Year: No When Did the Patient Quit Smoking/Using Tobacco: 20 years ago Household Exposure Type: Cigarettes - Immunization History Most Recent Influenza Vaccination: 2014 Most Recent Tetanus Shot: UP TO DATE Most Recent Pneumonia Vaccination: 2011 Review of Systems All Other Systems Reviewed And Are Negative: Yes Constitutional: Positive: Other - SEE HPI Skin: Positive: Negative Eyes: Positive: Negative ENT: Positive: Negative Respiratory: Positive: Other - SEE HPI Cardiovascular: Positive: Other - SEE HPI Gastrointestinal: Positive: Negative Neurovascular: Positive: Negative Musculoskeletal: Positive: Negative Neurological/Mental Status: Positive: Negative Psychological: Positive: Negative Is Patient Immunocompromised?: No Physical Exam Triage Information Reviewed: Yes Appearance: Well-Appearing, No Pain Distress, Well-Nourished Vital Signs: Initial Vital Signs Temp 99.6 F 10/12/19 14:06 Pulse 94 10/12/19 14:06 Resp 18 10/12/19 14:06 BP 00/00 10/12/19 14:06 Pulse Ox 99 10/12/19 14:06 Vital Signs Reviewed: Yes Eye Exam: Normal Eyes: Positive: Conjunctiva Clear ENT: Positive: Pharynx normal, TMs normal Neck: Positive: Supple Respiratory: Positive: Lungs clear, Normal breath sounds, No respiratory distress Cardiovascular: Positive: RRR Musculoskeletal: Positive: Strength Intact, ROM Intact, No Edema - No calf tenderness. 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 2 views of the chest demonstrate no mediastinal shift. Heart is of normal size and configuration. Lung arthur are clear. IMPRESSION: No active cardiopulmonary disease is noted. _ <Electronically signed by Ling Gan MD in OV> 10/12/19 1502 Dictated By: Ling Gan MD Dictated Date/Time: 10/12/19 1502 Transcribed Date/Time: 10/12/19 1502 Copy to: CC:Kenzie Will MD; Sami Panda MD Imaging - [facility] Imaging - [facility] Imaging - [facility] [address] [place] [id number] [place] [id number] ph ([phone]) ph ([phone]) ph ([phone]) End of Report Content I discussed the x-rays with the patient. Patient's been ill for about 2 weeks now increasing the probability of a bacterial bronchitis. Patient had an albuterol nebulizer here in clinic and does feel improved after that. Recommended using her albuterol inhaler as needed and increasing fluid intake and also exposure to steam such as in the shower did help loosen her secretions. Bielby to follow-up with primary care doctor reevaluate sooner if worse. Also discussed if patient was not getting better she felt worse with is any concern of any cardiac problems she needed to go directly to the emergency department. - Differential Dx/Diagnosis Provider Diagnosis: Bronchitis with bronchospasm Discharge ED - Sign-Out/Discharge Documenting (check all that apply): Patient Departure All imaging exams completed and their final reports reviewed: Yes - Discharge Plan Condition: Stable Disposition: HOME Prescriptions: Azithromyxin ANANDA (NF) [Z-Ananda (Zithromax) 250 mg tabs #6] 2 tab PO .TODAY, THEN 1 DAILY #6 tab Patient Education Materials: Acute Bronchitis (ED), Bronchospasm (ED) Referrals: Kenzie Will MD [Primary Care Provider] - Additional Instructions: FOLLOW UP WITH YOUR DOCTOR IF NOT COMPLETELY IMPROVED. GO TO THE EMERGENCY DEPARTMENT IF WORSE; CHEST PAIN, SHORTNESS OF BREATH, YOU FEEL ILL OR ANY QUESTIONS OR CONCERNS. - Billing Disposition and Condition Condition: STABLE Disposition: Home
[2019-10-12] MEDS ORDERED: Albuterol 2.5 MG/3 ML NEB.SOL* (0.083%) INH ONE (15:03)
== END 2019-10-12 15:45 | disposition home or self-care (01) ==
LOC: UCEAST 13:59
DX: J40 Bronchitis, not specified as acute or chronic (principal); J98.01 Acute bronchospasm; Z87.891 Personal history of nicotine dependence; I10 Essential (primary) hypertension; Z88.5 Allergy status to narcotic agent; Z88.1 Allergy status to other antibiotic agents; Z88.0 Allergy status to penicillin; Z88.8 Allergy status to other drugs, medicaments and biological substances; Z88.2 Allergy status to sulfonamides; Z88.6 Allergy status to analgesic agent
CPT/HCPCS: 71046; 99212; G0463

== ENCOUNTER 2024-03-31 07:18 | Inpatient (IN) ==
[2024-03-31 09:16] LABS: ABS Basophils 0.1 10^3/uL (0.0-0.1); ABS Lymphocytes 0.5 10^3/uL (1.0-4.8); ABS Monocytes 1.1 10^3/uL (0.0-0.9); ABS Neutrophils 9.4 10^3/uL (1.5-7.6); ABS Nucleated RBC 0.01 10^3/ul; Eosinophil % 0.4 %; Hematocrit 38.7 % (35-45); Hemoglobin 12.9 g/dL (11.5-14.3); Lymphocyte % 4.4 %; Mean Corpuscular Hemoglobin 30.9 pg (27-33); Mean Corpuscular Hgb Conc 33.3 g/dL (31-36); Mean Corpuscular Volume 92.7 fL (80-97); Mean Platelet Volume 7.2 fL (7.5-11.2); Nucleated Red Blood Cells % 0.1 %/100WBC (0.0-0.8); Platelet Count 274 10^3/uL (150-450); Red Blood Count 4.17 10^6/uL (3.63-4.92); Red Cell Distribution Width 13.7 % (12-17)
[2024-03-31] MEDS: Ondansetron 4 mg VIAL 2 MG/ML 2 ml VIAL IV ONE (09:16)
[2024-03-31] MEDS: Acetaminophen IV 1 GM/100ML 1,000 MG/100 ML BAG IV ONE (09:21)
[2024-03-31 09:50] LABS: High Sens Troponin Baseline 4 pg/mL (<15)
[2024-03-31 09:56] LABS: ALT 21 U/L (7-52); AST 17 U/L (13-39); Albumin 3.5 g/dL (3.2-5.2); Albumin/Globulin Ratio 1.5 (1-3); Alkaline Phosphatase 84 U/L (35-149); Anion Gap 12 mmol/L (2-16); Blood Urea Nitrogen 14 mg/dL (6-24); C Reactive Protein 129.42 mg/L (<8.01); CO2 Carbon Dioxide 25 mmol/L (22-32); Calcium 9.1 mg/dL (8.6-10.3); Chloride 104 mmol/L (101-111); Creatinine, Serum 1.27 mg/dL (0.51-0.95); Globulin 2.3 g/dL (2-4); Glucose 108 mg/dL (70-100); Lipase < 10 U/L (11.0-82.0); Potassium 3.8 mmol/L (3.5-5.0); Sodium 141 mmol/L (135-145); Total Bilirubin 1.1 mg/dL (0.2-1.0); Total Protein 5.8 g/dL (6.4-8.9); eGFR CKD-EPI 45.8 (>60)
[2024-03-31 10:44] LABS: High Sensitivity Troponin 1 Hr 4 pg/mL (<15)
[2024-03-31 11:33] LABS: Erythrocyte Sed Rate 62 mm/Hr (0-29)
[2024-03-31] MEDS ORDERED: HYDROmorphone 0.5 MG/0.5 ML SYRINGE IV PRN (20:58)
[2024-03-31] MEDS ORDERED: ceFAZolin 1 GM ADVAN 1 GM in NS 0.9% 50 ML 50 ML IVPB SCH (21:00)
[2024-03-31] MEDS ORDERED: ceFAZolin 1 GM ADVAN 2 GM in NS 0.9% 50 ML 50 ML IVPB SCH (21:30)
[2024-03-31] MEDS: ceFAZolin 2 GM PREMIX 2 GM/50 ML BAG IV SCH (22:39)
[2024-03-31] MEDS ORDERED: CMCS: Lactase Enzyme (NF) 3,000 UNIT TAB PO PRN (23:50)
[2024-04-01 06:36] LABS: ABS Lymphocytes 0.6 10^3/uL (1.0-4.8); ABS Monocytes 0.9 10^3/uL (0.0-0.9); ABS Neutrophils 9.1 10^3/uL (1.5-7.6); Eosinophil % 0.2 %; Hematocrit 36.1 % (35-45); Hemoglobin 12.3 g/dL (11.5-14.3); Lymphocyte % 5.3 %; Mean Corpuscular Hemoglobin 31.6 pg (27-33); Mean Corpuscular Hgb Conc 34.2 g/dL (31-36); Mean Corpuscular Volume 92.2 fL (80-97); Mean Platelet Volume 7.2 fL (7.5-11.2); Platelet Count 276 10^3/uL (150-450); Red Blood Count 3.91 10^6/uL (3.63-4.92); Red Cell Distribution Width 14.3 % (12-17); White Blood Count 10.7 10^3/uL (3.8-11.8)
[2024-04-01 07:51] LABS: C Reactive Protein 290.76 mg/L (<8.01); Calcium 8.5 mg/dL (8.6-10.3); Creatinine, Serum 1.1 mg/dL (0.51-0.95); Potassium 3.6 mmol/L (3.5-5.0); eGFR CKD-EPI 54.4 (>60)
[2024-04-01] MEDS ORDERED: Vancomycin per Pharmacy 1 EA NOTE FOLLOW UP SCH (08:00)
[2024-04-01] MEDS: Cefepime 2 GM in Dextrose 2 GM/50 ML BAG IV SCH ×2 (08:12→22:49)
[2024-04-01] MEDS: Vancomycin 1000 MG in NS 0.9% 250 ML IVPB ONE (08:56)
[2024-04-01] MEDS ORDERED: Lactase Enzyme (NF) 3,000 UNIT TAB PO PRN (09:09)
[2024-04-01 10:17] LABS: Erythrocyte Sed Rate 77 mm/Hr (0-29)
[2024-04-01] MEDS ORDERED: Ondansetron 4 mg VIAL 2 MG/ML 2 ml VIAL ONE (12:59)
[2024-04-01] MEDS ORDERED: Midazolam 2 mg/2 ml VIAL 1 mg/ml 2 ml VIAL (2 mg) ONE (12:59)
[2024-04-01] MEDS ORDERED: Dexamethasone IV 4 MG/ML VIAL 1 ml VIAL ONE (12:59)
[2024-04-01] MEDS ORDERED: fentaNYL 100 mcg/2 ml 50 MCG/ML VIAL ONE ×2 (12:59→14:21)
[2024-04-01] MEDS ORDERED: Propofol 10 MG/ML 20 ML BTL ONE (12:59)
[2024-04-01] MEDS ORDERED: Lidocaine 2% PF 5 ML VIAL ONE (12:59)
[2024-04-01] MEDS ORDERED: Sterile Water for Inj 10 ML ONE ×2 (13:35→13:38)
[2024-04-01] MEDS ORDERED: ceFAZolin VIAL VIAL ONE ×2 (13:36→13:37)
[2024-04-01] MEDS ORDERED: HYDROmorphone 0.5 MG/0.5 ML SYRINGE ONE (14:26)
[2024-04-01] MEDS ORDERED: Acetaminophen IV 1 GM/100ML 1,000 MG/100 ML BAG IV ONE (14:28)
[2024-04-01] MEDS ORDERED: fentaNYL 100 mcg/2 ml 50 MCG/ML VIAL IV PRN (15:48)
[2024-04-01] MEDS ORDERED: Naloxone 0.4 mg VIAL 0.4 mg/ml 1 ml VIAL IV PRN (15:48)
[2024-04-01] MEDS ORDERED: Vancomycin 500 MG in NS 0.9% 250 ML IVPB ONE (17:00)
[2024-04-01] MEDS: Lactated Ringers 1000 ml BAG 1,000 ML IV SCH (17:06)
[2024-04-01] MEDS: Calcium/Vitamin D TAB 250/125 TAB PO SCH (21:09)
[2024-04-02 05:59] LABS: ABS Lymphocytes 0.3 10^3/uL (1.0-4.8); ABS Monocytes 0.5 10^3/uL (0.0-0.9); ABS Neutrophils 6.4 10^3/uL (1.5-7.6); Eosinophil % 0.1 %; Hematocrit 32.1 % (35-45); Hemoglobin 10.7 g/dL (11.5-14.3); Lymphocyte % 4.5 %; Mean Corpuscular Hgb Conc 33.4 g/dL (31-36); Mean Corpuscular Volume 92.6 fL (80-97); Mean Platelet Volume 7.2 fL (7.5-11.2); Platelet Count 265 10^3/uL (150-450); Red Blood Count 3.47 10^6/uL (3.63-4.92); White Blood Count 7.2 10^3/uL (3.8-11.8)
[2024-04-02] MEDS ORDERED: Alendronate 70 mg TAB (NF) PO SCH (06:00)
[2024-04-02 06:23] LABS: Calcium 8.1 mg/dL (8.6-10.3); Creatinine, Serum 0.87 mg/dL (0.51-0.95); Magnesium 1.9 mg/dL (1.9-2.7); Potassium 3.6 mmol/L (3.5-5.0); eGFR CKD-EPI 72.1 (>60)
[2024-04-02] MEDS: Vancomycin 1,250 MG in NS 0.9% 250 ml 250 ML IVPB SCH (06:26)
[2024-04-02 08:21] LABS: C Reactive Protein 243.76 mg/L (<8.01)
[2024-04-02] MEDS: Magnesium Sulfate IV 1GM/100ML 1 GM/100 ML BAG IV ONE (09:36)
[2024-04-02] MEDS: Iodixanol (CONTRAST) 320 MG/ML 100 ML SDV IV ONE (13:59)
[2024-04-02] MEDS: Enoxaparin 40 MG/0.4 ML SYR SUBCUT SCH (14:01)
[2024-04-03 07:02] LABS: ABS Basophils 0.1 10^3/uL (0.0-0.1); ABS Lymphocytes 0.9 10^3/uL (1.0-4.8); ABS Monocytes 0.4 10^3/uL (0.0-0.9); ABS Neutrophils 5.6 10^3/uL (1.5-7.6); Eosinophil % 0.7 %; Hematocrit 36.8 % (35-45); Hemoglobin 12.2 g/dL (11.5-14.3); Lymphocyte % 12.3 %; Mean Corpuscular Hemoglobin 31.3 pg (27-33); Mean Corpuscular Hgb Conc 33.2 g/dL (31-36); Mean Corpuscular Volume 94.4 fL (80-97); Mean Platelet Volume 7.2 fL (7.5-11.2); Platelet Count 371 10^3/uL (150-450)
[2024-04-03 07:20] LABS: Calcium 8.4 mg/dL (8.6-10.3); Creatinine, Serum 0.95 mg/dL (0.51-0.95); Magnesium 2.2 mg/dL (1.9-2.7); Potassium 3.8 mmol/L (3.5-5.0); eGFR CKD-EPI 64.9 (>60)
[2024-04-03 07:42] LABS: C Reactive Protein 142.96 mg/L (<8.01)
[2024-04-03] MEDS: Magnesium Hydroxide LIQ 30 ML UDC PO PRN (16:36)
[2024-04-03] MEDS: Docusate LIQ 100 MG/10 ML UDC PO PRN (16:36)
[2024-04-04 06:33] LABS: Creatinine, Serum 0.93 mg/dL (0.51-0.95); Potassium 3.7 mmol/L (3.5-5.0)
[2024-04-04 06:34] LABS: Calcium 8.4 mg/dL (8.6-10.3); Magnesium 2.3 mg/dL (1.9-2.7); eGFR CKD-EPI 66.5 (>60)
[2024-04-04] MEDS: Vancomycin Trough Check NOTE FOLLOW UP ONE (07:41)
[2024-04-04] MEDS: Polyethylene Glycol 3350 17 GM PACKET PO SCH (09:01)
[2024-04-05 08:35] LABS: ABS Basophils 0.1 10^3/uL (0.0-0.1); ABS Eosinophils 0.2 10^3/uL (0.0-0.5); ABS Lymphocytes 0.9 10^3/uL (1.0-4.8); ABS Monocytes 0.4 10^3/uL (0.0-0.9); ABS Neutrophils 4.8 10^3/uL (1.5-7.6); Hematocrit 37.7 % (35-45); Hemoglobin 12.7 g/dL (11.5-14.3); Lymphocyte % 14.4 %; Mean Corpuscular Hemoglobin 31.5 pg (27-33); Mean Corpuscular Hgb Conc 33.8 g/dL (31-36); Mean Platelet Volume 6.9 fL (7.5-11.2); Nucleated Red Blood Cells % 0.1 %/100WBC (0.0-0.8); Platelet Count 346 10^3/uL (150-450); Red Blood Count 4.05 10^6/uL (3.63-4.92); Red Cell Distribution Width 14.1 % (12-17); White Blood Count 6.4 10^3/uL (3.8-11.8)
[2024-04-05 08:58] LABS: Calcium 8.5 mg/dL (8.6-10.3); Creatinine, Serum 0.92 mg/dL (0.51-0.95); Magnesium 2.3 mg/dL (1.9-2.7); Potassium 4.1 mmol/L (3.5-5.0); eGFR CKD-EPI 67.4 (>60)
[2024-04-05 18:39] LABS: C Reactive Protein 65.67 mg/L (<8.01)
[2024-04-06] MEDS: Cefepime 2 GM in Dextrose 2 GM/50 ML BAG IV SCH (15:14)
[2024-04-06] MEDS ORDERED: Vancomycin 1,000 MG in NS 0.9% 250 ml 250 ML IVPB SCH (17:43)
[2024-04-06] MEDS ORDERED: Vancomycin per Pharmacy 1 EA NOTE FOLLOW UP PRN (18:01)
[2024-04-06] MEDS: cefTRIAXone 2 gm/50 mL D5W 2 GM/50 ML BAG IV SCH (18:10)
[2024-04-06] MEDS: Vancomycin 1,250 MG in NS 0.9% 250 ml 250 ML IVPB ONE (19:06)
[2024-04-07] MEDS ORDERED: Vancomycin Trough Check NOTE FOLLOW UP ONE (05:30)
[2024-04-07] MEDS: Vancomycin 750 MG in NS 0.9% 250 ML IVPB SCH (06:13)
[2024-04-07 07:03] LABS: Creatinine, Serum 0.83 mg/dL (0.51-0.95); eGFR CKD-EPI 76.3 (>60)
[2024-04-07 08:46] LABS: Hemoglobin 11.2 g/dL (11.5-14.3); Mean Corpuscular Hemoglobin 31.3 pg (27-33); Mean Corpuscular Hgb Conc 33.9 g/dL (31-36); Mean Corpuscular Volume 92.4 fL (80-97); Mean Platelet Volume 7.1 fL (7.5-11.2); Platelet Count 252 10^3/uL (150-450); Red Blood Count 3.57 10^6/uL (3.63-4.92); Red Cell Distribution Width 14.1 % (12-17); White Blood Count 4.9 10^3/uL (3.8-11.8)
[2024-04-07 08:55] LABS: Calcium 8.3 mg/dL (8.6-10.3); Creatinine, Serum 0.88 mg/dL (0.51-0.95); Potassium 3.8 mmol/L (3.5-5.0); eGFR CKD-EPI 71.1 (>60)
[2024-04-07 09:32] LABS: ABS Eosinophils 0.2 10^3/uL (0.0-0.5); ABS Lymphocytes 0.6 10^3/uL (1.0-4.8); ABS Monocytes 0.4 10^3/uL (0.0-0.9); ABS Neutrophils 3.7 10^3/uL (1.5-7.6); Eosinophil % 3.4 %; Lymphocyte % 11.4 %; Nucleated Red Blood Cells % 0.1 %/100WBC (0.0-0.8)
[2024-04-08 06:23] LABS: Creatinine, Serum 0.86 mg/dL (0.51-0.95); Vancomycin Trough 20.4 mcg/mL; eGFR CKD-EPI 73.1 (>60)
[2024-04-08 07:22] LABS: Hemoglobin 11.2 g/dL (11.5-14.3); Mean Corpuscular Hemoglobin 31.3 pg (27-33); Mean Corpuscular Volume 92.3 fL (80-97); Platelet Count 257 10^3/uL (150-450); Red Blood Count 3.57 10^6/uL (3.63-4.92); Red Cell Distribution Width 14.3 % (12-17); White Blood Count 6.2 10^3/uL (3.8-11.8)
[2024-04-08 07:42] LABS: ABS Eosinophils 0.2 10^3/uL (0.0-0.5); ABS Lymphocytes 0.6 10^3/uL (1.0-4.8); ABS Monocytes 0.5 10^3/uL (0.0-0.9); ABS Neutrophils 4.8 10^3/uL (1.5-7.6); Eosinophil % 3.2 %; Lymphocyte % 9.6 %
[2024-04-08] MEDS: Vancomycin Trough Check NOTE FOLLOW UP ONE (08:00)
[2024-04-08] MEDS ORDERED: DAPTOmycin SDV 500 MG in NS 0.9% 50 ML 50 ML IVPB SCH (18:00)
[2024-04-08 18:04] LABS: C Reactive Protein 63.65 mg/L (<8.01)
[2024-04-08 19:13] LABS: ABS Eosinophils 0.2 10^3/uL (0.0-0.5); ABS Lymphocytes 0.6 10^3/uL (1.0-4.8); ABS Monocytes 0.5 10^3/uL (0.0-0.9); ABS Neutrophils 5.7 10^3/uL (1.5-7.6); Eosinophil % 2.5 %; Hematocrit 34.7 % (35-45); Hemoglobin 11.7 g/dL (11.5-14.3); Lymphocyte % 8.8 %; Mean Corpuscular Hemoglobin 31.2 pg (27-33); Mean Corpuscular Hgb Conc 33.8 g/dL (31-36); Mean Corpuscular Volume 92.4 fL (80-97); Mean Platelet Volume 7.1 fL (7.5-11.2); Platelet Count 258 10^3/uL (150-450); Red Blood Count 3.75 10^6/uL (3.63-4.92); Red Cell Distribution Width 14.3 % (12-17); White Blood Count 7.1 10^3/uL (3.8-11.8)
[2024-04-08 20:44] LABS: Calcium 8.7 mg/dL (8.6-10.3); Creatinine, Serum 0.88 mg/dL (0.51-0.95); Potassium 3.8 mmol/L (3.5-5.0); eGFR CKD-EPI 71.1 (>60)
[2024-04-09] MEDS ORDERED: Vancomycin 500 MG in NS 0.9% 250 ML IVPB SCH (06:00)
[2024-04-09] MEDS: DAPTOmycin 500 MG/10 ML SYRINGE IVPB SCH (08:37)
[2024-04-09 09:39] VITALS: BP 136/83
[2024-04-11] MEDS ORDERED: Vancomycin Trough Check NOTE FOLLOW UP ONE (05:30)
== END 2024-04-09 12:25 | DRG 513 ==
LOC: ED 07:18 → EDHOLD 07:18 → OBSVTOIN 18:22 → INTOOBSV 18:22 → SUATTDRO 18:22 → EDHOLD 04-01 07:07 → SUATTDRO 04-01 11:12 → AA 04-01 11:43 → SSU 04-01 15:33
PROVIDERS: ADMIT Hospitalist; ATTEND Internal Medicine